=== PATIENT | female | born 1940 | race Caucasian/White ===

== ENCOUNTER 2023-11-18 11:23 | Outpatient (OUT) | payer MEDICARE, SELFPAY ==
--- NOTE | 2023-11-18 | XR_ITS ---
The [address] [address] Patient Name: TRISHA MICHELE MRN: [id number] date: 1940 Sex: F Assigned Patient Location: Current Patient Location: Accession/Order Number: [id number] Exam Date: 11/18/2023 11:25 Report Date: 11/20/2023 13:03 At the request of: RG WELLS Procedure: XR foot LT min 3V PROCEDURE: XR foot LT min 3V HISTORY: LEFT FOOT PAIN COMPARISON: XR foot left 01/13/2020 FINDINGS: BONES:Mechanical fusion the first metatarsophalangeal joint via dorsal plate and screws; no appreciable hardware fracture loosening. No bone fracture dislocation. Complete loss of plantar arch. SOFT TISSUES:No visible soft tissue swelling. EFFUSION:None visible. OTHER: Negative. XR/XR foot LT min 3V IMPRESSION: 1. Stable surgical changes without evidence of hardware failure or change in alignment. 2. Marked pes planus. 3. Minimal osteoarthritic changes for patient's age. Electronically authenticated by: MATTI NOVA Date: 11/20/2023 13:03
== END 2023-11-18 11:24 | disposition home or self-care (01) ==
LOC: EC 11:23
PROVIDERS: Visit Provider Podiatrist Foot & Ankle Surgery
DX: M79.672 Pain in left foot (principal); M24.675 Ankylosis, left foot
CPT/HCPCS: 73630

== ENCOUNTER 2025-02-08 10:30 | Outpatient (OUT) | payer MEDICARE, SELFPAY ==
--- OUTSIDE RECORDS SUMMARY | 2025-01-31 08:20 | XMS_ITS | Encounter Summary ---
Author Organization [facility] Address [address] [place] [address] Care Team Providers Care Horse Exerciser Name Role Phone Oakes, Amy Primary Care Provider [phone] Bert Baird MD Unavailable Chloe Peña Unavailable Reason for Visit * ReasonCommentsDysphagia Encounter Details DateTypeDepartmentCare Team (Latest Contact Info)Pwrcttpoeea26/27/2025 9:20 AM EDTOffice Visit [facility] [address] [place] [address] Adry Moore MD [address] [facility] [address] [place] [address] Chronic laryngitis (Primary Dx); LPRD (laryngopharyngeal reflux disease); Hoarse Social History Tobacco UseTypesPacks/DayYears UsedDateSmoking Tobacco: NeverSmokeless Tobacco: NeverAlcohol UseStandard Drinks/WeekCommentsYes0 (1 standard drink = 0.6 oz pure alcohol)AUDIT-CAnswerDate RecordedQ1: How often do you have a drink containing alcohol?Monthly or less05/17/2023Q2: How many drinks containing alcohol do you have on a typical day when you are drinking?1 or Q3: How often do you have six or more drinks on one occasion?Never05/17/2023CommentsUnknown Sex and Gender InformationValueDate RecordedSex Assigned at BirthNot on file Legal IavTiwxsb41/01/2023 8:32 PM EDTGender IdentityNot on fileSexual OrientationNot on filedocumented as of this encounter Last Filed Vital Signs Vital SignReadingTime TakenCommentsBlood Dbpstlox724/7410 9:23 AM EDT Wkfvi744701/31/2025 9:23 AM EDTTemperature--Respiratory Rate--Oxygen Saturation-- Inhaled Oxygen Concentration--Vvboys03.9 kg (154 lb)01/31/2025 9:23 AM EDTHeight 156.2 cm (5' 1.5 )01/31/2025 9:23 AM EDTBody Mass Index28.6301/31/2025 9:23 AM EDTdocumented in this encounter Progress Notes * Adry Moore MD - 01/31/2025 9:20 AM EDT Images from the original note were not included. Subjective Patient ID: Shima Mack is a 84 y.o. female who presents for Dysphagia Pt reports a few month h/o intermittent raspy throat. No illness at onset. Occasionally chokes on water. No eval or tx yet. Review of Systems All other systems reviewed and are negative. Family History[1] Active Ambulatory Problems Diagnosis Date Noted TIA (transient ischemic attack) 07/09/2021 Dry eyes 05/14/2024 Blepharitis of upper and lower eyelids of both eyes 05/14/2024 Anxiety 01/26/2025 Atrial tachycardia (HCC) 06/13/2023 Benign essential hypertension 06/13/2023 BMI 27.0-27.9,adult 01/26/2025 Cancer (HCC) 01/26/2025 Cerumen debris on tympanic membrane of both ears 01/26/2025 Depression 01/26/2025 Esophageal reflux 01/26/2025 Fitting and adjustment of orthopedic device 09/12/2009 Follow-up examination following surgery 06/20/2009 Frequent urination 01/26/2025 Hallux rigidus, left foot 01/26/2025 Hearing loss of both ears due to cerumen impaction 01/26/2025 History of urinary tract infection 01/26/2025 HTN (hypertension) 01/26/2025 Hyperlipidemia 08/12/2018 Irregular heart beat 01/26/2025 Language impairment 01/26/2025 Memory loss 01/26/2025 Microhematuria 01/26/2025 Nocturia 01/26/2025 Obesity (BMI 30.0-34.9) 08/12/2018 Obesity 01/26/2025 Acquired hallux rigidus 01/26/2025 Hypothyroidism 06/13/2023 Overactive bladder 01/26/2025 Pain in left foot 01/26/2025 Palpitations 06/13/2023 Paroxysmal supraventricular tachycardia (HCC) 08/12/2018 Posterior tibial tendon dysfunction 01/13/2012 Primary progressive aphasia (HCC) 01/26/2025 Shoulder joint painful on movement 03/21/2010 Straining to void 01/26/2025 Urethral stricture 01/26/2025 Mixed stress and urge urinary incontinence 01/26/2025 Urgency of urination 01/26/2025 Weak urine stream 01/26/2025 Resolved Ambulatory Problems Diagnosis Date Noted No Resolved Ambulatory Problems Past Medical History: Diagnosis Date Arthritis History of being hospitalized 06/2021 Mumps Skin cancer Thyroid disorder Varicella Vertigo Surgical History[2] Allergies[3] Medications Ordered Prior to Encounter[4] Objective Last Recorded Vitals Vitals: 01/31/25 0923 BP: 129/74 Pulse: 71 ENT Physical Exam Constitutional Appearance: patient appears well-developed, well-nourished and well-groomed, Head and Face Appearance: head appears normal and face appears atraumatic; Ear Tympanic Membranes: right tympanic membrane normal; Nose External Nose: nares patent bilaterally; external nose normal; Internal Nose: septum normal; Oral Cavity/Oropharynx Tongue: normal; Oral mucosa: normal; Hard palate: normal; Soft palate: normal; Tonsils: normal; OC/OP comments: Poor IDL Neck Neck: neck normal; neck palpation normal; Thyroid: thyroid normal; Respiratory Inspection: breathing unlabored; normal breathing rate; Auscultation: breath sounds are clear; Cardiovascular Inspection: extremities are warm and well perfused; no peripheral edema present; Auscultation: regular rate and rhythm; Patient ID: Shima Mack is a 84 y.o. female. Procedures A diagnostic flexible fiberoptic laryngoscopy was performed. The flexible fiberoptic laryngoscope was placed into the nose and advanced to the level of the tip of the epiglottis. Examination of the larynx including both surfaces of the epiglottis false and true vocal folds, arytenoids and surrounding mucosal surfaces shows gisselle arytenoid erythema. Normal bilateral true vocal fold motion is present. Bilateral piriform sinuses and base of tongue appear without lesion Assessment/Plan Diagnoses and all orders for this visit: Chronic laryngitis LPRD (laryngopharyngeal reflux disease) - famotidine (Pepcid) 20 MG tablet; Take 1 tablet (20 mg) by mouth at bedtime - omeprazole (PriLOSEC) [address] capsule; Take 1 capsule (40 mg) by mouth in the morning. Take before meals. Do not crush or chew. Hoarse Clear evidence of LPRD on exam, as well as some presbylarynges. Pt has not been taking her omeprazole per daughter. I will start a more aggressive reflux regimen and review meds and reflux precautions with daughter [1] Family History Problem Relation Name Age of Onset Prostate cancer Father Cancer Other Heart disease Other [2] Past Surgical History: Procedure Laterality Date CARDIAC ELECTROPHYSIOLOGY MAPPING AND ABLATION 03/2017 Cardiovascular - Ablation HYSTERECTOMY 1987 KNEE ARTHROSCOPY W/ DEBRIDEMENT ROTATOR CUFF REPAIR Bilateral 2005 SHOULDER SURGERY Left 08/29/2023 E/O STM JAB TONSILLECTOMY 1950 TOTAL KNEE ARTHROPLASTY Bilateral [3] No Known Allergies [4] Current Outpatient Medications on File Prior to Visit Medication Sig Dispense Refill aspirin 81 MG EC tablet Take 81 mg by mouth in the morning. atorvastatin (Lipitor) 40 MG tablet Take 40 mg by mouth Daily cholecalciferol (Vitamin D-3) 25 MCG (1000 UT) capsule Take 25 mcg by mouth Cipro 500 MG tablet Take 500 mg by mouth cyanocobalamin (Vitamin B-12) 100 MCG tablet Take 100 mcg by mouth in the morning. hydroCHLOROthiazide (HYDRODiuril) 12.5 MG tablet Take 12.5 mg by mouth Daily levothyroxine (Synthroid, Levoxyl) 25 MCG tablet magnesium oxide 400 MG capsule Take 400 mg by mouth in the morning. omeprazole (PriLOSEC) [address] capsule Take 20 mg by mouth in the morning. oxybutynin XL (Ditropan-XL) 5 MG 24 hr tablet Take 5 mg by mouth Daily Rexulti 2 MG tablet Take 1 tablet by mouth Daily venlafaxine XR (Effexor XR) 37.5 MG 24 hr capsule Take 37.5 mg by mouth Daily Do not crush or chew. venlafaxine XR (Effexor XR) 75 MG 24 hr capsule Take 75 mg by mouth Daily verapamil ER (Verelan) 120 MG 24 hr capsule Take 120 mg by mouth Daily [DISCONTINUED] Brexpiprazole (Rexulti) 1 MG tablet Take 1 mg by mouth Daily [DISCONTINUED] Ozempic, 1 MG/DOSE, 4 MG/3ML solution pen-injector No current facility-administered medications on file prior to visit. documented in this encounter Plan of Treatment DateTypeDepartmentCare Team (Latest Contact Info)Qjsvxiekmxs58/11/2026 9:45 AM ESTOffice Visit [facility] [address] [phone] Raul Nuñez DO [address] [place] [address] documented as of this encounter Visit Diagnoses Diagnosis Chronic laryngitis- Primary LPRD (laryngopharyngeal reflux disease) Acute laryngitis, without mention of obstruction Hoarse Dysphonia documented in this encounter Care Teams Team MemberRelationshipSpecialtyStart DateEnd Date Aga Oakes DO [address] [place] [address] PCP - GeneralFamily Medicine10/21/23 Bert Baird MD [address] [place] [address] Referring XwgkvrscyHnfhblton80/5/ Chloe Peña PA [address] [place] [address] Physician OzhfphkueEdejnwdbn50/5/24documented as of this encounter
--- OUTSIDE RECORDS SUMMARY | 2025-02-08 10:34 | XMS_ITS | Encounter Summary ---
Author Organization [facility] Address [address] [facility] [place] [address] Care Team Providers Care Sewage Screen Operator Name Role Phone Link, Dawson VACA Primary Care Provider [phone] Aga Oakes DO Primary Care Provider Bert Baird MD Unavailable Chloe Peña Unavailable Encounter Details DateTypeDepartmentCare Team (Latest Contact Info)Jtbggkyzfkf07/16/2024Clinisync Result Encounter [facility] External Department Unsolicited Eddie Ríos DO [address] [place] [address] Social History Tobacco UseTypesPacks/DayYears UsedDateSmoking Tobacco: NeverSmokeless Tobacco: NeverAlcohol UseStandard Drinks/WeekCommentsYes0 (1 standard drink = 0.6 oz pure alcohol)AUDIT-CAnswerDate RecordedQ1: How often do you have a drink containing alcohol?Monthly or less05/17/2023Q2: How many drinks containing alcohol do you have on a typical day when you are drinking?1 or Q3: How often do you have six or more drinks on one occasion?Never4CommentsUnknown Sex and Gender InformationValueDate RecordedSex Assigned at BirthNot on file Legal AeqFfqmtp19/01/2023 8:32 PM EDTGender IdentityNot on fileSexual OrientationNot on filedocumented as of this encounter Plan of Treatment DateTypeDepartmentCare Team (Latest Contact Info)Hqargjxiage23/11/2026 9:45 AM ESTOffice Visit [facility] [address] [place] [phone] Raul Nuñez, DO [address] [place] [address] documented as of this encounter Procedures Procedure NamePriorityDate/TimeAssociated DiagnosisCommentsXR CHEST 2 VIEWS 07/22/2023 2:55 PM EDT documented in this encounter Results * XR CHEST 2 VIEWS (07/22/2023 2:55 PM EDT)Anatomical RegionLateralityModality OtherSpecimen (Source)Anatomical Location / LateralityCollection Method / VolumeCollection TimeReceived Time07/22/2023 2:55 PM EDT Narrative 07/22/2023 5:33 PM EDT Exam Date/Time: 07/22/2023 15:12 EDT Reason for Exam: Z01.818 Encounter for other preprocedural examination Report IMPRESSION: ??NO RADIOGRAPHIC EVIDENCE OF ACTIVE DISEASE IN THE CHEST. CLINICAL INFORMATION: ??Z01.818 Encounter for other preprocedural examination COMPARISON: ??None available. FINDINGS: ??Two views of the chest were obtained. ??Heart and mediastinum appear normal. ??The lungs appear clear. ??Visualized bony thorax and remainder of the chest appears unremarkable. Ordering Provider: Eddie Ríos FINAL REPORT Dictated: ??07/22/2023 5:30 pm ? Signer Zac VACA Signed (Electronic Signature): ??07/22/2023 5:30 pm Signed by: ??Signer Zac VACA Transcribed by: ??DP ? Technologist: ??LKS Technical Comments Radiation Dose: Ka,r in mGy = na DAP = na Procedure Note Radiology, Radiologist, - 07/22/2023 Exam Date/Time: 07/22/2023 15:12 EDT Reason for Exam: Z01.818 Encounter for other preprocedural examination Report IMPRESSION: NO RADIOGRAPHIC EVIDENCE OF ACTIVE DISEASE IN THE CHEST. CLINICAL INFORMATION: Z01.818 Encounter for other preproceduralexamination COMPARISON: None available. FINDINGS: Two views of the chest were obtained. Heart and mediastinumappear normal. The lungs appear clear. Visualized bony thorax and remainder ofthe chest appears unremarkable. Ordering Provider: Eddie Ríos FINAL REPORT Dictated: 07/22/2023 5:30 pm Zac Looney MD Signed (Electronic Signature): 07/22/2023 5:30 pm Signed by: Zac Looney MD Transcribed by: ELAINE Technologist: LINSEY Technical Comments Radiation Dose: Ka,r in mGy = na DAP = na Authorizing ProviderResult TypeResult StatusEddie Ríos DOCLINISYNC IMAGING Final Result documented in this encounter Visit Diagnoses Not on filedocumented in this encounter Care Teams Team MemberRelationshipSpecialtyStart DateEnd Date Dawson Giron MD PCP - GeneralFamily Kusdtgvl61/19/237 Aga Oakes DO [address] [place] [address] PCP - GeneralFamily Medicine10/21/23 Bert Baird MD [address] [place] [address] Referring XjnmewpbgDjurswrxo67/5/ Chloe Peña PA [address] [place] [address] Physician JrzrqobggZrlhpgzvb70/5/24documented as of this encounter
--- OUTSIDE RECORDS SUMMARY | 2025-02-08 10:34 | XMS_ITS | Encounter Summary ---
Author Organization [facility] Address [address] [facility] [address] Care Team Providers Care Forest Management Professor Name Role Phone Aga Oakes DO Primary Care Provider [phone] Bert Baird MD Unavailable [phone] Chloe Peña Unavailable Encounter Details DateTypeDepartmentCare Team (Latest Contact Info)Epclvasopiy85/27/2025Bamboo flowsheet [facility] [address] [place] [address] Adry Moore MD [address] [place] [address] Social History Tobacco UseTypesPacks/DayYears UsedDateSmoking Tobacco: NeverSmokeless [...] RecordedSex Assigned at BirthNot on file Legal NznHekfkt73/01/2023 8:32 PM EDTGender IdentityNot on fileSexual OrientationNot on filedocumented as of this encounter Plan of Treatment DateTypeDepartmentCare Team (Latest Contact Info)Emeefaxpkfr18/11/2026 9:45 AM ESTOffice Visit [facility] [address] [place] [address] Raul Nuñez DO [address] [place] [address] documented as of this encounter Visit Diagnoses Not on filedocumented in this encounter Care Teams Team MemberRelationshipSpecialtyStart DateEnd Date Aga Oakes DO [address] [place] [address] PCP - GeneralFamily Medicine10/21/23 Bert Baird MD [address] [place] [address] Referring VacmzhjoqVwzaznvmf09/5/ Chloe Peña PA [address] [place] [address] Physician AzocjtxcdCaridknqj72/5/24documented as of this encounter
--- OUTSIDE RECORDS SUMMARY | 2025-02-08 10:34 | XMS_ITS | Clinical Summary ---
Author Organization [facility] Address [address] [place] [address] Care Team Providers Care Medical Nurse Name Role Phone Aga Oakes Primary Care Provider [phone] Chloe Peña Unavailable Allergies No known active allergies Medications MedicationSigDispense QuantityRefillsLast FilledStart DateEnd DateStatus atorvastatin (Lipitor) 40 MG tablet Take 40 mg by mouth Daily03/25/2023ctive hydroCHLOROthiazide (HYDRODiuril) 12.5 MG tablet Take 12.5 mg by mouth Daily03/29/2023ctive levothyroxine (Synthroid, Levoxyl) 25 MCG tablet 01/06/2023ctive oxybutynin XL (Ditropan-XL) 5 MG 24 hr tablet Take 5 mg by mouth Daily03/29/2023ctive venlafaxine XR (Effexor XR) 75 MG 24 hr capsule Take 75 mg by mouth Daily03/29/2023ctive verapamil ER (Verelan) 120 MG 24 hr capsule Take 120 mg by mouth Daily04/29/2023ctive aspirin 81 MG EC tablet Take 81 mg by mouth in the morning.Active cholecalciferol (Vitamin D-3) 25 MCG (1000 UT) capsule Take 25 mcg by mouthActive cyanocobalamin (Vitamin B-12) 100 MCG tablet Take 100 mcg by mouth in the morning.Active magnesium oxide 400 MG capsule Take 400 mg by mouth in the morning.Active Cipro 500 MG tablet Take 500 mg by mouth07/11/2023ctive venlafaxine XR (Effexor XR) 37.5 MG 24 hr capsule Take 37.5 mg by mouth Daily Do not crush or chew.Active Rexulti 2 MG tablet Take 1 tablet by mouth Daily07/21/2024tive famotidine (Pepcid) 20 MG tablet Indications:LPRD (laryngopharyngeal reflux disease)Take 1 tablet (20 mg) by mouth at bedtime 90 tablet ctive omeprazole (PriLOSEC) [address] capsule Indications:LPRD (laryngopharyngeal reflux disease)Take 1 capsule (40 mg) by mouth in the morning. Take before meals. Do not crush or chew. 90 capsule ctive Ozempic, 1 MG/DOSE, 4 MG/3ML solution pen-injector Discontinued(Therapy completed) omeprazole (PriLOSEC) [address] capsule Take 20 mg by mouth in the morning.01/31/2025Discontinued Brexpiprazole (Rexulti) 1 MG tablet Take 1 mg by mouth Daily01/31/2025Discontinued(Therapy completed) Active Problems ProblemNoted DateDiagnosed KvgyBtzvuvc75/22/2025MI 27.0-27.9,adult01/26/2025 Aaniwg7201/26/2025erumen debris on tympanic membrane of both ears01/26/2025 Hebtxtjhon66/22/2025Esophageal yfkvbe4101/26/2025Frequent /22/2025 Hallux rigidus, left foot01/26/2025Hearing loss of both ears due to cerumen jrvcppnuk35/22/2025History of urinary tract cuzvfuxve95/22/2025HTN (hypertension)01/26/2025Irregular heart beat01/26/2025Language impairment 01/26/2025Memory loss01/26/20250909Ptmhxvttvmieom28/22/0274Uqwbxpby09/22/2025Obesity 01/26/2025quired hallux gxmfgnh2501/26/2025Overactive grkfidg3801/26/2025Pain in left foot01/26/2025Primary progressive izjfgfd0901/26/2025Straining to void 01/26/2025Urethral frybdvrlf13/22/2025Mixed stress and urge urinary incontinence 01/26/2025Urgency of gmubsdzmf91/22/2025Weak urine caslud3701/26/2025Dry eyes 05/14/2024lepharitis of upper and lower eyelids of both eyes05/14/2024trial cddojfpatvx09/08/2024enign essential lutsvajqnptb44/08/2024Hypothyroidism 06/13/20239099Knwporjpueje17/08/2024TIA (transient ischemic attack)07/09/2021 Overview (12/10/2023): Patient was seen at [facility] 06/25/2021 to 06/26/2021 for concern for stroke due to paresthesias of the left arm. CTA of the head and MRA of the head were nonacute. Head CT was nonacute. Brain MRI revealedno acute process. It did reveal chronic changes likely consistent with small vessel ischemic changes. Carotid ultrasound revealed less that 50% stenosis of carotids bilaterally. Her symptoms have reso lved. She does follow with massage therapy for neck pain. Overall, she is feeling back to baseline and is compliant with aspirin. Assessment & Plan (10/11/2023 9:43 AM EDT): *07/30/2021 Patient was seen at [facility] 06/25/2021 to 06/26/2021 for concern for stroke due to paresthesias of the left arm. CTA of the head and MRA of the head were nonacute. Head CT was nonacute. Brain MRI revealedno acute process. It did reveal chronic changes likely consistent with small vessel ischemic changes. Carotid ultrasound revealed less that 50% stenosis of carotids bilaterally. Her symptoms have reso lved. She does follow with massage therapy for neck pain. Overall, she is feeling back to baseline and is compliant with aspirin. Gxwtbjyynonxbx74/08/2019 Overview (01/26/2025): Last Assessment & Plan: Assessment: Managed with med Obesity (BMI 30.0-34.9)08/12/2018Paroxysmal supraventricular tachycardia 08/12/2018 Overview (01/26/2025): Last Assessment & Plan: Assessment: s/p ablation 01/2018; Monitored by Dr. Maritza Sagastume, no other episodes since. Posterior tibial tendon kjpqylscfkp10/08/2012Shoulder joint painful on movement 03/21/2010Fitting and adjustment of orthopedic ekdtvr9909/12/2009Follow-up examination following iwbjlur9806/20/2009 Encounters DateTypeDepartmentCare QjgtQwadtcabpoy51/27/2025 9:20 AM EDTOffice Visit [facility] [address] [place] [phone] Adry Moore MD Chronic laryngitis (Primary Dx); LPRD (laryngopharyngeal reflux disease); Tfswsa6101/31/2025amboo flowsheet [facility] [address] [place] [address] Adry Moore MD 01/31/2025Travelfrom Last 3 Months Immunizations ImmunizationAdministration DatesNext DueInfluenza, High Dose Seasonal, Preservative Free01/22/2021,01/26/2019,01/15/2018,01/15/2017Influenza, High-dose Seasonal, Quadrivalent, Preservative Free12/31/2022,01/16/2022Influenza, live, kjeccqrlmt86/19/2019Influenza, seasonal, ntcgtyczsp39/01/2020,01/05/2019, 01/23/2015,01/18/2013Influenza, seasonal, injectable, preservative free 12/27/2019Pneumococcal Conjugate PCV 1310187Anza79/11/2023Zoster, Vwsjvcywflx23/23/2019,01/21/2019 Family History Medical HistoryRelationNameCommentsProstate cancerFatherCancerOtherHeart disease OtherRelationNameStatusCommentsFatherOther Social History Tobacco UseTypesPacks/DayYears UsedDateSmoking Tobacco: NeverSmokeless [...] RecordedSex Assigned at BirthNot on file Legal HopQkpiuo63/01/2023 8:32 PM EDTGender IdentityNot on fileSexual OrientationNot on file Last Filed Vital Signs Vital SignReadingTime TakenCommentsBlood Ynvknvnl805/7401/31/2025 9:23 AM EDT Nodip557901/31/2025 9:23 AM MBHRzqtdsvduqw85.2 ??C (97.2 ??F)06/05/2023 9:04 AM ESTRespiratory Sjqa962507/07/2024 1:59 PM EDTOxygen Onmtniltst98%07/07/2024 1:59 PM EDTInhaled Oxygen Concentration--Yxqmve76.9 kg (154 lb)01/31/2025 9:23 AM EDT Rdfbou774.2 cm (5' 1.5 )01/31/2025 9:23 AM EDTBody Mass Index28.6301/31/2025 9:23 AM EDT Plan of Treatment DateTypeDepartmentCare Team (Latest Contact Info)Sgtyzblucao63/11/2026 9:45 AM ESTOffice Visit [facility] [address] [place] [phone] Raul Nuñez, DO [address] [place] [address] Health MaintenanceDue DateLast DoneCommentsPneumococcal Vaccine: 65+ Years (2 of 2 - PCV20 or PCV21)COVID-19 Vaccine ( season) 4, 02/09/2021, 07/15/2020, Additional history existsInfluenza Vaccine (#1)509/, 01/16/2022, 01/22/2021, Additional history exists Insurance Care Teams Team MemberRelationshipSpecialtyStart DateEnd Date Aga Oakes DO [address] [place] [address] PCP - GeneralFamily Medicine10/21/23 Chloe Peña PA [address] [place] [address] Physician EmnumhvfmLlnzpwbwh91/5/24
--- OUTSIDE RECORDS SUMMARY | 2025-02-08 10:34 | XMS_ITS | Encounter Summary ---
Author Organization [facility] Address [address] [place] [address] Care Team Providers Care Space Operations Name Role Phone Aga Oakes Primary Care Provider [phone] Bert Baird MD Unavailable [phone] Chloe Peña Unavailable Encounter Details DateTypeDepartmentCare Team (Latest Contact Info)Srpsdsihrwe45/27/2025Travel Social History Tobacco UseTypesPacks/DayYears UsedDateSmoking Tobacco: NeverSmokeless [...] RecordedSex Assigned at BirthNot on file Legal FrgGvsarz77/01/2023 8:32 PM EDTGender IdentityNot on fileSexual OrientationNot on filedocumented as of this encounter Plan of Treatment DateTypeDepartmentCare Team (Latest Contact Info)Klpiofixyej34/11/2026 9:45 AM ESTOffice Visit [facility] [address] [place] [address] Raul Nuñez, DO [address] [place], [place] [address] documented as of this encounter Visit Diagnoses Not on filedocumented in this encounter Care Teams Team MemberRelationshipSpecialtyStart DateEnd Date Aga Oakes DO [address] [facility] [address] [facility] - [facility]10/21/23 Bert Baird MD [address] [facility] [address] Referring BdnsmwufzJndkkamyw47/5/ Chloe Peña PA [address] [place] [address] Physician DladiojquJgixwvzxv64/5/24documented as of this encounter
--- OUTSIDE RECORDS SUMMARY | 2025-02-08 10:34 | XMS_ITS | Clinical Summary ---
Author Organization [facility] Address [address] [place] [address] Phone Care Team Providers Care Gluing Machine Operator Electronic Name Role Phone Link, Dawson Juarez DO Primary Care Provider [phone] Allergies No known active allergies Medications MedicationSigDispense QuantityRefillsLast FilledStart DateEnd DateStatus aspirin 81 mg EC tablet Take 1 tablet (81 mg) by mouth once daily.Active atorvastatin (Lipitor) 10 mg tablet Take 1 tablet (10 mg) by mouth once daily at bedtime.07/02/2018Active cholecalciferol (Vitamin D-3) 25 MCG (1000 UT) capsule Take 1 capsule (25 mcg) by mouth.Active cyanocobalamin (Vitamin B-12) 100 mcg tablet Take 1 tablet (100 mcg) by mouth once daily.Active levothyroxine (Synthroid, Levoxyl) 25 mcg tablet Take 1 tablet (25 mcg) by mouth.01/06/2023ctive magnesium oxide 400 mg magnesium capsule Take 1 capsule (400 mg) by mouth once daily.Active multivitamin tablet Take 1 tablet by mouth.05/22/2009ctive omeprazole (PriLOSEC) [address] capsule Take 1 capsule (20 mg) by mouth once daily.Active venlafaxine (Effexor) 75 mg tablet Take 1 tablet (75 mg) by mouth once daily.Active verapamil ER (Veralan PM) 120 mg 24 hr capsule Take 1 capsule (120 mg) by mouth once daily.06/02/2018Active Active Problems ProblemNoted DateDiagnosed DateAtrial tkghjlcaebp22/08/2024enign essential fnmrspzmadmq37/08/6719Sthxmcrwimpghu83/08/1829Laktjltrkzgs90/08/2024 Qdtazyaujbjlfv11/08/2019 Overview (06/13/2023): Last Assessment & Plan: Assessment: Managed with med Paroxysmal supraventricular pnzcbiwmhew05/08/2019 Overview (06/13/2023): Last Assessment & Plan: Assessment: s/p ablation 01/2018; Monitored by Dr. Maritza Sagastume, no other episodes since. Family History Medical HistoryRelationNameCommentsCancerFatherCancerMotherRelationNameStatus CommentsFatherMother Social History Tobacco UseTypesPacks/DayYears UsedDateSmoking Tobacco: Never Tobacco Cessation:Counseling Given: Not Answered Alcohol UseStandard Drinks/WeekCommentsNever0 (1 standard drink = 0.6 oz pure alcohol)CommentsUnknownSex and Gender InformationValueDate RecordedSex Assigned at BirthNot on fileLegal QfyRwibqq29/26/2022 12:13 AM ESTGender IdentityNot on fileSexual OrientationNot on file Last Filed Vital Signs Vital SignReadingTime TakenCommentsBlood Ddshbnxh434/6206 9:47 AM EDT Tizui594009/10/2022 9:47 AM EDTTemperature--Respiratory Rate--Oxygen Saturation-- Inhaled Oxygen Concentration--Begifw50.5 kg (162 lb)09/10/2022 9:47 AM EDTHeight 157.5 cm (5' 2 )09/10/2022 9:47 AM EDTBody Mass Index29.63009/10/2022 9:47 AM EDT Plan of Treatment Health MaintenanceDue DateLast DoneCommentsLipid Panel1941Medicare Annual Wellness Visit (AWV)1941TSH Level2Diabetes Uftdcrzcy98/08/1960 DTaP/Tdap/Td Vaccines (1 - Tdap)1963Pneumococcal Vaccine (1 of 1 - PCV) 1991Zoster Vaccines (1 of 2)1991Bone Density Scan2006RSV High Risk: (Elderly (60+) or Population) (1 - 1-dose 75+ series)2016 Influenza Vaccine (#1)2024OVID-19 Vaccine (2024- season)2024 HIB VaccinesAged OutNo longer eligible based on patient's age to complete this topicHPV VaccinesAged OutNo longer eligible based on patient's age to complete this topicHepatitis A VaccinesAged OutNo longer eligible based on patient's age to complete this topicHepatitis B VaccinesAged OutNo longer eligible based on patient's age to complete this topicIPV VaccinesAged OutNo longer eligible based on patient's age to complete this topicMeningococcal VaccineAged OutNo longer eligible based on patient's age to complete this topicRotavirus VaccinesAged Out No longer eligible based on patient's age to complete this topic Insurance Care Teams Team MemberRelationshipSpecialtyStart DateEnd Date Link, Dawson Juarez DO [facility] - General04/07/11
--- OUTSIDE RECORDS SUMMARY | 2025-02-08 10:36 | XMS_ITS | CCD ---
Author Organization [facility] Care Team Providers Care Order Department Supervisor Name Role Phone CARLITOS, AUTUMN Unavailable Unavailable CARLITOS, AUTUMN Unavailable Unavailable EDVIN-ÓSCAR, PORFIRIO Unavailable Unavailable MOSTLALITA JG Justa Unavailable Unavailable EDVIN-CANTRELL, PORFIRIO Unavailable Unavailable MOSTLALITA JG D Unavailable Unavailable MOSTLALITA JG D Unavailable Unavailable KRYSTINA, PORFIRIO Unavailable Unavailable ROLDAN SALAS Unavailable Unavailable KRYSTINA PORFIRIO Unavailable Unavailable ZACHARY RIVERA Admitting Unavailable ZACHARY RIVERA Attending Unavailable MATTI NOVA Consulting Unavailable ZACHARY RIVERA Consulting Unavailable ZACHARY RIVERA Admitting Unavailable ZACHARY RIVERA Attending Unavailable MIS, DOCTOR Primary Care Unavailable ZACHARY RIVERA Consulting Unavailable Dawson Giron Primary Care Physician Heather Robledo Unavailable Unavailable Anamaria Finch Unavailable Unavailable Dawson Giron Unavailable Unavailable Unavailable Avel Werner Unavailable MD Avel Werner Attending Provider Avel Werner Attending Unavailable Avel Werner Admitting Unavailable Magalis Power Unavailable Dr. Dawson Giron Primary Care Unava ilable Roldan Salas Attending Unavailable Roldan Salas Referring Unavailable Dawson Giron MD Primary Care Provider Luann Ford Primary Care Physician [phone] Elizabeth Rebollar Unavailable Unavailable Aga Oakes Primary Care Physician [phone] Matti Baird Attending Unavailable Matti Baird Admitting Unavailable Aga Oakes MD Primary Care Provider Matti Baird MD Unavailable [phone] Chloe Henning Unavailable Adán Caba Attending Unavailable Aga Oakes Referring Unavailable Urmila Bueno Attending Unavailable Vee Sutherland Attending Unavailable Aga Oakes Referring Unavailable Aga Oakes Attending Unavailable Dileep Leija, Chris Attending Provider NON STAFF Primary Care Provider Unavailabl e NON STAFF Primary Care Provider Unavailabl e Dileep PhD, Chris Attending Provider Nitin SINGH Attending Unavailable Aga Oakes Attending Unavailable Aga Oakes Admitting Unavailable Urmila Bueno Attending Unavailable Vee Sutherland Attending Unavailable Aga Oakes Referring Unavailable Aga Oakes Attending Unavailable Aga aOkes DO Primary Care Provider Oli VACA, Matti Unavailable Chloe Henning Unavailable Dawson Giron MD Primary Care Provider OUMOU RODARTE Attending Unavailable NATASHA STUBBS Attending Unavailable NATASHA STUBBS Attending Unavailable EDDIE SIDHU Referring Unavailable EDDIE SIDHU Attending Unavailable RIOS CANO Attending Unavailable Medications Current Medications MedicationDrug Class(es)DatesSig (Normalized)Sig (Original)amoxicillin 500 mg oral capsule (2 sources)Penicillin-class AntibacterialStart: 25-57-7628Jrjgftaeagh 500 MG 6 capsules before procedure and 3 after procedure Orally every 8 hrs for 10 day(s) Jul, ActiveAspir 81 (18 sources)Start: 67-80-7434pgvd 81 mg by mouth once dailyAspir 81 81 mg, Oral, Daily, Refills(s) 0, Prophylaxis Start Date: 03/19/15 Status: Ordered Repeat n umber: 1Start: 11-76-6265kscx 81 mg by mouth once dailyAspir 81 81 mg, Oral, Daily, Refills(s) 0, Prophylaxis Start Date: 03/19/15 Status: OrderedAspir-81 81 MG (2 sources)take 1 tablet by mouth once dailyAspir-81 81 MG 1 tablet Orally Once a day Activeaspirin 81 mg delayed release oral tablet (20 sources)Platelet Aggregation Inhibitor, Nonsteroidal Anti-inflammatory Drug take 1 tablet by mouth in the morningaspirin 81 MG EC tablet Take 81 mg by mouth in the morning. Activeatorvastatin 40 mg oral tablet (20 sources)HMG-CoA Reductase InhibitorStart: 88-83-9756axxq 1 tablet by mouth once dailyatorvastatin (Lipitor) 40 MG tablet Take 40 mg by mouth Daily 03/25/2023 ActiveStart: 52-58-3014ncac 1 tablet by mouth once dailyatorvastatin 10 mg Tab 10 mg = 1 tab(s), Oral, Daily, Refills(s) 0 Start Date: 06/26/21 Status: Ordered Repeat number: 1brexpiprazole 2 mg oral tablet (10 sources)Atypical AntipsychoticStart: 10-82-3660ovxe 1 tablet by mouth once dailyRexulti 2 MG tablet Take 1 tablet by mouth Daily 07/21/2024 Active End: 14-92-7639ecvy 1 tablet by mouth once dailyBrexpiprazole (Rexulti) 1 MG tablet Take 1 mg by mouth Daily 01/31/2025 Discontinued (Therapy completed) Calcium (2 sources)Phosphate Binder, CalciumCalcium 150 MG Orally ActiveCentrum Silver - (2 sources)Centrum Silver - Orally Activecholecalciferol 0.025 mg oral capsule (20 sources)Vitamin Dcholecalciferol (Vitamin D-3) 25 MCG (1000 UT) capsule Take 25 mcg by mouth ActiveVitamin D (Cholecalciferol) 25 MCG (1000 UT) Oral Capsule Quantity: 0 Refills: 0 Ordered: 21-May-2021 DO Activeciprofloxacin 500 mg oral tablet (20 sources)Quinolone AntimicrobialStart: 07-11-2023 End: 71-16-9256Xfenx 500 MG tablet Take 500 mg by mouth 07/11/2023 Active famotidine 20 mg oral tablet (2 sources)Histamine-2 Receptor AntagonistStart: 01-31-2025 End: 95-14-8264ztfs 1 tablet by mouth at bedtimefamotidine (Pepcid) 20 MG tablet Indications: LPRD (laryngopharyngeal reflux disease) Take 1 tablet(20 mg) by mouth at bedtime 90 tablet 01/31/2025 05/01/2025 ActivehydroCHLOROthiazide 12.5 mg oral tablet (20 sources)Thiazide DiureticStart: 08-39-0638ejyz 1 tablet by mouth once daily hydroCHLOROthiazide (HYDRODiuril) 12.5 MG tablet Take 12.5 mg by mouth Daily 03/29/2023 Activelevothyroxine sodium 0.025 mg oral tablet (20 sources)l-ThyroxineStart: 45-83-3253upbrzjknqsqzn (Synthroid, Levoxyl) 25 MCG tablet 01/06/2023 ActiveStart: 56-87-7102rcdg 1 tablet by mouth once daily levothyroxine 25 mcg (0.025 mg) Tab 37.5 mcg = 1.5 tab(s), Oral, Daily, Refills(s) 0 Start Date: 06/26/21 Status: Ordered Repeat number: 1Start: 66-42-7044qwcv 1 tablet by mouth once dailylevothyroxine 25 mcg (0.025 mg) Tab 37.5 mcg = 1.5 tab(s), Oral, Daily, Refills(s) 0 Start Date: 06/26/21 Status: Orderedtake 1 tablet by mouth once dailyLevothyroxine Sodium 25 MCG Oral Tablet TAKE 1 TABLET DAILY. Quantity: 0 Refills: 0 Ordered: 21-May-2021 DO Activetake 1 tablet by mouth once daily in the morningSynthroid 50 MCG 1 tablet on an empty stomach in the morning Orally Once a day ActiveLORazepam 2 mg oral tablet (2 sources)Benzodiazepinetake 1 tablet by mouth every twenty-four hoursAtivan 2 MG 1 tablet at bedtime as needed Orally Once a day ActiveMagnesium (2 sources)take 2 tablets by mouth once dailyMagnesium 200 MG 2 tablets with a meal Orally Once a day Activemagnesium oxide 400 mg oral capsule (20 sources)take 1 capsule by mouth in the morningmagnesium oxide 400 MG capsule Take 400 mg by mouth in the morning. ActiveMagnesium Oxide 400 MG CAPS TAKE DIRECTED. Quantity: 0 Refills: 0 Ordered: 21-May-2021 DO ActiveMultivitamins and Minerals (18 sources)Start: 33-81-4142vgnu 1 tablet by mouth once dailyMultivitamins and Minerals 1 tab(s), Oral, Daily, Refill(s) 0 Start Date: 06/26/21 Status: Ordered Repeat number: 1Start: 72-73-4647wzff 1 tablet by mouth once dailyMultivitamins and Minerals 1 tab(s), Oral, Daily, Refill(s) 0 Start Date: 06/26/21 Status: Orderedomeprazole 40 mg delayed release oral capsule (20 sources)Proton Pump InhibitorStart: 01-31-2025 End: 53-97-1447zcyc 1 capsule by mouth before mealtimeomeprazole (PriLOSEC) [address] capsule Indications: LPRD (laryngopharyngeal reflux disease) Take 1 c apsule (40 mg) by mouth in the morning. Take before meals. Do not crush or chew. 90 capsule 01/31/2025 05/01/2025 ActiveStart: 06-26-2021 End: 28-06-8831burb 1 capsule by mouth once dailyomeprazole 20 mg Cap-DR 20 mg = 1 cap(s), Oral, Daily, Refills(s) 0 Start Date: 06/26/21 Status: Ordered Repeat number: 1omeprazole 20 mg Cap-DR (2 sources)Start: 33-57-4028qpnw 1 capsule by mouth once dailyomeprazole 20 mg Cap-DR 20 mg = 1 cap(s), Oral, Daily, Refills(s) 0 Start Date: 06/26/21 Status: Jdurcun22 hr oxybutynin chloride 5 mg extended release oral tablet (20 sources)Cholinergic Muscarinic AntagonistStart: 94-64-9863dfua 1 tablet by mouth once dailyoxybutynin XL (Ditropan-XL) 5 MG 24 hr tablet Take 5 mg by mouth Daily 03/29/2023 ActiveStart: 75-10-7559upwt 1 tablet by mouth every twenty-four hours in the morningoxybutynin XL (Ditropan-XL) 5 MG 24 hr tablet Take 5 mg by mouth in the morning. 03/29/2023 ActiveStart: 76-30-9748olxj 1 tablet by mouth once daily as neededoxybutynin 5 mg Tab 5 mg = 1 tab(s), Oral, Daily, PRN for urinary discomfort, # 90 tab(s), Refills(s) 3, Pharmacy: [facility], 156, cm, 07/16/21 10:02:00 EDT, Height/Length Dosing,81, kg, 07/16/21 10:02:00 EDT, Weight Dosing Start Date: 07/16/21 Status: Ykucacx57 hr venlafaxine 75 mg extended release oral capsule (20 sources)Serotonin and Norepinephrine Reuptake InhibitorStart: 37-45-8146lwca 1 capsule by mouth once dailyvenlafaxine XR (Effexor XR) 75 MG 24 hr capsule Take 75 mg by mouth Daily 03/29/2023 ActiveStart: 33-77-0854yvuq 1 capsule by mouth every twenty-four hours in the morningvenlafaxine XR (Effexor XR) 75 MG 24 hr capsule Take 75 mg by mouth in the morning. 03/29/2023 ActiveStart: 43-90-6362sojf 1 tablet by mouth once dailyvenlafaxine 75 mg oral tablet, extended release 75 mg = 1 tab(s), Oral, Daily, Refills(s) 0 Start Date: 06/26/21 Status: Ordered Repeat number: 1take 1 capsule by mouth once dailyvenlafaxine XR (Effexor XR) 37.5 MG 24 hr capsule Take 37.5 mg by mouth Daily Do not crush or chew.Activetake 1 tablet by mouth once dailyVenlafaxine HCl - 75 MG Oral Tablet TAKE 1 TABLET DAILY. Quantity: 0 Refills: 0 Ordered: 21-May-2021 DO Ozumwn97 hr verapamil hydrochloride 120 mg extended release oral capsule (20 sources)Calcium Channel BlockerStart: 40-28-5899nkxw 1 capsule by mouth every twenty-four hours in the morningverapamil ER (Verelan) 120 MG 24 hr capsule Take 120 mg by mouth in the morning. 04/29/2023 ActiveStart: 09-10-2022 take 0.5 tablet by mouth once dailyVerapamil HCl ER 120 MG Oral Tablet Extended Release TAKE 0.5 TABLET Daily Quantity: 45 Refills: 3 Ordered: 10-Sep-2022 Roldan Salas MD Start : 10-Sep-2022 ActiveStart: 35-80-4144xivj 1 capsule by mouth once dailyverapamil ER (Verelan) 120 MG 24 hr capsule Take 120 mg by mouth Daily 04/29/2023 ActiveStart: 39-79-5132weoy 1 capsule by mouth once daily verapamil 120 mg Cap-ER 120 mg = 1 cap(s), Oral, Daily, Refills(s) 0 Start Date: 06/26/21 Status: OrderedVitamin B Complex (2 sources)Vitamin B Complex - Orally Activevitamin b12 0.1 mg oral tablet (19 sources)Vitamin N06cony 1 tablet by mouth in the morningcyanocobalamin (Vitamin B-12) 100 MCG tablet Take 100 mcg by mouth in the morning. Active Completed/Discontinued Medications MedicationDrug Class(es)DatesSig (Normalized)Sig (Original)betamethasone 3 mg/ml / betamethasone acetate 3 mg/ml injectable suspension (8 sources)CorticosteroidStart: 07-26-2024 End: 85-40-8487vbzwohsuyzqvq acetate-betamethasone sodium phosphate (Celestone) injection 1 mLStart: 07-26-2024 End: mL, Intra-articular, Once PRN Procedure, Starting on Fri07/26/24 at 1015, For 1 dosecelecoxib 100 mg oral capsule (2 sources)Nonsteroidal Anti-inflammatory DrugStart: 08-29-2023 End: 25-38-0465cyjx 1 capsule by mouth in the morning for paincelecoxib (CeleBREX) 100 MG capsule Indications: Status post shoulder surgery Take 1 capsule (100 mg) by mouth in the morning and 1 capsule (100 mg) before bedtime. Take as needed for pain. 60 capsule 08/29/2023 11/27/2023 ExpiredMulti Vitamin TABS (3 sources)Multi Vitamin TABS TAKE 1 TABLET DAILY. Quantity: 0 Refills: 0 Ordered: 21-May-2021 DO ActiveOzempic, 1 MG/DOSE, 4 MG/3ML solution pen-injector (20 sources)Start: 03-25-2023 End: 73-38-5702Tvkfmyd, 1 MG/DOSE, 4 MG/3ML solution pen-injector 03/25/2023 01/31/2025 Discontinued (Therapy completed)Start: 84-34-8425Gdloptb, 1 MG/DOSE, 4 MG/3ML solution pen-injector 03/25/2023 ActiveStart: 22-87-1232ollbes 1 mg by subcutaneous injection every weekOzempic, 1 MG/DOSE, 4 MG/3ML solution pen- injector INJECT 1 MG SUBCUTANEOUSLY ONCE A WEEK 03/25/2023 ActiveStart: 90-03-2413fxyrus 1 mg by subcutaneous injection every weekOzempic, 1 MG/DOSE, 4 MG/3ML solution pen-injector INJECT 1 MG SUBCUTANEOUSLY ONCE A WEEK 0 03/25/2023 Activetriamcinolone acetonide 40 mg/ml injectable suspension (3 sources)CorticosteroidStart: 32-25-1012Xcazjzk-40 Jul, 40 mgStart: 21-47-5531Vgvzzug -40 mg Jan, 40 mgStart: 78-80-1737Vmflvbu -40 mg Mar, 40 mgVitamin B12 TABS (3 sources)Vitamin B12 TABS TAKE 1 TABLET DAILY DIRECTED. Quantity: 0 Refills: 0 Ordered: 21-May-2021 DO Active Problems Active Problems Problem ClassificationProblemDateDocumented DateEpisodic/ChronicAcquired foot deformities (8 sources)Toe joint rigid; Translations: [Hallux rigidus, left foot]Onset: 228822-43-8688YesrrlrEgkvuie disorders (10 sources)Anxiety; Translations: [Anxiety disorder, unspecified]Onset: 868711-48-5700VegngvxYhzsyxi dysrhythmias (20 sources)Supraventricular tachycardia; Translations: [Supraventricular tachycardia]Onset: 28-21-7441RllvtziDvwtqhfq atherosclerosis and other heart disease (2 sources)Coronary atherosclerosis and other heart diseaseOnset: 11-21-2016 Delirium, dementia, and amnestic and other cognitive disorders (20 sources)Progressive aphasia; 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]Onset: 01-26-2025 98-10-7800YglafeoAzsvcadossqbr disorders (8 sources)Disorder of language; 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, unspecified]Onset: 508363-58-0680LlvhoezIvcmskmwj of lipid metabolism (20 sources)Hyperlipidemia, unspecified; Translations: [Hyperlipidemia]Onset: 52-19-8463MthjgnjK Codes: Fall (1 source)Fall; Translations: [Unspecified fall, initial encounter]Onset: 26-24-7911QwdiovqnIrwclgthau disorders (20 sources)Gastroesophageal reflux disease without esophagitis; Translations: [Gastro-esophageal reflux disease without esophagitis]Onset: 93-46-4993Cfqrygf Essential hypertension (20 sources)Essential hypertension; Translations: [Essential (primary) hypertension]Onset: 34-99-9028VwqssqhBgqaqwfijsily symptoms and ill-defined conditions (20 sources)Genuine stress incontinence; Translations: [Urge incontinence of urine]Onset: 563365-19-6256PplzhebDordpvgryglnz symptoms and ill-defined conditions (20 sources)Abnormal urinary stream; Translations: [History of urinary tract infection]Onset: 512887-08-1618WmdwbjvuIshzl valve disorders (18 sources)Irregular heart bxfm85-09-1939AvaxubslPqnfkkqzz neoplasm without specification of site (20 sources)Malignant neoplastic disease; Translations: [Malignant (primary) neoplasm, unspecified]Onset: 780246-73-5035UfqlbefOufq disorders (20 sources)Depressive disorder; Translations: [Depression, unspecified]Onset: 17-54-5401XifdfeuXbne disorders (1 source)Mood disordersOnset: 14-93-1291Sycisfdqudpman (6 sources)Arthritis of right glenohumeral joint; Translations: [Primary osteoarthritis, right shoulder]Onset: 02-01-2021 Resolved: 76-30-7667AihsyzeGbwwt circulatory disease (4 sources)Other specified symptoms and signs involving the circulatory and respiratory systems; Translations:[OTH SPEC SX SIGNS INVLV CIRC RS]Onset: 17-81-0303EafwgiijAkahf circulatory disease (8 sources)History of transient ischemic attack; Translations: [Personal history of transient ischemic attack (TIA), and cerebral infarction without residual deficits]94-98-8202GacgjbarIhrjl connective tissue disease (1 source)Pain in left foot; Translations: [PAIN IN LEFT FOOT]Onset: 01-28-2020 EpisodicOther connective tissue disease (1 source)Pain in right foot; Translations: [PAIN IN RIGHT FOOT]Onset: 54-38-9015YexrtokoRlpee connective tissue disease (2 sources)Nontraumatic rotator cuff tear; Translations: [Unspecified rotator cuff tear or rupture of right shoulder, not specified as traumatic]EpisodicOther connective tissue disease (2 sources)Unspecified rotator cuff tear or rupture of right shoulder, not specified as traumatic; Translations: [Nontraumatic tear of right rotator cuff, unspecified tear extent M75.101]Onset: 02-01-2021 Resolved: 68-60-0983WrbyuaiwHhszo connective tissue disease (4 sources)Pain in left foot; Translations: [Pain in left foot]Onset: 01-26-2025 76-85-1179PperajbeUekmu diseases of bladder and urethra (16 sources)Overactive bladder; Translations: [Overactive bladder]Onset: 966676-31-9231KophcdtQzkmv diseases of bladder and urethra (4 sources)Detrusor overactivity; Translations: [Overactive bladder]Onset: 89-27-4310QnsapyxOdwlj diseases of bladder and urethra (20 sources)Urethral stricture; Translations: [Unspecified urethral stricture, male, unspecified site]Onset: 336529-10-5174FpmvcrvmPcrzi diseases of bladder and urethra (3 sources)Male urethral stricture; Translations: [Unspecified urethral stricture, male, unspecified site]Onset: 17-62-5059WdtxgtzrQntcz diseases of kidney and ureters (2 sources)Acquired renal cyst 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; Translations: [Cyst of kidney, acquired]Onset: 76-24-2708FfnhxodcDysfb ear and sense organ disorders (13 sources)Bilateral hearing gpwz94-55-8525JqgwfcvElgqf ear and sense organ disorders (2 sources)Impacted cerumen of bilateral ears; Translations: [Impacted cerumen, bilateral]Onset: 19-13-5252LmmcecysYufgt ear and sense organ disorders (17 sources)Excessive cerumen in ear canal ; Translations: [Impacted cerumen, bilateral]Onset: 743382-05-1074XjppratfErbvm ear and sense organ disorders (4 sources)Bilateral hearing loss; Translations: [Impacted cerumen, bilateral] Onset: 185275-91-1695OqgpkyxhXmykf injuries and conditions due to external causes (1 source)Injury of head; Translations: [Unspecified injury of head, initial encounter]Onset: 41-90-3922NbedvhllTpjco nervous system disorders (1 source)Paresthesia; Translations: [Paresthesia of skin]Onset: 06-25-2021 EpisodicOther non-traumatic joint disorders (4 sources)Pain in left ankle and joints of left foot; Translations: [PAIN IN LEFT ANKLE]Onset: 36-61-4240AyrxrghbTnrvf non-traumatic joint disorders (2 sources)Pain in right shoulder; Translations: [Acute pain of right shoulder M25.511]Onset: 02-01-2021 Resolved: 15-39-5936WycnnhxtZsfxf non-traumatic joint disorders (2 sources)Pain in left shoulder; Translations: [Pain in joint, shoulder region] 61-58-1041UmkdkkkzSxzqs nutritional; endocrine; and metabolic disorders (20 sources)Obesity; Translations: [Obesity, unspecified]Onset: 06-25-2021 ChronicOther nutritional; endocrine; and metabolic disorders (4 sources)Obese class I; Translations: [Obesity (BMI 30.0-34.9)]Onset: 900932-16-2312NwsrzmfDgrib nutritional; endocrine; and metabolic disorders (20 sources)Overweight in adulthood with body mass index of 25 or more but less than 30; Translations: [Overweight]Onset: 00-84-2385QaxhayaaAencp upper respiratory disease (2 sources)Chronic laryngitis; Translations: [Chronic laryngitis]01-31-2025 ChronicOther upper respiratory disease (2 sources)Hoarse; Translations: [Dysphonia]60-28-9052AjwukxkiIvlrsmlniblyqt care; fitting of prostheses; and adjustment of devices (4 sources)Patient encounter status; Translations: [Encounter for fitting and adjustment of other specified devices]Onset: 005555-26-5949VdpjlonPqojavxj codes; unclassified (10 sources)Amnesia; Translations: [Other amnesia]Onset: EpisodicThyroid disorders (20 sources)Hypothyroidism; Translations: [Hypothyroidism, unspecified]Onset: 31-49-5540DpoymrbZlmbdfytp cerebral ischemia (19 sources)Transient cerebral ischemia; Translations: [Transient cerebral ischemic attack, unspecified]Onset: 427478-80-6976GbjxsqcBtyaukrkhqdv (1 source)Anxiety disorder, unspecified / F41.9(ICD-9)Onset: 12-04-2016 Unclassified (1 source)Palpitations / R00.2(ICD-9)Onset: 22-84-4670Azxbrtcybqje (2 sources)Supraventricular tachycardia / I47.1(ICD-9)Onset: 12-04-2016 Unclassified (1 source)Overweight / E66.3(ICD-9)Onset: 63-84-9465Rkvgdccgxlpq (1 source)Body mass index (BMI) 31.0-31.9, adult / Z68.31(ICD-9)Onset: 23-40-1696Dpnyksjbvslt (1 source)Proc/trtmt not carried out because of contraindication / Z53.09(ICD-9) Onset: 78-67-1331Furjkthpuyyx (1 source)Unspecified contact dermatitis, unspecified cause / L25.9(ICD-9)Onset: 18-99-1869Pebdgweymmrx (1 source)Hypothyroidism, unspecified / E03.9(ICD-9)Onset: 12-04-2016 Unclassified (1 source)termite treater helper (current) use of aspirin / Z79.82(ICD-9)Onset: 12-04-2016 Unclassified (1 source)Primary osteoarthritis, right shoulder; Translations: [Primary osteoarthritis, right shoulder]Onset: 92-97-3627Zvnfmtrellap (4 sources)Left shoulder pain, unspecified hbtgawnqgq44-98-5558 Past or Other Problems Problem ClassificationProblemDateDocumented DateEpisodic/ChronicCardiac dysrhythmias (7 sources)Palpitations; Translations: [Palpitations]Onset: EpisodicInflammation; infection of eye (except that caused by tuberculosis or sexually transmitteddisease) (11 sources)Blepharitis of upper and lower eyelids of bilateral eyes; Translations: [Unspecified blepharitis right eye, upper and lower eyelids]Onset: 049072-15-1596VuqzqgtsHqtjp aftercare (4 sources)Surgical follow-up; Translations: [Encounter for follow-up examination after completed treatment for conditions other than malignant neoplasm]Onset: 626423-50-6612PmsupewoXeple connective tissue disease (4 sources)Dysfunction of posterior tibial tendon; Translations: [Posterior tibial tendinitis, unspecified leg]Onset: 857267-00-5407OdtxyzgbHjqul eye disorders (11 sources)Dry eyes; Translations: [Dry eye syndrome of bilateral lacrimal glands]Onset: 045450-12-6160EunjcrqoYddtq nervous system disorders (4 sources)Word finding difficulty ; Translations: [Other speech disturbances] 67-48-7744LucqoqzqWossp non-traumatic joint disorders (20 sources)Shoulder joint painful on movement; Translations: [Pain in unspecified shoulder]Onset: 768296-87-3012RhecpbfrSxkxiiqyrmyq (3 sources)Never smoked tobacco; Translations: [Never a smoker] Results Test NameValueInterpretationReference RangeFacilityXR Abdomen 1 Viewon [id number] Abdomen 1 ViewExam Date/Time: 01/14/2025 13:58 EDT Reason for Exam: Constipation Report IMPRESSION: NO ACUTE OR SIGNIFICANT INTRA-ABDOMINAL PROCESS IDENTIFIED, BY PLAIN RADIOGRAPHY. EXAM: XR Abdomen 1 View DATE: 01/14/2025 1:57 PM CLINICAL HISTORY: Constipation. Technologist Comments: pt reports recent hx of constipation with last bowel movement approx 3 days ago. denies changes to diet. denies recent injury/trauma. no recent hospitalizations. COMPARISON: CT angiogram 07/22/2023 and barium enema on 08/24/2017 TECHNIQUE: Two supine radiographs of the abdomen and pelvis were obtained. FINDINGS: There is a nonobstructive bowel gas pattern. Mild gas and stool are noted in the colon and rectum. There is no evidence of significant constipation, pneumoperitoneum, or other significant changes identified. Ordering Provider: Aga Oakes FINAL REPORT Dictated: 01/14/2025 2:20 pm Natan Subramanian MD Signed (Electronic Signature): 01/14/2025 2:20 pm Signed by: Natan Subramanian MD Transcribed by: ELAINE Technologist: [facility] HospitalAmbulatory Visit Summaryon 34-47-5758Iwvkgpbvob Visit SummaryAmbulatory Visit Summary SHIMA MICHELE :1940 Visit Date:01/11/2025 Ambulatory Visit Instructions Your Diagnosis Overactive bladder Asymptomatic microscopic hematuria Bilateral renal cysts Urethral stricture Your Care Team Attending Physician - Vee Allen Primary Care Physician - Aga Oakes DO This Is Your Medications List Contact prescribing physician if questions or concerns aspirin (Aspir 81) atorvastatin (atorvastatin 10 mg Tab) levothyroxine (levothyroxine 25 mcg (0.025 mg) Tab) multivitamin with minerals (Multivitamins and Minerals) omeprazole (omeprazole 20 mg Cap-DR) venlafaxine (venlafaxine 75 mg oral tablet, extended release) verapamil (verapamil 120 mg Cap-ER) Procedures Performed Urethral dilatation (03/23/2019), Injection of botulinum toxin type A into detrusor muscle of urinary bladder (08/18/2017), Injection of botulinum toxin type A into detrusor muscle of urinary bladder(10/24/2016), Cystourethroscopy with dilation of urethral stricture (07/30/2010), Cystourethroscopywith dilation of urethral stricture (03/24/2001), bilat bunionectomy, Foot, Hysterectomy, Knee replacement, right hammer toe repair, Rotator cuff, Ruptured tendon left foot s/p repair on june 09, 2009. Discharge Vitals Heart Rate (Peripheral) 72 Blood Pressure 124/68 Height 156 cm Height 61 in Weight 70.6 kg Weight 155.646 lb BMI 29.01 What to do next You Need to Schedule the Following Appointments Follow Up with NAIMA VACA, Nitin Nunez, CLAUDIA When: Comments: pt to call to schedule next round of Botox when needed Where: [address] [place] [id number] Medications What How Much When Instructions Unchanged aspirin (Aspir 81) 81 Milligram By Mouth Every day Contact prescribing physician if questions or concerns Unchanged atorvastatin (atorvastatin 10 mg Tab) 1 Tablets By Mouth Every day Contact prescribing physician if questions or concerns Unchanged levothyroxine (levothyroxine 25 mcg (0.025 mg) Tab) 1.5 Tablets By Mouth Every day Contact prescribing physician if questions or concerns Unchanged multivitamin with minerals (Multivitamins and Minerals) 1 Tablets By Mouth Every day Contact prescribing physician if questions or concerns Unchanged omeprazole (omeprazole 20 mg Cap-DR) 1 Capsules By Mouth Every day Contact prescribing physician if questions or concerns Unchanged venlafaxine (venlafaxine 75 mg oral tablet, extended release) 1 Tablets By Mouth Every day Contact prescribing physician if questions or concerns Unchanged verapamil (verapamil 120 mg Cap-ER) 1 Capsules By Mouth Every day Contact prescribing physician if questions or concerns Allergies No Known Allergies Problems Ongoing - Any problem that you are currently receiving treatment for. BMI 27.0-27.9,adult Cancer Cerumen debris on tympanic membrane of both ears Depression Esophageal reflux Hearing loss of both ears due to cerumen impaction History of urinary tract infection HTN (hypertension) Hyperlipidemia Hypothyroid Irregular heart beat Microscopic hematuria Mixed stress and urge urinary incontinence Obesity Overactive bladder Shoulder joint painful on movement SVT [Supraventricular tachycardia] Urethral stricture Patient Survey You may receive a survey via text or e-mail asking about your office visit. Please share your experience with us by completing your survey. We appreciate your feedback and thank you for choosing us for your care. Education Materials Overactive Bladder, Adult Overactive bladder is a condition in which a person has a sudden and frequent need to urinate. A person might also leak urine if he or she cannot get to the bathroom fast enough (urinary incontinence). Sometimes, symptoms can interfere with work or social activities. What are the causes? Overactive bladder is associated with poor nerve signals between your bladder and your brain. Your bladder may get the signal to empty before it is full. You may also have very sensitive muscles thatmake your bladder squeeze too soon. This condition may also be caused by other factors, such as: ??? Medical conditions: ? Urinary tract infection. ? Infection of nearby tissues. ? Prostate enlargement. ? Bladder stones, inflammation, or tumors. ? Diabetes. ? Muscle or nerve weakness, especially from these conditions: ? A spinal cord injury. ? Stroke. ? Multiple sclerosis. ? Parkinson's disease. ??? Other causes: ? Surgery on the uterus or urethra. ? Drinking too much caffeine or alcohol. ? Certain medicines, especially those that eliminate extra fluid in the body (diuretics). ? Constipation. What increases the risk? You may be at greater risk for overactive bladder if you: ??? Are an older adult. ??? Smoke. ??? Are going through menopause. ??? Hav (more content not included)...NormalFisher St. Agnes HospitalUrology Office/Clinic Noteon [id number] Office/Clinic NoteUrology Office/Clinic Note Chief Complaint f/u HPI Staff 84 year old female 1 year f/u w/PVR Previous Dx: urethral stricture S/P IO UD 2018. OAB, mixed stress and urge incontinence S/P botox 2017 & 2018. microscopic hematuria- CT urogram, cytology & cysto negative. PVR: 0mL patient voided before she came here Patient denies any dysuria or gross hematuria. Denies any flank or abdomen pain. urgency History of Present Illness Staff HPI reviewed and agree. Review of Systems PHQ Score Initial Depression Screen Score: 0 SCORE no fever, chills, malaise, myalgia. no rash/lesions. no chest pain, palpitations, or SOB. no abdominal pain, nausea, vomiting. no unilateral calf swelling, redness, pain Physical Exam Vitals & Measurements HR: 72(Peripheral) BP: 124/68 HT: 156 cm HT: 61 in WT: 70.6 kg WT: 155.646 lb BMI: 29.01 General: nontoxic, well-nourished, appears stated age Mouth: moist mucosa Lungs: normal respiratory effort Cardio: regular rate, good distal perfusion Abdomen: nondistended, no suprapubic distention or tenderness, no CVA tenderness Neurologic: Grossly normal Skin: No rashes or suspicious lesions Assessment/Plan GPC pt. 1. Overactive bladder (N32.81: Overactive bladder) Previously failed Oxybutynin (dry mouth) s/p Botox 2016, 2018 s/p cysto with Botox 09/18/[address] Singh Pt unable to provide UA today (last voided 1 hour ago) PVR today 0ml Pt here for 1 year follow up to Botox. Pt reports that she wears a panty liner only for her peace of mind during the day but rarely needs to change it. Pt does wear an overnight pad and still gets up1-2 times per night with urgency, but patient does admit to drinking a lot of diet coke all day andnight and also wine at times. Discussed limiting bladder irritants with patient and increasing water intake, she verbalizes understanding. Overall she remains very happy with results of Botox. Pt would like to call when she starts to notice Botox wearing off. At that time, she can be scheduled for repeat Botox with Dr. Singh. -Increase fluid intake, avoid bladder irritants -Continue timed voids -Pt knows to call our office when she feels Botox is starting to wear off and we can schedule her for another round Ordered: 04806 Measure Post Void residual urine and/or bladder capacity by US- non-imaging E&M of Est. Patient Moderate 30-39 Min 01829 2. Asymptomatic microscopic hematuria (R31.21: Asymptomatic microscopic hematuria) 07/08/23 cytology- negative for high grade malignancy 07/22/23 CTU - no obstructing urinary tract calculi or hydronephrosis, no enhancing urinary tract lesion, urinary bladder is within normal limits 09/18/23 cystoscopy - bladder is normal, no tumor, no stones Pt unable to provide UA today Previous negative hematuria workup. Pt denies ever seeing gross blood. Advised pt to call our office if she experiences this. -Pt knows to call our office for gross hematuria Ordered: E&M of Est. Patient Moderate 30-39 Min 70648 3. Bilateral renal cysts (N28.1: Cyst of kidney, acquired) 07/22/23 CTU - 1.8cm simple appearing R renal cyst and 1cm simple appearing L renal cyst Discussed obtaining JANET with patient, she denies need at this time. -No further monitoring required Ordered: E&M of Est. Patient Moderate 30-39 Min 08066 4. Urethral stricture (N35.919: Unspecified urethral stricture, male, unspecified site) s/p IO UD 2019 PVR today 0ml -Call for weak stream or inability to empty fully Ordered: E&M of Est. Patient Moderate 30-39 Min 88079 Follow-up With When Contact Information NAIMA VACA, Nitin P, URL [address] [id number]- Additional Instructions: pt to call to schedule next round of Botox when needed Patient Education Overactive Bladder, Adult Problem List/Past Medical History Ongoing BMI 27.0-27.9,adult Cancer Cerumen debris on tympanic membrane of both ears Depression Esophageal reflux Hearing loss of both ears due to cerumen impaction History of urinary tract infection HTN (hypertension) Hyperlipidemia Hypothyroid Irregular heart beat Microscopic hematuria Mixed stress and urge urinary incontinence Obesity Overactive bladder Shoulder joint painful on movement SVT [Supraventricular tachycardia] Urethral stricture Historical No qualifying data Procedure/Surgical History Urethral dilatation (03/23/2019), Injection of botulinum toxin type A into detrusor muscle of urinary bladder (08/18/2017), Injection of botulinum toxin type A into detrusor muscle of urinary bladder(10/24/2016), Cystourethroscopy with dilation of urethral stricture (07/30/2010), Cystourethroscopywith dilation of urethral stricture (03/24/2001), bilat bunionectomy, Foot, Hysterectomy, Knee replacement, right hammer toe repair, Rotator cuff, Ruptured tendon left foot s/p repair on june 09, 2009. Medications Aspir 81, 81 mg, Oral, Daily atorvastatin 10 mg T (more content not included)...[facility] FoundationComment on above:Result Comment: Electronically Signed By: Ena REYES, Vee Evangelista\.isa\Date and Time Signed: 01/11/25 15:31 EDTNo Panel Informationon [id number] Lana, ARRT 07/26/2024 1:43 PM L Inj/Asp: L subacromial bursa on 07/26/2024 10:15 AM Indications: pain Details: 25 G needle, ultrasound-guided Medications: 1 mL betamethasone acetate-betamethasone sodium phosphate 6 (3-3) MG/ML Consent was given by the patient.[facility] Schwartz, ARRT 07/26/2024 1:43 PM L Inj/Asp: L glenohumeral on 07/26/2024 10:15 AM Indications: pain Details: 25 G needle, ultrasound-guided Medications: 1 mL betamethasone acetate-betamethasone sodium phosphate 6 (3-3) MG/ML Consent was given by the patient. Critical access hospitalXR Shoulder - left 2 Viewson [id number] Result: 4 views left shoulder, Grashey/Zanca/outlet/axillary, taken today and saved to the permanent medical record are reviewed. 2 metallic anchors in greater tuberosity. Moderate GH arthritis. Slight superior migration of humeral head. Evidence of distal clavicle excision. No acute osseous abnormalities. Visualized lung dunn are clear. Critical access hospitalRadiology Study observation (narrative)[facility] - PTon [id number] Note - PTNonvisit Note - PT Attempted treatment this date however patient and her left the building this morning and ptis unavailable. Will attempt again next FridayNoMarymount HospitalBMPon [id number] gap [Moles/Vol]12 mmol/LNormal6-16 [facility] HospitalComment on above:Performed By: #### [id number] #### [facility] [address], [place] [address]Jvgneae [Mass/Vol]9.5 mg/dLNormal8.9-11.1FOhio State Harding HospitalComment on above:Performed By: #### [id number] #### [facility] [address], [place] [address]Ikbypagt [Moles/Vol]102 mmol/TVeccmx855-881DcvljhParkwood HospitalComment on above:Performed By: #### [id number] #### [facility] [address], [place] [address]XL6 [Moles/Vol]28 mmol/QJkbolp06-72NoqehxParkwood Hospital Comment on above:Performed By: #### [id number] #### [facility] [address], [place] [address]Kvgbmkgczr [Mass/Vol]0.8 mg/dLNormal0.5-1.3FOhio State Harding HospitalComment on above:Performed By: #### [id number] #### [facility] [address], [place] [address]Jihhvyq [Mass/Vol]112 mg/vREhbafw70-294SbbgauParkwood HospitalComment on above:Performed By: #### [id number] #### [facility] [address], [place] [address]Cgflgjwuu [Moles/Vol]3.6 mmol/LNormal3.5-5.3FOhio State Harding HospitalComment on above:Performed By: #### [id number] #### [facility] [address], [place] [address]Chmtuh [Moles/Vol]138 mmol/XNhmvnc899-355TcoluiParkwood HospitalComment on above:Performed By: #### [id number] #### [facility] [address], [place] [address]Uoeg nitrogen [Mass/Vol]18 mg/dLNormal5-21[facility] HospitalComment on above:Performed By: #### [id number] #### [facility] [address] [place] [address]Lydo nitrogen/Creatinine [Mass ratio]22 No EmdrjHxmt09-54QenofjParkwood HospitalComment on above:Performed By: #### [id number] #### [facility] [address] [place] [address]GGG w/ Auto Diffon [id number]/100 WBC (Bld)0.7 %Normal 0.0-2.0[facility] HospitalComment on above:Performed By: #### [id number] #### [facility] [address] [place] [address]Aworiouxh/Leukocytes Auto (Bld) [Pure # fraction]0.0 E9/LNormal 0.0-0.2FOhio State Harding HospitalComment on above:Performed By: #### [id number] #### [facility] [address] [place] [address]Smkefmzvuuh (Bld) [#/Vol]0.1 E9/LNormal0.0-0.5FOhio State Harding HospitalComment on above:Performed By: #### [id number] #### [facility] [address] [place] [address]Hyeurmolaos/100 WBC (Bld)1.0 %Normal0.0-8.0[facility] HospitalComment on above:Performed By: #### [id number] #### [facility] [address] [place] [address]Hxvijfjktkb distribution width (RBC) [Ratio]13.4 %Normal 10.9-14.2FOhio State Harding HospitalComment on above:Performed By: #### [id number] #### [facility] [address] [place] [address]Gseoknepsp (Bld) [Volume fraction]39.5 %Zdthhd44.0-46.0[facility] HospitalComment on above:Performed By: #### [id number] #### [facility] [address] [place] [address]Nxhtygofto (Bld) [Mass/Vol]13.6 g/nNOahtdt75.0-16.0[facility] HospitalComment on above:Performed By: #### [id number] #### [facility] [address] [place] [address]Snxcdtfudso (Bld) [#/Vol]1.2 E9/LNormal1.0-4.0[facility] HospitalComment on above:Performed By: #### [id number] #### [facility] [address] [place] [address]Bkoztxbkzem/100 WBC (Bld)19.0 %Nxzkbi63.0-50.0[facility] HospitalComment on above:Performed By: #### [id number] #### [facility] [address] [place] [address]XOU (RBC) [Entitic mass]32.2 kpVjqupt73.0-34.0[facility] HospitalComment on above:Performed By: #### [id number] #### [facility] [address] [place] [address]QDHG (RBC) [Mass/Vol]34.3 g/aRQsquog94.4-36.0[facility] HospitalComment on above:Performed By: #### [id number] #### [facility] [address] [place] [address]VDR (RBC) [Entitic vol]94.0 xSXgoigu30.0-100.0[facility] HospitalComment on above:Performed By: #### [id number] #### [facility] [address] [place] [address]Rxnkwicqr (Bld) [#/Vol]0.4 E9/LNormal0.2-1.0[facility] HospitalComment on above:Performed By: #### [id number] #### [facility] [address], [place] [address]Dunkvdduznq (Bld) [#/Vol]4.7 E9/LNormal2.0-7.5FOhio State Harding HospitalComment on above:Performed By: #### [id number] #### [facility] [address] [place] [address]Kjqbomfzvwi/100 WBC (Bld)72.4 %Klhkpj58.0-75.0[facility] HospitalComment on above:Performed By: #### [id number] #### [facility] [address] [place] [address]Mtvbnqnp mean volume (Bld) [Entitic vol]7.4 fLNormal6.4-10.8 [facility] HospitalComment on above:Performed By: #### [id number] #### [facility] [address] [place] [address]Lopjkjfih (Bld) [#/Vol]256.0 E9/TFshgef626.0-500.0[facility] HospitalComment on above:Performed By: #### [id number] #### [facility] [address] [place] [address]YLV (Bld) [#/Vol]4.2 E12/LLow4.3-5.9[facility] Comment on above:Performed By: #### [id number] #### [facility] [address] [place] [address]DCW corrected for nucl RBC Auto (Bld) [#/Vol]6.5 E9/LNormal 4.0-11.0[facility] HospitalComment on above:Performed By: #### [id number] #### [facility] [address] [place] [address]ZY Spine Cervical w/o Contraston [id number] Spine Cervical w/o ContrastExam Date/Time: 06/26/2024 01:13 EDT Reason for Exam: Radiculopathy Report IMPRESSION: NO ACUTE FRACTURE OR MALALIGNMENT. EXAM: CT SCAN OF THE CERVICAL SPINE HISTORY: Neck pain with radiculopathy COMPARISON: Cervical spine CT 08/15/2022 TECHNIQUE: Routine axial CT images and multiplanar reformatted images of the cervical spine were obtained. FINDINGS: No acute fracture or malalignment. Atlantodental interval is preserved. Cervical spine vertebral body heights are maintained. Multilevel degenerative disc disease, facet arthropathy, and uncovertebral hypertrophy resulting in varying degrees of osseous neuroforaminal stenosis. These findings have not significantly changed since prior examination. Straightening of the cervical lordosis. No definitive high-grade spinal canal stenosis identified by CT. No prevertebral soft tissue swelling. Lung apices are clear. Nonspecific 1.4 cm hypodense nodule of the left lobe of the thyroid gland has not significantly changed. Atherosclerotic calcification at the carotid bulbs. All CT scans at this facility use dose modulation, iterative reconstruction, and/or weight based dosing when appropriate to reduce radiation dose to as low as reasonably achievable. Ordering Provider: Urmila Bueno FINAL REPORT Dictated: 06/26/2024 8:42 am Jg Srivastava DO Signed (Electronic Signature): 06/26/2024 8:42 am Signed by: Jg Srivastava DO Transcribed by: ELAINE Technologist: Nadia [facility] Clinical Summaryon [id number] Clinical SummaryED Clinical Summary [place] [address] ED Clinical Summary Person Information Name: SHIMA MICHELE [facility] Age: 84 Years : 1940 Sex: Female Language: Iranian PCP: Aga Oakes DO Marital Status: Visit Id: Visit Reason: Neck pain; Sinus Pain/Congestion; Headache; SIMMS X 2-3DAYS, PAIN IN THE BACK OF THE NECK Speciality: Acuity: 3 Enc Type: Emergency Med Service: Emergency Arrival: 06/25/2024 20:25:53 Discharge: 06/26/2024 03:23:25 LOS: 000 06:58 Checkin: 06/25/2024 20:25:53 Checkout: 06/26/2024 03:23:25 Dispo Type: Home (Routine DC) EVENTS: Event Name Event Status Request Date/Time Start Date/Time Complete Date/Time Arrive Complete 06/25/2024 20:25:53 06/25/2024 20:25:53 06/25/2024 20:25:53 Document Home Meds Request 06/25/2024 20:25:53 Triage Complete 06/25/2024 20:25:53 06/25/2024 20:46:26 06/25/2024 20:46:26 Registration Complete 06/25/2024 22:33:37 06/25/2024 22:33:37 06/25/2024 22:33:37 Reg Complete Request 06/25/2024 22:33:37 Reg Bed Request Complete 06/25/2024 22:33:37 06/25/2024 22:33:37 06/25/2024 22:33:37 Pending Labs Complete 06/25/2024 23:15:05 06/26/2024 00:01:05 Lab Complete 06/25/2024 23:15:05 06/26/2024 00:01:05 Swab Complete 06/25/2024 23:15:05 06/26/2024 00:01:05 Bed Assign Complete 06/25/2024 23:16:19 06/25/2024 23:16:19 06/25/2024 23:16:19 Dr Exam Complete 06/25/2024 23:16:19 06/25/2024 23:17:59 06/25/2024 23:17:59 RN Exam Complete 06/25/2024 23:16:19 06/26/2024 03:01:49 06/26/2024 03:01:49 Registration Request 06/25/2024 23:17:59 EKG Complete 06/26/2024 00:24:13 06/26/2024 00:50:04 Pending Labs Complete 06/26/2024 00:24:13 06/26/2024 02:56:12 Lab Complete 06/26/2024 00:24:13 06/26/2024 01:05:28 Patient Care Request 06/26/2024 00:24:13 RT Request 06/26/2024 00:24:13 X-Ray Complete 06/26/2024 00:24:13 06/26/2024 00:54:23 06/26/2024 01:12:17 CT Complete 06/26/2024 00:24:13 06/26/2024 00:54:21 06/26/2024 01:13:57 Meds Admin Complete 06/26/2024 00:35:03 06/26/2024 01:26:41 Pending Labs Complete 06/26/2024 00:43:31 06/26/2024 00:43:31 06/26/2024 01:05:28 Lab Complete 06/26/2024 00:43:31 06/26/2024 00:43:31 06/26/2024 01:05:28 Wet Read Request 06/26/2024 01:12:17 Pending Labs Complete 06/26/2024 02:01:49 06/26/2024 02:01:49 06/26/2024 02:01:49 Discharge Complete 06/26/2024 03:07:03 06/26/2024 03:23:28 06/26/2024 03:23:28 Transfer Complete 06/26/2024 03:23:28 06/26/2024 03:23:28 06/26/2024 03:23:28 ADDRESS: [address] [facility] [phone] PHYS DOC NOTES: MEDICAL INFORMATION: Prescriptions Given: New Medications [facility] [address], [address] [place], [place] [id number], [phone] methocarbamol (Robaxin 500 mg Tab) 1 Tablets By Mouth 3 times a day for 3 Days. Refills: 0. Medications to Continue with No Changes Other Medications aspirin (Aspir 81) 81 Milligram By Mouth every day. atorvastatin (atorvastatin 10 mg Tab) 1 Tablets By Mouth every day. levothyroxine (levothyroxine 25 mcg (0.025 mg) Tab) 1.5 Tablets By Mouth every day. multivitamin with minerals (Multivitamins and Minerals) 1 Tablets By Mouth every day. omeprazole (omeprazole 20 mg Cap-DR) 1 Capsules By Mouth every day. venlafaxine (venlafaxine 75 mg oral tablet, extended release) 1 Tablets By Mouth every day. verapamil (verapamil 120 mg Cap-ER) 1 Capsules By Mouth every day. PATIENT EDUCATION INFORMATION: Instructions: Neck Exercises; Musculoskeletal Pain; How to Take Your Blood Pressure, Cwco-ml-Glgh Follow up: With: Address: When: Aga Ruggierokarina Garibay, Camille C, [address] [place] [address] [facility] (1) In 3 days 06/29/2024 Comments: You can use the Robaxin every 8 hours as needed for muscle spasm. You can use Tylenol, ibuprofen every 6 hours as needed for pain. Keep a log of your blood pressure and follow-up with your primary care doctor. Please return to the ED for any new or worsening symptoms or if you have any concerns. DIAGNOSIS: Elevated blood pressure reading; Neck painNormalFormerly [facility] Hospitaler [facility] Patient Summaryon [id number] Patient SummaryED Patient Summary [address] [address] Patient Discharge Instructions Person Information Name: SHIMA MICHELE Age: 84 Years Arrival Date: 06/25/2024 20:25:53 Discharge Diagnosis: Elevated blood pressure reading; Neck pain Primary Care Physician: Aga Oakes DO Provider Information Primary Provider: Urmila Bueno DO Advanced Mine Shifter:None The exam and treatment you received in the Emergency Department were for an urgent problem and are not intended as complete care. It is important that you follow up with a doctor, nurse practitioner,or physician???s exceptional children teacher assistant for ongoing care. If your symptoms become worse or you do not improve asexpected and you are unable to reach your usual health care provider, you should return to the Emergency Department. We are available 24 hours a day. SHIMA MICHELE has been given the following list of patient education materials, prescriptions and follow-up instructions: Follow-up Instructions: With: Address: When: Aga Ruggierokarina Garibay, Camille C, [facility] [address] [place] [address] [facility] (1) In 3 days 06/29/2024 Comments: You can use the Robaxin every 8 hours as needed for muscle spasm. You can use Tylenol, ibuprofen every 6 hours as needed for pain. Keep a log of your blood pressure and follow-up with your primary care doctor. Please return to the ED for any new or worsening symptoms or if you have any concerns. In the event that this physician does not participate in your insurance network, please consult with your insurance company to find a nearby participating provider. Patient Education Materials: Neck Exercises; Musculoskeletal Pain; How to Take Your Blood Pressure, Cmvt-or-Dsjd A MESSAGE TO ALL PATIENTS REGARDING OPIOIDS PRESCRIPTION OPIOIDS: WHAT YOU NEED TO KNOW Prescription opioids can be used to help relieve apiixmck-xg-nypnna pain and are often prescribed following a surgery or injury, or for certain health conditions. These medications can be an important part of the treatment but also come with serious risks. It is important to work with your healthcare provider to make sure you are getting the safest, most effective care. WHAT ARE THE RISKS AND SIDE EFFECTS OF OPIOID USE? Prescription opioids carry serious risks of addiction and overdose, especially with prolonged use. An opioid overdose, often marked by slowed breathing, can cause sudden . The use of prescription opioids can have a number of side effects as well, even when taken as directed: ??? Tolerance???meaning you might need to take more of the medication for the same pain relief ??? Physical dependence???meaning you have symptoms of withdrawal when a medication is stopped ??? Increased sensitivity to pain ??? Constipation ??? Nausea, vomiting, and dry mouth ??? Sleepiness and dizziness ??? Confusion ??? Depression ??? Low levels of testosterone that can result in lower sex drive, energy, and strength ??? Itching and sweating RISKS ARE GREATER WITH: ??? History of drug misuse, substance use disorder, or overdose ??? Mental health conditions (such as depression or anxiety) ??? Sleep apnea ??? Older age (65 years and older) ??? Avoid alcohol while taking prescription opioids. Also, unless specifically advised by your health care provider, medications to avoid include: ??? Benzodiazepines (such as Xanax or Valium) ??? Muscle relaxants (such as Soma or Flexeril) ??? Hypnotics (such as Ambien or Lunesta) ??? Other prescription opioids KNOW YOUR OPTIONS Talk to your health care provider about ways to manage your pain that don???t involve prescription opioids. Some of these options may actually work better and have fewer risks and side effects. Options may include: ??? Pain relievers such as acetaminophen, ibuprofen, and naproxen ??? Some medication that are also used for depression or seizures ??? Physical therapy and exercise ??? Cognitive behavioral therapy, a psychological, goal-directed approach, in which patients learn how to modify physical, behavioral, and emotional triggers of pain and stress. IF YOU ARE PRESCRIBED OPIOIDS FOR PAIN: ??? Never take opioids in greater amounts or more often than prescribed. ??? Follow up with your primary health care provider. o Work together to create a plan on how to manage your pain. o Talk about ways to help manage your pain that don???t involve prescription opioids. o Talk about any and all concerns and side effects. ??? Help prevent misuse and abuse o Never sell or share prescription opioids. o Never use another person???s prescription opioids. ??? Store prescription opioids in a secure place and out of reach of others (this may include visitors, children, friends, and family). ??? Safely dispose of unused prescription opioids: Find your comm (more content not included)...NormalParkwood HospitalInfluenza A&B Agon 06-26-2024 Influenzae A AgNegativeNormalNegativeParkwood HospitalComment on above:Performed By: #### [id number] #### [facility] [address], [place] [address]Ipljglzgvz B AgNegativeNormalNegativeParkwood HospitalComment on above:Result Comment: Test sensitivity and specificity vary for age group, specimen type, antigen types, and prevalence of disease. Test results must be evaluated in conjunction with other clinical data available to the physician. Individuals who received nasally administered Influenza A vaccine may havepositive test results up to 3 days after vaccination.Performed By: #### [id number] #### [facility] [address], [place] [address]Rkhgbzvqpgb 87-45-8866Awecpvygx [Mass/Vol]2.0 mg/dLNormal 1.3-2.4Fisher Botetourt Medical CenterComment on above:Performed By: #### [id number] #### [facility] [address], [place] [address]GS & PTTon 41-18-9946hPWR Coag (PPP) [Time]32.4 second(s)Normal 25.1-36.5FOhio State Harding HospitalComment on above:Result Comment: Parameter 15 days - 4 weeks 1 - 5 months 6 - 11 months 1 - 5 years 6 - 10 years 11 - 17 years PTT Mean: 35.4 (27.6-45.6) Mean: 33.5 (24.8-40.7) Mean: 32.4 (25.1-40.7) Mean: 31.6 (24.0-39.2) Mean: 31.6 (26.9-38.7) Mean: 31.0 (24.6-38.4) Pediatric Reference ranges were obtained from a study by Tyrese Sanches et al. prepared from 1437 samples obtained at 7 different centers using the same coagulation reagent and instrumentation as [facility]. Currently there are no coagulation studies available worldwide for children to 14 days, andno normal ranges. Heparin therapeutic range (represented by Anti-Factor Xa activity of 0.2 - 0.4 U/mL) corresponds to PTT of 56.6 - 109.0 sec.Performed By: #### [id number] #### [facility] [address], [place] [address]XLK Coag (PPP) [Relative time]1.07 {INR}Invalid Interpretation CodeParkwood HospitalComment on above:Result Comment: INR results are specifically intended to assess patients stabilized on long-term Anticoagulation therapy suggested INR???s ???Less Intensive Anticoagulation??? 2.0 ??? 3.0 Conventional Range 3.0 ??? 4.5Performed By: #### [id number] #### [facility] [address], [place] [address]WD Coag (PPP) [Time]12.0 second(s)Normal9.4-12.5FOhio State Harding HospitalComment on above:Result Comment: 15 days - 4 weeks 1 - 5 months 6 -11 months 1 ??? 5 years 6 ??? 10 years 11 -17 years Mean: 11.2 (9.5 ??? 12.6) Mean: 11.0 (9.7 ??? 12.8) Mean: 11.0 (9.8 ??? 13.0) Mean: 11.3 (9.9 ??? 13.4) Mean: 11.7 (10.0 ??? 14.6) Mean: 11.8 (10.0 - 14.1) Pediatric Reference ranges were obtained from a study by tano Mcclure al. prepared from 1437 samples obtained at 7 different centers using the same coagulation reagent and instrumentation as [facility]. Currently there are no coagulation studies available worldwide for children to 14 days, andno normal ranges.Performed By: #### [id number] #### [facility] [address], [place] [address]Vrnsl COVID Antigen ([facility])on 48-84-0630Rfmfg COV Int NEG Ctl PassNoMarymount HospitalComment on above:Performed By: #### [id number] #### [facility] [address], [place] [address]Ulngy COV Int POS CtlPassNoMarymount Hospital Comment on above:Performed By: #### [id number] #### [facility] [address], [place] [address]VPOY-UsW+SARS-CoV-2 (COVID-19) Ag IA.rapid Ql (Resp)Not detectedNormalNot TriHealthComment on above:Result Comment: The BD Veritor??? System for Rapid Detection of SARS-CoV-2 is a chromatographic digital immunoassay intended for the direct and qualitative detection of SARS-CoV-2 nucleocapsid antigens in nasal swabs from individuals who are suspected of COVID-19 by their healthcare provider withinthe first five days of the onset of symptoms. Negative results should be treated as presumptive, do not rule out SARS-CoV-2 infection and should not be used as the sole basis for treatment or patient management decisions, including infection control decisions. Negative results should be considered in the context of a patient???s recent exposures, history and the presence of clinical signs and symptoms consistent with COVID-19, and confirmed with a molecular assay, if necessary, for patient management. For in vitro diagnostic use. In the [place], only for use under an Emergency Use Authorization. In the [place], this test has not been FDA cleared or approved; this test has been authorized by FDA under an EUA for use by authorized laboratories; use by laboratories certified under the CLIA, 42 U.S.C. ???263a, that meet requirements to perform moderate, high, or waived complexity tests and at the Point of Care (POC), i.e., in patient care settings operating under a CLIA Certificate of Waiver, Certificate of Compliance, or Certificate of Accreditation. This test has been authorized only for the detection of proteins from SARS-CoV-2, not for any otherviruses or pathogens; and, in the [place], this test is only authorized for the duration of the declaration that circumstances exist justifying the authorization of emergency use of in vitro diagnostics for detection and/or diagnosis of the virus that causes COVID-19 under Section 564(b)(1) of the Act,21 U.S.C. ??? 360bbb-3(b)(1), unless the authorization is terminated or revoked sooner.Performed By: #### [id number] #### [facility] [address], [place] [address]Oozlaqxs 0 Hr.on 39-12-7076Zahldnjp HS8.50 pg/mLLow10.10-27.10 Parkwood HospitalComment on above:Result Comment: The 95% CI (Confidence Interval) PPV (Positive Predictive Value) for myocardial infarction in females is 38 pg/mL, in males 51 pg/mL. The results should be used in conjunction with clinical conditions of myocardial infarction. (Access High Sensitivity Troponin I Instructions For Use, [place], November 2017)Performed By: #### [id number] #### [facility] [address], [place] [address]Gbovfkia 1 Hr.on 13-56-9413Bhcctwyi HS8.70 pg/mLLow10.10-27.10 Parkwood HospitalComment on above:Result Comment: The 95% CI (Confidence Interval) PPV (Positive Predictive Value) for myocardial infarction in females is 38 pg/mL, in males 51 pg/mL. The results should be used in conjunction with clinical conditions of myocardial infarction. (Access High Sensitivity Troponin I Instructions For Use, [place], November 2017)Performed By: #### [id number] #### [facility] [address], [place] [address]NA Chest Single Viewon [id number] Chest Single ViewExam Date/Time: 06/26/2024 01:12 EDT Reason for Exam: Difficulty breathing Report IMPRESSION: NO RADIOGRAPHIC EVIDENCE OF ACUTE INTRATHORACIC PROCESS. EXAM: XR Chest Single View History: Difficulty breathing. Technique: Portable AP view of the chest. Comparison: 07/22/2023 Findings: The cardiomediastinal silhouette is within normal limits. No pneumothorax, pleural effusion, or consolidation. Bilateral lung base scarring again identified. No acute osseous abnormality. Ordering Provider: Urmila Bueno FINAL REPORT Dictated: 06/26/2024 8:39 am Jg Srivastava DO Signed (Electronic Signature): 06/26/2024 8:39 am Signed by: Jg Srivastava DO Transcribed by: ELAINE Technologist: [facility] IslandyanethParkwood HospitaleGFRon 79-68-3031dUSC34 mL/min/1.73 m6Qavzfh>=59Parkwood HospitalComment on above:Performed By: #### [id number] #### [facility] [address], [place] [address]Ayexvfly Note - PTon 96-29-9332Jdocggix Note - PTNonvisit Note - PT Patient requests to cancel due to no sleeping well and tired today. Pt more than agreeable to cont PT next week.NormalParkwood HospitalAmbulatory Visit Summaryon [id number] Visit SummaryAmbulatory Visit Summary SHIMA MICHELE :1940 Visit Date:12/15/2023 Ambulatory Visit Instructions Your Diagnosis Overactive bladder Your Care Team Attending Physician - Vee Allen Primary Care Physician - Aga Oakes DO This Is Your Medications List aspirin (Aspir 81) atorvastatin (atorvastatin 10 mg Tab) levothyroxine (levothyroxine 25 mcg (0.025 mg) Tab) multivitamin with minerals (Multivitamins and Minerals) omeprazole (omeprazole 20 mg Cap-DR) venlafaxine (venlafaxine 75 mg oral tablet, extended release) verapamil (verapamil 120 mg Cap-ER) Procedures Performed Urethral dilatation (03/23/2019), Injection of botulinum toxin type A into detrusor muscle of urinary bladder (08/18/2017), Injection of botulinum toxin type A into detrusor muscle of urinary bladder(10/24/2016), Cystourethroscopy with dilation of urethral stricture (07/30/2010), Cystourethroscopywith dilation of urethral stricture (03/24/2001), bilat bunionectomy, Foot, Hysterectomy, Knee replacement, right hammer toe repair, Rotator cuff, Ruptured tendon left foot s/p repair on june 09, 2009. Discharge Vitals Height 156 cm Height 61 in Weight 81 kg Weight 178.2 lb BMI 33.28 Medications What How Much When Instructions Unchanged aspirin (Aspir 81) 81 Milligram By Mouth Every day Unchanged atorvastatin (atorvastatin 10 mg Tab) 1 Tablets By Mouth Every day Unchanged levothyroxine (levothyroxine 25 mcg (0.025 mg) Tab) 1.5 Tablets By Mouth Every day Unchanged multivitamin with minerals (Multivitamins and Minerals) 1 Tablets By Mouth Every day Unchanged omeprazole (omeprazole 20 mg Cap-DR) 1 Capsules By Mouth Every day Unchanged venlafaxine (venlafaxine 75 mg oral tablet, extended release) 1 Tablets By Mouth Every day Unchanged verapamil (verapamil 120 mg Cap-ER) 1 Capsules By Mouth Every day Allergies No Known Allergies Problems Ongoing - Any problem that you are currently receiving treatment for. BMI 27.0-27.9,adult Cancer Cerumen debris on tympanic membrane of both ears Depression Esophageal reflux Hearing loss of both ears due to cerumen impaction History of urinary tract infection HTN (hypertension) Hyperlipidemia Hypothyroid Irregular heart beat Microscopic hematuria Mixed stress and urge urinary incontinence Obesity Overactive bladder Shoulder joint painful on movement SVT [Supraventricular tachycardia] Urethral stricture Patient Survey You may receive a survey via text or e-mail asking about your office visit. Please share your experience with us by completing your survey. We appreciate your feedback and thank you for choosing us for your care. JaylaParkwood HospitalUrology Office/Clinic Noteon [id number] Office/Clinic NoteUrology Office/Clinic Note Chief Complaint follow up HPI Staff 83 year old female patient presents today for a 3 month follow up from Cysto- Botox 09/18/23. Previous Dx: urethral stricture S/P IO UD 2018. OAB, mixed stress and urge incontinence S/P botox 2017 & 2018. microscopic hematuria- CT urogram, cytology & cysto negative. Oxybutynin 10mg DC at last visit due to dry mouth, dizziness and memory problems. Patient denies any dysuria or gross hematuria, states that during the day her urgency and incontinence has improved since botox. States during the night she is having mild urgency however thinks thismay be due to fluid intake. Denies any abdominal/flank pain. History of Present Illness Staff HPI reviewed and agree. Review of Systems PHQ Score Initial Depression Screen Score: 0 SCORE no fever, chills, malaise, myalgia. no rash/lesions. no chest pain, palpitations, or SOB. no abdominal pain, nausea, vomiting. no unilateral calf swelling, redness, pain Physical Exam Vitals & Measurements HT: 61 in HT: 156 cm WT: 81 kg WT: 178.2 lb BMI: 33.28 General: nontoxic, well-nourished, appears stated age Mouth: moist mucosa Lungs: normal respiratory effort Cardio: regular rate, good distal perfusion Abdomen: nondistended, no suprapubic distention or tenderness, no CVA tenderness Neurologic: Grossly normal Skin: No rashes or suspicious lesions Assessment/Plan GPC/KIMBERLY pt 1. Overactive bladder (N32.81: Overactive bladder) s/p Botox 2016, 2018 s/p cysto with Botox 09/18/[address] Singh UA today moderate blood only PVR today 22ml Pt here for follow up to Botox. Pt was struggling with both stress and urge incontinence, wearing 3-4 pads daily. Pt previously failed Oxybutynin 10mg BID due to dry mouth, dizzinss and memory problems. Pt completed Botox on 09/18/23 and reports her symptoms are much better during the day and mostlybetter at night. Pt reports that she wears a panty liner only for her peace of mind during the day but rarely needs to change it. Pt does wear an overnight pad and still gets up 1-2 times per night with urgency, but patient does admit to drinking a lot of diet coke all day and night and also wine at times. Discussed limiting bladder irritants with patient and increasing water intake, she verbalizes understanding. Overall she is very happy with results of Botox. -Increase fluid intake, avoid bladder irritants -Continue timed voids -Pt knows to call our office if she feels Botox is starting to wear off and we can schedule her foranother round -F/U 1 year or sooner if needed Ordered: 40198 Measure Post Void residual urine and/or bladder capacity by US- non-imaging E&M of Est. Patient Moderate 30-39 Min 05388 Urnls Dip Stick Auto w/o Microscopy POC 56814 2. Asymptomatic microscopic hematuria (R31.21: Asymptomatic microscopic hematuria) 07/08/23 cytology- negative for high grade malignancy 07/22/23 CTU - no obstructing urinary tract calculi or hydronephrosis, no enhancing urinary tract lesion, urinary bladder is within normal limits 09/18/23 cystoscopy - bladder is normal, no tumor, no stones UA today moderate blood only Negative hematuria workup. Pt denies ever seeing gross blood. Advised pt to call our office if she experiences this. Did discuss possible etiology of vaginal atrophy causing microhem with patient, she reports dryness. Does not wish to begin estrogen cream at this time. -Pt knows to call our office for gross hematuria Ordered: E&M of Est. Patient Moderate 30-39 Min 00224 3. Bilateral renal cysts (N28.1: Cyst of kidney, acquired) 07/22/23 CTU - 1.8cm simple appearing R renal cyst and 1cm simple appearing L renal cyst -Consider f/u JANET in 1 year based on size Ordered: E&M of Est. Patient Moderate 30-39 Min 62791 4. Urethral stricture (N35.919: Unspecified urethral stricture, male, unspecified site) s/p IO UD 2019 PVR today 22ml -Call for weak stream or inability to empty fully Ordered: E&M of Est. Patient Moderate 30-39 Min 98254 Follow-up With When Contact Information Vee Allen, URL Within 1 year Additional Instructions: w/ PVR Patient Education Overactive Bladder, Adult Problem List/Past Medical History Ongoing BMI 27.0-27.9,adult Cancer Cerumen debris on tympanic membrane of both ears Depression Esophageal reflux Hearing loss of both ears due to cerumen impaction History of urinary tract infection HTN (hypertension) Hyperlipidemia Hypothyroid Irregular heart beat Microscopic hematuria Mixed stress and urge urinary incontinence Obesity Overactive bladder Shoulder joint painful on movement SVT [Supraventricular tachycardia] Urethral stricture Historical No qualifying data Procedure/Surgical History Urethral dilatation (03/23/2019), Injection of botulinum toxin type A into detrusor muscle of urinary bladder (08/18/2017), Injection of botulinum toxin type A into detrusor muscle of urinary bladder(more content not included)... [facility] FoundationComment on above:Result Comment: Electronically Signed By: Vee Allen\.br\Date and Time Signed: 12/15/23 09:55 EDT Methylmalonic Acidon 33-31-0518Lppgevthujwkuj [Moles/Vol]411 nmol/LHigh0-378 [facility] HospitalComment on above:Result Comment: This test was developed and its performance characteristics determined by [facility]. It has not been cleared or approved by the Food and Drug Administration. Performed at: [address] [id number] MD Pio FreitasiPerformed By: #### [id number] #### [facility] [address] [place] [address]IHJJFVZORQqadfep By: SYSTEM SYSTEM on 13-68-3357Liptwgfhc (Vitamin B12) [Mass/Vol]249 pg/bVGxyshz25 - 1500 pg/mLRemisol ChemFolate [Mass/Vol]6.5 ng/mLLow>=6.7ng/mLRemisol ChemTSH Qn3.96 m[IU]/LNormal0.34 - 5.60 mcIU/mLRemisol ChemFolateon 63-79-9466Gcugdo [Mass/Vol]6.5 ng/mLLow>=6.7FOhio State Harding HospitalComment on above:Performed By: #### [id number] #### [facility] [address], [place] [address]UZRph 39-41-6353SWS Qn3.96 m[IU]/LNormal0.34-5.60[facility] HospitalComment on above:Performed By: #### [id number] #### [facility] [address], [place] [address]Htz B12on 77-80-3990Ymvyrarnq (Vitamin B12) [Mass/Vol]249 pg/mL Dmrhry23-1162PvseahParkwood HospitalComment on above:Performed By: #### [id number] #### [facility] [address], [place] [address]SLGDCQBPVDicgxew By: SYSTEM SYSTEM on 67-28-2617Ttnkl gap [Moles/Vol]12 mmol/LNormal6 - 16 mEq/LRemisol ChemCalcium [Mass/Vol]9.0 mg/dL Normal8.9 - 11.1 mg/dLRemisol ChemChloride [Moles/Vol]103 mmol/EYxxopz674 - 111 mmol/LRemisol ChemCO2 [Moles/Vol]27 mmol/ZXagoyr25 - 31 mmol/LRemisol Chem Creatinine [Mass/Vol]1.2 mg/dLNormal0.5 - 1.3 mg/dLRemisol OtmhaSJX91 mL/min/1.73 m2Low>=59mL/min/1.73 t1Ttptcar ChemGlucose [Mass/Vol]92 mg/dLNormal 55 - 199 mg/dLRemisol ChemPotassium [Moles/Vol]3.4 mmol/LLow3.5 - 5.3 mmol/L Remisol ChemSodium [Moles/Vol]139 mmol/FRhxysl024 - 145 mmol/LRemisol ChemUrea nitrogen [Mass/Vol]23 mg/dLHigh5 - 21 mg/dLRemisol ChemUrea nitrogen/Creatinine [Mass ratio]19 mg/ekAhimma65 - 20Remisol ChemHEMATOLOGYOrdered By: SYSTEM SYSTEM on 02-63-7256Kvnttvhfd/100 WBC (Bld)0.7 %Normal0.0 - 2.0 %Remisol Heme Basophils/Leukocytes Auto (Bld) [Pure # fraction]0.0 E9/LNormal0.0 - 0.2 E9/L Remisol HemeEosinophils (Bld) [#/Vol]0.1 E9/LNormal0.0 - 0.5 E9/LRemisol Heme Eosinophils/100 WBC (Bld)1.6 %Normal0.0 - 8.0 %Remisol HemeErythrocyte distribution width (RBC) [Ratio]13.2 %Sgybzi55.9 - 14.2 %Remisol HemeHematocrit (Bld) [Volume fraction]36.0 %Vbzbbr23.0 - 46.0 %Remisol HemeHemoglobin (Bld) [Mass/Vol]12.2 g/uTOleymf20.0 - 16.0 gm/dLRemisol HemeLymphocytes (Bld) [#/Vol] 1.6 E9/LNormal1.0 - 4.0 E9/LRemisol HemeLymphocytes/100 WBC (Bld)31.3 %Normal 14.0 - 50.0 %Remisol HemeMCH (RBC) [Entitic mass]31.6 xaHriayq28.0 - 34.0 pg Remisol HemeMCHC (RBC) [Mass/Vol]33.9 g/qEOdlskr01.4 - 36.0 gm/dLRemisol HemeMCV (RBC) [Entitic vol]93.4 uCPgvcmu62.0 - 100.0 fLRemisol HemeMonocytes (Bld) [#/Vol]0.4 E9/LNormal0.2 - 1.0 E9/LRemisol HemeMonocytes/100 WBC (Bld)8.3 % Normal4.0 - 14.0 %Remisol HemeNeutrophils (Bld) [#/Vol]3.0 E9/LNormal2.0 - 7.5 E9/LRemisol HemeNeutrophils/100 WBC (Bld)58.1 %Okbecn19.0 - 75.0 %Remisol Heme Platelet mean volume (Bld) [Entitic vol]7.6 fLNormal6.4 - 10.8 fLRemisol Heme Platelets (Bld) [#/Vol]258.0 E9/RZzfyuy910.0 - 500.0 E9/LRemisol HemeRBC (Bld) [#/Vol]3.9 E12/LLow4.3 - 5.9 E12/LRemisol HemeWBC corrected for nucl RBC Auto (Bld) [#/Vol]5.2 E9/LNormal4.0 - 11.0 E9/LRemisol HemeXR CHEST 2 VIEWSon 07-22-2023 Exam Date/Time: 07/22/2023 15:12 EDT Reason for Exam: [id number] Encounter for other preprocedural examination Report IMPRESSION: NO RADIOGRAPHIC EVIDENCE OF ACTIVE DISEASE IN THE CHEST. CLINICAL INFORMATION: Z01.818 Encounter for other preprocedural examination COMPARISON: None available. FINDINGS: Two views of the chest were obtained. Heart and mediastinum appear normal. The lungs appear clear. Visualized bony thorax and remainder of the chest appears unremarkable. Ordering Provider: Eddie Sidhu FINAL REPORT Dictated: 07/22/2023 5:30 pm Zac Looney MD Signed (Electronic Signature): 07/22/2023 5:30 pm Signed by: Zac Looney MD Transcribed by: ELAINE Technologist: LINSEY Technical Comments Radiation Dose: Ka,r in mGy = na DAP = naFTMCRadiology, Radiologist, - 07/22/2023 Exam Date/Time: 07/22/2023 15:12 EDT Reason for Exam: Z01.818 Encounter for other preprocedural examination Report IMPRESSION: NO RADIOGRAPHIC EVIDENCE OF ACTIVE DISEASE IN THE CHEST. CLINICAL INFORMATION: Z01.818 Encounter for other preprocedural examination COMPARISON: None available. FINDINGS: Two views of the chest were obtained. Heart and mediastinum appear normal. The lungs appear clear. Visualized bony thorax and remainder of the chest appears unremarkable. Ordering Provider: Eddie Sidhu FINAL REPORT Dictated: 07/22/2023 5:30 pm Zac Looney MD Signed (Electronic Signature): 07/22/2023 5:30 pm Signed by: Zac Looney MD Transcribed by: ELAINE Technologist: LINSEY Technical Comments Radiation Dose: Ka,r in mGy = na DAP = na [facility] HealthcareRadiology Study observation (narrative)[facility]OM[facility] HealthcareXR CHEST 2 VIEWSOrdered By: Radiologist Radiology on 66-52-3443[employer] Work Phone: Office Visit (Cardiology)on 34-78-3440Llnaqm-up visit Diagnoses/Problems Assessed Benign essential hypertension (401.1) (I10) Hyperlipidemia (272.4) (E78.5) Paroxysmal supraventricular tachycardia (427.0) (I47.1) Palpitations (785.1) (R00.2) Overweight with body mass index (BMI) of 29 to 29.9 in adult (278.02,V85.25) (E66.3,Z68.29) Never a smoker Orders Benign essential hypertension Start: Verapamil HCl ER 120 MG Oral Tablet Extended Release; TAKE 0.5 TABLET Daily Hyperlipidemia Changed: From Aspirin EC 81 MG TBEC TAKE 1 TABLET DAILY To Aspirin 81 MG Oral Tablet Delayed Release TAKE 1 TABLET DAILY Renew: Atorvastatin Calcium 10 MG Oral Tablet; TAKE 1 TABLET AT BEDTIME Overweight with body mass index (BMI) of 29 to 29.9 in adult Healthy Weight Tips; Status:Complete - Retrospective Authorization; Done: 10Sep2022 Some eating tips that can help you lose weight.; Status:Complete - Retrospective Authorization; Done: 10Sep2022 SocHx: Never a smoker Tobacco Use Screening; Status:Complete; Done: 10Sep2022 Unlinked Stop: Verapamil HCl ER 120 MG Oral Capsule Extended Release 24 Hour Patient Instructions Please bring all medicines, vitamins, and herbal supplements with you when you come to the office. Prescriptions will not be filled unless you are compliant with your follow up appointments or have a follow up appointment scheduled as per instruction of your physician. Refills should be requested at the time of your visit. Follow up in 1 year. reduce verapamil 120 mg 0.5 tablets daily. Chief Complaint SHIMA MICHELE is being seen for an annual follow-up of. History of Present Illness Patient returns in follow-up of problems as noted. She is done well. She denies any breakthroughs of supraventricular tachycardia nor palpitations and because of this we believe she is doing well. Wediscussed her hypertension and it appears to be on the low end of normal. Because of this we did anorthostatic and there is further drop hence I suggested we reduce verapamil by 50%. Management of lipids is satisfactory. I did advocate the benefits of weight loss as she understands the recommendation. Surgical History Problems History of Complete colonoscopy History of Foot surgery History of Hysterectomy History of Knee replacement Total knee replacement (left and right) History of Rotator cuff repair Current Meds Medication NameInstruction Aspirin EC 81 MG TBECTAKE 1 TABLET DAILY. Atorvastatin Calcium 10 MG Oral TabletTAKE 1 TABLET AT BEDTIME Levothyroxine Sodium 25 MCG Oral TabletTAKE 1 TABLET DAILY. Magnesium Oxide 400 MG CAPSTAKE DIRECTED. Multi Vitamin TABSTAKE 1 TABLET DAILY. PriLOSEC 20 MG CPDRTAKE 1 CAPSULE DAILY EVERY MORNING BEFORE BREAKFAST. Venlafaxine HCl - 75 MG Oral TabletTAKE 1 TABLET DAILY. Verapamil HCl ER 120 MG Oral Capsule Extended Release 24 HourTAKE 1 CAPSULE Daily Vitamin B12 TABSTAKE 1 TABLET DAILY DIRECTED. Vitamin D (Cholecalciferol) 25 MCG (1000 UT) Oral Capsule Patient did not bring medication list or bottles. Updated verbally with patient Allergies Medication No Known Drug Allergies Recorded By: Jihan Juarez; 02/08/2021 11:32:41 AM Social History Problems Alcohol use (V49.89) (Z78.9) Never a smoker No caffeine use No illicit drug use Review of Systems Constitutional: not feeling tired. Eyes: no eyesight problems. ENT: no hearing loss and no nosebleeds. Cardiovascular: no intermittent leg claudication and as noted in HPI. Respiratory: no chronic cough and no shortness of breath. Gastrointestinal: no change in bowel habits and no blood in stools. Genitourinary: no urinary frequency. Skin: no skin rashes. Neurological: no seizures and no frequent falls. Psychiatric: no depression and not suicidal. All other systems have been reviewed and are negative for complaint. Vitals Vital Signs Recorded: 10Sep2022 10:02AMRecorded: 10Sep2022 09:47AM Systolic Tnryamn784, LUE, Sitting Diastolic Trvzshz03, LUE, Sitting Systolic Nokzliga048, LUE, Standing Diastolic Aqkdkcav90, LUE, Standing Heart Rate Frkuysf61, L Radial Heart Rate Nvrvtaoj29, L Radial Heart Rate66, R Radial Uhnuzncb784, RUE, Sitting Arajxetlv39, RUE, Sitting Height5 ft 2 in Hkvyyb698 lb BMI Bcdqpprpsg22.63 kg/m2 BSA Calculated1.75 Tobacco Useb) No PHQ-2 #1. Over the last 2 weeks have you felt down, depressed or hopeless? (If yes, answer PHQ-9 below)No PHQ-2 #2. Over the last 2 weeks have you felt little interest or pleasure in doing things? (If yes,answer PHQ-9 below)No Falls Screening (Age 18+)b) One or more falls in the last year Physical Exam Constitutional: alert and in no acute distress. Eyes: no erythema, swelling or discharge from the eye . Neck: neck is supple, symmetric, trachea midline, no masses and no thyromegaly . Pulmonary: no increased work of breathing or signs of respiratory distress and lungs clear to auscultation. Cardiovascular: carotid pulses 2+ bilaterally with no bruit , JVP wa (more content not included)...NormalUH TouchworksTobacco Screening.on [id number] depression screening assessmentNoTri-State Memorial Hospital [employer] DO Work Phone: Fall risk assessmentb) One or more falls in the last yearTri[facility] [employer]Westwood[employer] DO Work Phone: Tobacco use status CPHSb) [facility] [employer] DO Work Phone: XR shoulder RT min 2V*on [id number] shoulder RT min 2V*[facility] [place] [address] [place] [address] XRay Report Signed Patient: Shima Michele MR#: [id number] : 1940 Acct:[id number] Age/Sex: 82 / F ADM Date: 07/16/22 [place] [facility] [place]: Type: [facility] Attending Dr: Avel Werner MD Copies to: Avel Werner MD Ordering Provider: Avel Werner MD Date of Service: 07/16/22 XR/XR shoulder RT min 2V*: Arthritis of right glenohumeral joint RIGHT SHOULDER - - 4 views CLINICAL HISTORY: Right shoulder pain mostly anterior radiating down right arm. COMPARISON: Right shoulder 03/21/2020 FINDINGS: Moderate degenerative changes of the right AC and glenohumeral joint with superior migration of the humeral head consistent with chronic rotator cuff pathology. Patient is status post rotator cuff repair. No acute bony process. XR/XR shoulder RT min 2V* IMPRESSION: MODERATE DEGENERATIVE CHANGES OF THE RIGHT SHOULDER WITH NARROWING OF THE SUBACROMIAL SPACE SUGGESTIVE OF CHRONIC ROTATOR CUFF PATHOLOGY GROSSLY SIMILAR TO THE PRIOR STUDY. Impression dictated by: Fuad Cintron Jr., D.OObdulio07/16/2022 2:05 PM Dictation Location: RADIO-PC-15 Transcribed By: [facility] 07/16/22 1405 Dictated By: Fuad Cintron Jr, DO 07/16/22 1404 Signed By: 07/16/22 1405NoCherrington HospitalXR shoulder RT min 2V* [facility] [employer] Other XR shoulder RT min 2V*[facility] [employer] Other XR shoulder RT min 2V*[address] [place] [address] [employer] Other XR shoulder RT min 2V*[place] [address]Rcv[place] [employer] Other XR shoulder RT min 2V*[place]Ray ReportNew [place] [employer] Other xr shoulder RT min 2V*[facility] [employer] Other xr shoulder RT min 2V*Patient: Shima Michele MR#: [id number] [employer] Other xr shoulder RT min 2V*: 1940 Acct:[id number] [place] [employer] Other xr shoulder RT min 2V*Age/Sex: 82 / F ADM Date: 07/16/22[place] [employer] Other xr shoulder RT min 2V*[place] [facility] [place]: Type: [facility] [employer] Other xr shoulder RT min 2V*Attending Dr: Avel Werner MD [facility] Other xr shoulder RT min 2V*Copies to: Avel Werner MD [facility] Other XR shoulder RT min 2V*Ordering Provider: Avel Werner MDNew Britain [employer] Other xr shoulder RT min 2V*Date of Service: 07/16/22[place] [employer] Other XR shoulder RT min 2V* XR/XR shoulder RT min 2V*: Arthritis of right glenohumeral jointNew Britain [employer] Other XR shoulder RT min 2V*RIGHT SHOULDER - - 4 viewsN[facility]olden [facility] [employer] Other XR shoulder RT min 2V*CLINICAL HISTORY: Right shoulder pain mostly anterior radiating down right arm.[facility] [facility] Other XR shoulder RT min 2V*COMPARISON: Right shoulder 03/21/2020[facility] Other xr shoulder RT min 2V*FINDINGS:[facility] [facility] Other XR shoulder RT min 2V*Moderate degenerative changes of the right AC and glenohumeral joint with superior migration of [facility] [employer] Other xr shoulder RT min 2V*humeral head consistent with chronic rotator cuff pathology. Patient is status post rotator cuffNogolden valley memorial hospital [employer] Other xr shoulder RT min 2V*repair. No acute bony process. [facility] Other xr shoulder RT min 2V* XR/XR shoulder RT min 2V*[facility] Other xr shoulder RT min 2V*IMPRESSION:[facility] [facility] Other xr shoulder RT min 2V*MODERATE DEGENERATIVE CHANGES OF THE RIGHT SHOULDER WITH NARROWING OF THE SUBACROMIAL SPACEOwingo Other xr shoulder RT min 2V*SUGGESTIVE OF CHRONIC ROTATOR CUFF PATHOLOGY GROSSLY SIMILAR TO THE PRIOR STUDY.[facility] [facility] Other xr shoulder RT min 2V*Impression dictated by: Fuad Cintron Jr., Alisha07/16/2022 2:05 PMNCanton-Potsdam Hospital [employer] Other XR shoulder RT min 2V*Dictation Location: [facility] [employer] Other xr shoulder RT min 2V*Transcribed By: PWS 07/16/[address] [place] [address] [employer] Other xr shoulder RT min 2V*Dictated By: Fuad Cintron Jr, DO 07/16/[address] [place] [address] [employer] Other xr shoulder RT min 2V*Signed By:[facility] [facility] Other xr shoulder RT min 2V*07/16/22 [facility] HospitalImp[facility] [employer] Other Tobacco Screening.on [id number] depression screening assessmentNoTri-[facility] [employer] DO Work Phone: Fall risk assessmenta) No falls within the last year [facility] [employer] DO Work Phone: Tobacco use status CPHSb) NoMPeacehealth [facility] Center [employer] 600 DO Work Phone: CHEMISTRYOrdered By: SYSTEM SYSTEM on 09-15-9606Pvljw gap [Moles/Vol]9 mmol/LNormal6 - 16 mEq/LFTMC RemisolCalcium [Mass/Vol]8.9 mg/dL Normal8.9 - 11.1 mg/dLFTMC RemisolChloride [Moles/Vol]105 mmol/UMknwkp399 - 111 mmol/LFTMC RemisolCO2 [Moles/Vol]26 mmol/UKotery19 - 31 mmol/LFTMC Remisol Creatinine [Mass/Vol]0.7 mg/dLNormal0.5 - 1.3 mg/dLFTMC RemisolGFR/1.73 sq M.predicted among blacks MDRD (S/P/Bld) [Vol rate/Area]mL/min/1.73 a2Omjszv >=59mL/min/1.73 m2FT Chem SGFR/1.73 sq M.predicted among non-blacks MDRD (S/P/Bld) [Vol rate/Area]mL/min/1.73 z5Muohtu>=59mL/min/1.73 m2FT Chem S Glucose [Mass/Vol]92 mg/zYWzgsxs00 - 199 mg/dLFTMC RemisolPotassium [Moles/Vol] 4.0 mmol/LNormal3.5 - 5.3 mmol/LFTMC RemisolSodium [Moles/Vol]136 mmol/LNormal 135 - 145 mmol/LFTMC RemisolTSH Qn3.13 m[IU]/LNormal0.34 - 5.60 mcIU/mLFTMC RemisolUrea nitrogen [Mass/Vol]16 mg/dLNormal5 - 21 mg/dLFTMC RemisolUrea nitrogen/Creatinine [Mass ratio]23 mg/yeUzjr68 - 20FTMC RemisolHEMATOLOGYOrdered By: SYSTEM SYSTEM on 13-67-7300Hbiudwrqx/100 WBC (Bld)0.8 %Normal0.0 - 2.0 %FTMC HemeAutoSSBasophils/Leukocytes Auto (Bld) [Pure # fraction]0.0 E9/LNormal0.0 - 0.2 E9/LFTMC HemeAutoSSEosinophils/100 WBC (Bld)3.5 %Normal0.0 - 8.0 %FT[facility] HemeAutoSSEosinophils/Leukocytes Auto (Bld) [Pure # fraction]0.2 E9/LNormal0.0 - 0.5 E9/LFTMC HemeAutoSSLymphocytes/100 WBC (Bld)51.8 %High14.0 - 50.0 %FT[facility] HemeAutoSSLymphocytes/Leukocytes Auto (Bld) [Pure # fraction]2.2 E9/LNormal1.0 - 4.0 E9/LFTMC HemeAutoSSMonocytes/100 WBC (Bld)8.8 %Normal4.0 - 14.0 %[facility] HemeAutoSSMonocytes/Leukocytes Auto (Bld) [Pure # fraction]0.4 E9/LNormal0.2 - 1.0 E9/LFTMC HemeAutoSSNeutrophils/100 WBC (Bld)35.1 %Low36.0 - 75.0 %[facility] HemeAutoSSNeutrophils/Leukocytes Auto (Bld) [Pure # fraction]1.5 E9/LLow2.0 - 7.5 E9/LFTMC HemeAutoSSHEMATOLOGYOrdered By: Lupe Kasper on 06-26-2021 Erythrocyte distribution width (RBC) [Ratio]13.7 %Gqugqn44.9 - 14.2 %[facility] HemeAutoSSHematocrit (Bld) [Volume fraction]39.1 %Tejesy31.0 - 46.0 %FT[facility] HemeAutoSSHemoglobin (Bld) [Mass/Vol]13.2 g/sJXnhjkn95.0 - 16.0 gm/dLFTMC HemeAutoSSMCH (RBC) [Entitic mass]31.1 qqSgrcrh10.0 - 34.0 pgFTMC HemeAutoSSMCHC (RBC) [Mass/Vol]33.7 g/zIHcjtsi89.4 - 36.0 gm/dLFTMC HemeAutoSSMCV (RBC) [Entitic vol]92.2 eNTanjvi59.0 - 100.0 fLFTMC HemeAutoSSPlatelet mean volume (Bld) [Entitic vol]7.6 fLNormal6.4 - 10.8 fLFTMC HemeAutoSSPlatelets (Bld) [#/Vol]199.0 E9/DDgojlm611.0 - 500.0 E9/LFTMC HemeAutoSSRBC (Bld) [#/Vol]4.2 E12/LLow4.3 - 5.9 E12/LFTMC HemeAutoSSWBC corrected for nucl RBC Auto (Bld) [#/Vol]4.3 E9/LNormal4.0 - 11.0 E9/LFTMC HemeAutoSSComment on above:Result Comment: Slide reviewed by CMK.CHEMISTRYOrdered By: SYSTEM SYSTEM on 06-25-2021 Anion gap [Moles/Vol]10 mmol/LNormal6 - 16 mEq/LFTMC RemisolCalcium [Mass/Vol] 8.9 mg/dLNormal8.9 - 11.1 mg/dLFTMC RemisolChloride [Moles/Vol]104 mmol/LNormal 101 - 111 mmol/LFTMC RemisolCO2 [Moles/Vol]24 mmol/KGslsbp14 - 31 mmol/LFTMC RemisolCreatinine [Mass/Vol]0.7 mg/dLNormal0.5 - 1.3 mg/dLFT RemisolGFR/1.73 sq M.predicted among blacks MDRD (S/P/Bld) [Vol rate/Area]mL/min/1.73 w7Hlopup >=59mL/min/1.73 m2[facility] Chem SGFR/1.73 sq M.predicted among non-blacks MDRD (S/P/Bld) [Vol rate/Area]mL/min/1.73 r6Dsbkgc>=59mL/min/1.73 m2[facility] Chem S Glucose [Mass/Vol]101 mg/tTFrxltu98 - 199 mg/dLSURGICAL HOSP[facility] [place] RemisolPotassium [Moles/Vol] 4.0 mmol/LNormal3.5 - 5.3 mmol/LFTMC RemisolSodium [Moles/Vol]134 mmol/LMxf904 - 145 mmol/LFTMC RemisolTroponin I.cardiac [Mass/Vol]pg/mLLow10.10 - 27.10 pg/mL [facility] RemisolUrea nitrogen [Mass/Vol]16 mg/dLNormal5 - 21 mg/dLSURGICAL [facility] [place] RemisolUrea nitrogen/Creatinine [Mass ratio]23 mg/jiEsle68 - 20FT RemisolCHEMISTRYOrdered By: Lab ROPUser on 74-03-0488Qyknevf [Mass/Vol]96 mg/dZBkxhom33 - 99 mg/dLSURGICAL [facility] [place] POC SubsectionComment on above:Result Comment: Notified RN/MDPOC Device SN [id number] Interpretation CodeFT POC SubsectionPOC User [id number] Invalid Interpretation CodeFT POC SubsectionPOC UsernamZACHERY Goetz Invalid Interpretation CodeFT POC SubsectionCOAGULATIONOrdered By: Xiomara Lawton on 47-00-6524cXVI Coag (PPP) [Time]31.4 oKrajyl41.1 - 36.5 second(s)[facility] Auto CoagINR Coag (PPP) [Relative time]1.1 {INR}Invalid Interpretation CodeFTMC Auto CoagPT Coag (PPP) [Time]12.6 yYnpwbb43.2 - 12.9 second(s)FT[facility] Auto Coag HEMATOLOGYOrdered By: SYSTEM SYSTEM on 07-59-3835Zqjwopirk/100 WBC (Bld)1.0 % Normal0.0 - 2.0 %[facility] HemeAutoSSBasophils/Leukocytes Auto (Bld) [Pure # fraction]0.1 E9/LNormal0.0 - 0.2 E9/LFTMC HemeAutoSSEosinophils/100 WBC (Bld)2.5 %Normal0.0 - 8.0 %[facility] HemeAutoSSEosinophils/Leukocytes Auto (Bld) [Pure # fraction]0.1 E9/LNormal0.0 - 0.5 E9/LFTMC HemeAutoSSLymphocytes/100 WBC (Bld) 34.5 %Uoxrcc99.0 - 50.0 %FT[facility] HemeAutoSSLymphocytes/Leukocytes Auto (Bld) [Pure # fraction]1.8 E9/LNormal1.0 - 4.0 E9/LFTMC HemeAutoSSMonocytes/100 WBC (Bld)8.3 %Normal4.0 - 14.0 %[facility] HemeAutoSSMonocytes/Leukocytes Auto (Bld) [Pure # fraction]0.4 E9/LNormal0.2 - 1.0 E9/LFTMC HemeAutoSSNeutrophils/100 WBC (Bld) 53.7 %Xaryyg46.0 - 75.0 %[facility] HemeAutoSSNeutrophils/Leukocytes Auto (Bld) [Pure # fraction]2.8 E9/LNormal2.0 - 7.5 E9/LFTMC HemeAutoSSHEMATOLOGYOrdered By: Nahed Simental on 56-20-0090Dcxiswkymwt distribution width (RBC) [Ratio]13.6 %Wbvyoz00.9 - 14.2 %[facility] HemeAutoSSHematocrit (Bld) [Volume fraction]38.6 % Aomeiq29.0 - 46.0 %[facility] HemeAutoSSHemoglobin (Bld) [Mass/Vol]13.3 g/vODauzuu77.0 - 16.0 gm/dLFTMC HemeAutoSSMCH (RBC) [Entitic mass]31.3 fjFtajko06.0 - 34.0 pg FT HemeAutoSSMCHC (RBC) [Mass/Vol]34.4 g/dMIvdelj42.4 - 36.0 gm/dLFT HemeAutoSSMCV (RBC) [Entitic vol]91.2 rNPylhiv69.0 - 100.0 fLFT HemeAutoSS Platelet mean volume (Bld) [Entitic vol]7.3 fLNormal6.4 - 10.8 fLFT HemeAutoSS Platelets (Bld) [#/Vol]218.0 E9/ZLtwzpu527.0 - 500.0 E9/LFTMC HemeAutoSSRBC (Bld) [#/Vol]4.2 E12/LLow4.3 - 5.9 E12/LFTMC HemeAutoSSWBC corrected for nucl RBC Auto (Bld) [#/Vol]5.2 E9/LNormal4.0 - 11.0 E9/LFTMC HemeAutoSSXR ANKLE LT MIN 3 Von 22-30-5331XI ANKLE LT MIN 3 VPROCEDURE: XR FOOT LT MIN 3 VIEWS, XR ANKLE LT MIN 3 V HISTORY: Pain in left foot ; chronic left ankle and foot pain, flattening of arch COMPARISON: None. FINDINGS: BONES:Mechanical fusion of the first metatarsophalangeal joint. One of the proximal screws within the plate extends slightly 1 mm the plate. Flattening of the plantar arch. Small calcaneal plantar spur. No appreciable degenerative changes of the ankle joint. SOFT TISSUES:No visible soft tissue swelling. EFFUSION:None visible. OTHER: Negative. IMPRESSION: 1. Fusion of the first metatarsophalangeal joint. One of the dorsal screws within the plate extends minimally below the plate, of uncertain clinical significance. No prior studies to document stability versus backing out of the screw. 2. Pes planus. 3. Unremarkable ankle joint. Electronically authenticated by: MATTI NOVA Date: 2020-01-13 15:15NormalUniversity Hospitals Samaritan Medical CenterANES Sosa [id number] POSTHNO ID: [id number] Author: Hong Root Service: Anesthesiology Author Type: Anesthesiologist Type: Anesthesia PostOp Filed: 09/01/2018 9:49 AM Note Text: POST ANESTHESIA EVALUATION NOTE SERVICE DATE: 09/01/2018 SERVICE TIME: 0948 : 1940 Vitals: 09/01/18 0812 09/01/18929 Temp: 36.5 ?C (97.7 ?F) 36.6 ?C (97.9 ?F) 09/01/18 0812 09/01/18 0930 09/01/1839 BP: 147/64 127/60 138/58 09/01/18 0812 09/01/18 0930 09/01/18 09 Pulse: 67 70 68 09/01/18 0812 09/01/18 0930 09/01/18 0939 Resp: 16 18 16 09/01/18 0812 09/01/18 0930 09/01/18938 SpO2: 97% 97% 97% Validated Vital Signs: Yes POST ANES STATUS: No apparent anesthetic complications. The patient is appropriately hydrated with stable respiratory and cardiovascular status. Patient has safe and adequate airway control. The patient has appropriate pain relief and no significant post operative nausea or vomiting. The patient has achieved baseline mental status. Intra-Operative Events: No Significant Anesthesia Events Further assessment by Anesthesia Service: None Other Remarks: SIGNATURE: Hong Root MD PATIENT NAME: Shima Michele DATE: September 01, 2018 TIME: 9:48 AM PAGER/CONTACT #:[facility] PREOPon [id number] PREOPHNO ID: [id number] Author: Hong Root Service: Anesthesiology Author Type: Anesthesiologist Type: Anesthesia PreOp Filed: 09/01/2018 8:46 AM Note Text: REGIONAL ANESTHESIOLOGY PREOPERATIVE ASSESSMENT Surgeon(s): Lamine Samuel Procedure(s) (LRB): PHACOEMULSIFICATION CATARACT IMPLANT INTRAOCULAR LENS (Left) Vitals: 09/01/18811 BP: 147/64 Pulse: 67 Resp: 16 Temp: 36.5 ?C (97.7 ?F) TempSrc: Temporal SpO2: 97% ACTIVE PROBLEM LIST Follow-Up Examination, Following Unspecified Surgery Fitting and Adjustment of Orthopedic Device Posterior Tibial Tendon Dysfunction ANKLE INSTABILITY Obesity (Bmi 30.0-34.9) Other Specified Hypothyroidism Other Hyperlipidemia Svt (Supraventricular Tachycardia) (Hcc) Gerd (Gastroesophageal Reflux Disease) PAST MEDICAL HISTORY Diagnosis Date - Anxiety - Depression - GERD (gastroesophageal reflux disease) - Hyperlipidemia - Hypothyroidism - Irregular heart beat PACs PAST SURGICAL HISTORY Procedure Laterality Date - CORRECT BUNION,SIMPLE 2004 Bunion - HAMMERTOE REVISION, ONE TOE 02/2008 [facility] right 2nd toe - KNEE SCOPE,DIAGNOSTIC 2003; 2004 Arthroscopy, knee - PAST SURGICAL HISTORY OF 08/18/2017 Local Cystoscopy with botox ( CARE EVERYWHERE) - PAST SURGICAL HISTORY OF 01/2018 Heart ablation for SVT: [facility] - PAST SURGICAL HISTORY OF Bilateral knee arthroplasty - PAST SURGICAL HISTORY OF Bilateral rotator cuff surgery - TOTAL ABDOM HYSTERECTOMY 1985 Hysterectomy, JOVANI FAMILY HISTORY Problem Relation Age of Onset - Cancer Mother breast - Cancer Father lung Social History: Social History Tobacco Use - Smoking status: Never Smoker - Smokeless tobacco: Never Used Substance Use Topics - Alcohol use: Yes Alcohol/week: 1.5 oz Types: 1 Glasses of Wine (5oz) per week - Drug use: Never No current facility-administered medications on file prior to encounter. Current Outpatient Medications on File Prior to Encounter: atorvastatin (LIPITOR) 10 mg tablet verapamil ER (VERELAN) 120 mg 24 hr capsule once daily. omeprazole magnesium (PRILOSEC ORAL) Take by mouth once daily. levothyroxine (SYNTHROID) 75 mcg ORAL tablet Take 50 mcg by mouth once daily. MAGNESIUM ORAL Take by mouth once daily. VITAMIN B COMPLEX (B COMPLETE ORAL) Take by mouth. ONE TABLET PER DAY aspirin, enteric coated (ECOTRIN LOW STRENGTH) 81 mg ORAL EC tablet Take 1 tablet by mouth once daily. calcium carbonate/vitamin d3(CALCIUM 600 + D(3) 600 MG (1,500)-200 UNIT TAB) MULTIVITAMIN TAB Take one(1) tablet daily. Current Facility-Administered Medications Medication Dose Route Frequency Provider Last Rate Last Dose - lactated ringers infusion 30 mL/hr INTRAVENOUS CONTINUOUS Lamine E White 30 mL/hr at 09/01/18 0820 30 mL/hr at 09/01/18 0820 - moxifloxacin 0.5 mg/0.1 mL 0.1 mL intraocular injection (VIGAMOX) 0.1 mL LEFT EYE As Directed Lamine E Lizzie - PHENYLephrine syringe 1.5% (15 mg/mL) (ESTEFANÍA-SYNEPHRINE) 2 mL LEFT EYE ONCE Lamine E White Allergies: ALLERGIES No Known Allergies REVIEW OF SYSTEMS: As stated in Active Problem List/ Past Medical History Sodium 137 12/26/2010 Glucose 80 12/26/2010 Potassium 4.5 12/26/2010 Creatinine 0.72 12/26/2010 EKG RESULTS: nonspecific ST and T waves changes ANESTHESIOLOGY REVIEW: Airway Assessment: MP 1; Neck ROM: Full ROM without neurologic symptoms; Airway Evaluation: SMALL MOUTH OPENING Symptoms of Sleep Apnea: N/A Intubation History: No previous history of difficult intubation Dentition: Teeth intact ADVERSE ANESTHESIA EVENT: No history of adverse event FAMILY HIISTORY OF ANESTHESIA: No known issues Blood Products: Not anticipated for this procedure Other Medical Problems: None Additional Physical Exam: Lungs: Lungs clear to auscultation. Good diaphragmatic excursion. Cardiac: normal S1 and S2; no rubs, no murmurs, and no gallops Additional pertinent findings: N/A I have interviewed and examined the patient. I have reviewed the medical record and/or the pre-anesthesia evaluation, pertinent labs, and test results. Significant changes in the patient's condition since the History and Physical, not otherwise documented in primary service progress notes: No Anesthetic risks, benefits, alternatives, personnel and consent discussed. Yes ASA 2 NPO >8 hours PLAN: MAC This contains updated information obtained within 48 hours of Surgery/Procedure. SIGNATURE: Hong Root MD PATIENT NAME: Shima Michele DATE: September 01, 2018 TIME: 8:44 AM [facility] 09-01-2018 OPERATIVE NOHNO ID: [id number] Author: Lamine Samuel Service: ? Author Type: Physician Type: Operative Report Filed: 09/01/2018 9:29 AM Note Text: OPERATIVE/PROCEDURE REPORT LOG ID: [id number] Surgery/Procedure Date: 09/01/2018 Incision/Procedure Start Time: 9:17 AM Incision Close/Procedure End Time: 9:28 AM Surgeon(s)/Proceduralist(s) and Hydrocrane Operator(s): Surgeon(s) and Role: * Lamine Samuel - Primary No Additional Staff Procedure: Phacoemulsification with posterior chamber intraocular lens left eye. Anesthesia: Local stand-by Procedure Details: Patient entered the operating room in good condition. After establishing that adequate anesthesia had been obtained, the patient was prepped and draped in sterile fashion for intraocular surgery of the Left eye. A wire lid speculum was placed in the eye and a paracentesis was made. The anterior chamber was deepened using viscoelastic. The anterior chamber was entered again using a rupali blade. A continuous tear capsulotomy was performed. Hydrodissection was then performed. The lens nucleus was rotated. Phacoemulsification was carried out in the usual fashion without complications. Cortical clean-up was then performed using the automated I/A. The capsular bag was polished. The capsular bag was then deepened using viscoelastic. The posterior chamber intraocular lens was then placed in the capsular bag and rotated into position without complication. Residual viscoelastic was removed. The anterior chamber was deepened using BSS. A watertight wound was obtained. The wire lid speculum was removed. The eye was dressed with antibiotic ointment. A protective shield was placed over the eye. The patient left the operating room in good condition. Estimated Blood Loss: None Implantable Devices: Posterior Chamber IOL Complications: None Preoperative Diagnosis: Cataract, left eye with decreased vision resulting in difficulty performing ADL Postop Diagnosis: same I performed the entire procedure. SIGNATURE: Lamine Samuel MD PATIENT NAME: Shima Michele DATE: September 01, 2018 TIME: 9:29 AM PAGER/CONTACT #:[facility] 08-25-2018 Protein mass concHNO ID: [id number] Author: [place] (Rn) PER Zheng Service: General Surgery Author Type: Registered Nurse Type: Nursing Progress Note Filed: 08/25/2018 1:13 PM Note Text: PACC Nurse Progress Note ? History AND Physical: PACC Visit Date: 08-12-18 Original HANDP Date: N/A ED visit Date: N/A Outside HANDP Scanned Date: N/A ? ? Labs Within Last 6 Months: N/A ? Imaging Within Last 12 Months: N/A ? Cardiac Testing: N/A ? Last Menstrual Period: LMP Date: Not recorded Postmenopausal >1yr: Yes, S/P Hysterectomy: Yes ? BMI Percentile (PEDS): N/A ? Risk Assessment: N/A ? Anesthesia Review: N/A ? Narrative: N/A ? Pre-op Considerations: Per HANDP: Obesity (BMI 30.0-34.9) Assessment:?Body mass index is 32.56 kg/m?. Weight reduction encouraged. ? ? ? Other specified hypothyroidism Assessment:?Managed with med ? ? ? Other hyperlipidemia Assessment:?Managed with med ? ? ? SVT (supraventricular tachycardia) (HCC) Assessment:?s/p ablation 01/2018;?Monitored by?Dr. Salas ? Stable, no other episodes since. ? ? ? GERD (gastroesophageal reflux disease) Assessment:?mild, per Pt. report Managed with med ? ? Chart Check: COMPLETED [place] Zheng RN August 25, 2018 1:13 [id number] Patient:Shima Michele MRN: Height:5' 2 (1.575 m) Weight:178 lb (80.74 kg) Outpatient Medications as of 09/01/18: atorvastatin (LIPITOR) 10 mg tablet verapamil ER (VERELAN) 120 mg 24 hr capsule omeprazole magnesium (PRILOSEC ORAL) MAGNESIUM ORAL VITAMIN B COMPLEX (B COMPLETE ORAL) aspirin, enteric coated (ECOTRIN LOW STRENGTH) 81 mg ORAL EC tablet levothyroxine (SYNTHROID) 75 mcg ORAL tablet calcium carbonate/vitamin d3(CALCIUM 600 + D(3) 600 MG (1,500)-200 UNIT TAB) MULTIVITAMIN TAB Admission/Clinic Administered Medications as of 09/01/18: lactated ringers infusion moxifloxacin 0.5 mg/0.1 mL 0.1 mL intraocular injection (VIGAMOX) PHENYLephrine syringe 1.5% (15 mg/mL) (ESTEFANÍA-SYNEPHRINE) Problem List: Follow-up examination, following unspecified surgery [Z09] Fitting and adjustment of orthopedic device [Z46.89] Posterior tibial tendon dysfunction [M76.829] ANKLE INSTABILITY [M24.873, M24.876] Obesity (BMI 30.0-34.9) [E66.9] Other specified hypothyroidism [E03.8] Other hyperlipidemia [E78.49] SVT (supraventricular tachycardia) (HCC) [I47.1] GERD (gastroesophageal reflux disease) [K21.9] Allergies: No Known Allergies Date Verified:09/01/18 Lab Values No results within the last 30 days for the following basenames: K,HCT No progress notes entered within the past 30 daysLahey [facility] & Medical CenterANES Sosa [id number] POSTHNO ID: [id number] Author: Chris Wilson Service: Anesthesiology Author Type: Anesthesiologist Type: Anesthesia PostOp Filed: 08/18/2018 8:44 AM Note Text: POST ANESTHESIA EVALUATION NOTE SERVICE DATE: 08/18/2018 SERVICE TIME: 8:44 AM : 1940 Vitals: 08/18/18 0842 Temp: 36.7 ?C (98.1 ?F) 08/18/18 0710 08/18/18 0842 BP: 166/68 127/64 08/18/18 0710 08/18/18 0842 Pulse: 69 68 08/18/18 0710 08/18/18 0842 Resp: 18 16 08/18/18 0710 08/18/18 0842 SpO2: 98% 96% Validated Vital Signs: Yes POST ANES STATUS: No apparent anesthetic complications. The patient is appropriately hydrated with stable respiratory and cardiovascular status. Patient has safe and adequate airway control. The patient has appropriate pain relief and no significant post operative nausea or vomiting. The patient has achieved baseline mental status. Intra-Operative Events: No Significant Anesthesia Events Further assessment by Anesthesia Service: None Other Remarks: SIGNATURE: Chris Wilson DO PATIENT NAME: Shima Michele DATE: August 18, 2018 TIME: 8:44 AM PAGER[phone] PREOPon [id number] PREOPHNO ID: [id number] Author: Chris Wilson Service: Anesthesiology Author Type: Anesthesiologist Type: Anesthesia PreOp Filed: 08/18/2018 7:40 AM Note Text: ANESTHESIOLOGY DAY OF SURGERY NOTE SERVICE DATE: 08/18/2018 SERVICE TIME: 7:13 AM : 1940 Procedure(s) (LRB): PHACOEMULSIFICATION CATARACT IMPLANT INTRAOCULAR LENS (Right) Surgeon(s): Lamine Samuel Estimated body mass index is 32.56 kg/m? as calculated from the following: Height as of 08/12/18: 157.5 cm (5' 2 ). Weight as of 08/12/18: 80.7 kg (178 lb). Most recent hematocrit and potassium results: Potassium 4.5 12/26/2010 No results found for: HB, HCT, WBC, PLT CMP: Glucose 80 12/26/2010 BUN 20 12/26/2010 Creatinine 0.72 12/26/2010 Sodium 137 12/26/2010 Potassium 4.5 12/26/2010 Chloride 104 12/26/2010 CO2 24 12/26/2010 Calcium 9.5 12/26/2010 ANES DOS/PREOP NOTE: Vitals: There were no vitals filed for this visit. ACTIVE PROBLEM LIST Follow-Up Examination, Following Unspecified Surgery Fitting and Adjustment of Orthopedic Device Posterior Tibial Tendon Dysfunction ANKLE INSTABILITY Obesity (Bmi 30.0-34.9) Other Specified Hypothyroidism Other Hyperlipidemia Svt (Supraventricular Tachycardia) (Hcc) Gerd (Gastroesophageal Reflux Disease) PAST MEDICAL HISTORY Diagnosis Date - Anxiety - Depression - GERD (gastroesophageal reflux disease) - Hyperlipidemia - Hypothyroidism - Irregular heart beat PACs PAST SURGICAL HISTORY Procedure Laterality Date - CORRECT BUNION,SIMPLE 2004 Bunion - HAMMERTOE REVISION, ONE TOE 02/2008 [facility] [place] 2nd toe - KNEE SCOPE,DIAGNOSTIC 2003; 2004 Arthroscopy, knee - PAST SURGICAL HISTORY OF 08/18/2017 Local Cystoscopy with botox ( CARE EVERYWHERE) - PAST SURGICAL HISTORY OF 01/2018 Heart ablation for SVT: [facility] - PAST SURGICAL HISTORY OF Bilateral knee arthroplasty - PAST SURGICAL HISTORY OF Bilateral rotator cuff surgery - TOTAL ABDOM HYSTERECTOMY 1985 Hysterectomy, [facility]OV[facility] FAMILY HISTORY Problem Relation Age of Onset - Cancer Mother breast - Cancer Father lung Social History: Social History Tobacco Use - Smoking status: Never Smoker - Smokeless tobacco: Never Used Substance Use Topics - Alcohol use: Yes Alcohol/week: 1.5 oz Types: 1 Glasses of Wine (5oz) per week - Drug use: Never No current facility-administered medications on file prior to encounter. Current Outpatient Medications on File Prior to Encounter: VITAMIN B COMPLEX (B COMPLETE ORAL) Take by mouth. ONE TABLET PER DAY aspirin, enteric coated (ECOTRIN LOW STRENGTH) 81 mg ORAL EC tablet Take 1 tablet by mouth once daily. levothyroxine (SYNTHROID) 75 mcg ORAL tablet Take 50 mcg by mouth once daily. calcium carbonate/vitamin d3(CALCIUM 600 + D(3) 600 MG (1,500)-200 UNIT TAB) MULTIVITAMIN TAB Take one(1) tablet daily. Current Facility-Administered Medications: moxifloxacin 0.5 mg/0.1 mL 0.1 mL intraocular injection (VIGAMOX) 0.1 mL RIGHT EYE ONCE Lamine E White topical mac solution 1 mL 1 mL RIGHT EYE Pre-Op Once Lamine E White PHENYLephrine syringe 1.5% (15 mg/mL) (ESTEFANÍA-SYNEPHRINE) 2 mL RIGHT EYE ONCE Lamine Samuel Allergies: ALLERGIES No Known Allergies DOS EXAM: Adequate NPO Status: Yes Anesthetic Risks, Benefits, Alternatives, Personnel and Consent Discussed: Yes Patient agrees to proceed: Yes Previous Anesthesia: No history of adverse event Airway Assessment: MP 2; Neck ROM: Full ROM without neurologic symptoms; Airway Evaluation: No significant abnormalities Symptoms of Sleep Apnea: Age over 50 (78 year old) Dentition: Teeth intact Additional Physical Exam: Lungs: Patient health status unchanged since recent history and physical. See history and physical for exam findings. Cardiac: Patient health status unchanged since recent history and physical. See history and physical for exam findings. Additional Pertinent Findings: N/A Blood Products: Not anticipated for this procedure Anesthetic Plan: MAC with general as back up Anesthetic Monitoring: Standard ASA Monitors Pain Management Plan: Parenteral or Oral ASA Class: 2 Other Medical Problems: None Chronic Beta Delma medication administered within 24 hours: N/A I have interviewed and examined the patient. I have reviewed the medical record and/or the pre-anesthesia evaluation, pertinent labs, and test results. Significant changes in the patient's condition since the History and Physical, not otherwise documented in primary service progress notes: No. This contains updated information obtained within 48 hours of Surgery/Procedure. SIGNATURE: Chris Wilson DO PATIENT NAME: Shima Michele DATE: August 18, 2018 TIME: 7:13 AM CSN: [id number] NOon 08-18-2018 OPERATIVE NOHNO ID: [id number] Author: Lamine Samuel Service: ? Author Type: Physician Type: Operative Report Filed: 08/18/2018 8:38 AM Note Text: OPERATIVE/PROCEDURE REPORT LOG ID: [id number] Surgery/Procedure Date: 08/18/2018 Incision/Procedure Start Time: 8:27 AM Incision Close/Procedure End Time: 8:36 AM Surgeon(s)/Proceduralist(s) and Hydrocrane Operator(s): Surgeon(s) and Role: * Lamine Samuel - Primary No Additional Staff Procedure: Phacoemulsification with posterior chamber intraocular lens right eye. Anesthesia: Local stand-by Procedure Details: Patient entered the operating room in good condition. After establishing that adequate anesthesia had been obtained, the patient was prepped and draped in sterile fashion for intraocular surgery of the Right eye. A wire lid speculum was placed in the eye and a paracentesis was made. The anterior chamber was deepened using viscoelastic. The anterior chamber was entered again using a rupali blade. A continuous tear capsulotomy was performed. Hydrodissection was then performed. The lens nucleus was rotated. Phacoemulsification was carried out in the usual fashion without complications. Cortical clean-up was then performed using the automated I/A. The capsular bag was polished. The capsular bag was then deepened using viscoelastic. The posterior chamber intraocular lens was then placed in the capsular bag and rotated into position without complication. Residual viscoelastic was removed. The anterior chamber was deepened using BSS. A watertight wound was obtained. The wire lid speculum was removed. The eye was dressed with antibiotic ointment. A protective shield was placed over the eye. The patient left the operating room in good condition. Estimated Blood Loss: None Implantable Devices: Posterior Chamber IOL Complications: None Preoperative Diagnosis: Cataract, right eye with decreased vision resulting in difficulty performing ADL Postop Diagnosis: same I performed the entire procedure. SIGNATURE: Lamine Samuel MD PATIENT NAME: Shima Michele DATE: August 18, 2018 TIME: 8:38 AM PAGER/CONTACT #:[facility] 08-12-2018 Protein mass concHNO ID: [id number] Author: America (Rn) PER Zheng Service: General Surgery Author Type: Registered Nurse Type: Nursing Progress Note Filed: 08/12/2018 2:07 PM Note Text: PACC Nurse Progress Note History AND Physical: PACC Visit Date: 08-12-18 Original HANDP Date: N/A ED visit Date: N/A Outside HANDP Scanned Date: N/A Labs Within Last 6 Months: N/A Imaging Within Last 12 Months: N/A Cardiac Testing: N/A Last Menstrual Period: LMP Date: Not recorded Postmenopausal >1yr: Yes, S/P Hysterectomy: Yes BMI Percentile (PEDS): N/A Risk Assessment: N/A Anesthesia Review: N/A Narrative: N/A Pre-op Considerations: Per HANDP: Obesity (BMI 30.0-34.9) Assessment: Body mass index is 32.56 kg/m?. Weight reduction encouraged. ? ? ? Other specified hypothyroidism Assessment: Managed with med ? ? ? Other hyperlipidemia Assessment: Managed with med ? ? ? SVT (supraventricular tachycardia) (HCC) Assessment: s/p ablation 01/2018; Monitored by Dr. Salas ? Stable, no other episodes since. ? ? ? GERD (gastroesophageal reflux disease) Assessment: mild, per Pt. report Managed with med Chart Check: COMPLETED America Zheng RN August 12, 2018 2:06 [id number] Patient:Shima Michele MRN: Height:5' 2 (1.575 m) Weight:178 lb (80.74 kg) Outpatient Medications as of 08/18/18: atorvastatin (LIPITOR) 10 mg tablet verapamil ER (VERELAN) 120 mg 24 hr capsule omeprazole magnesium (PRILOSEC ORAL) MAGNESIUM ORAL VITAMIN B COMPLEX (B COMPLETE ORAL) aspirin, enteric coated (ECOTRIN LOW STRENGTH) 81 mg ORAL EC tablet levothyroxine (SYNTHROID) 75 mcg ORAL tablet calcium carbonate/vitamin d3(CALCIUM 600 + D(3) 600 MG (1,500)-200 UNIT TAB) MULTIVITAMIN TAB Admission/Clinic Administered Medications as of 08/18/18: lactated ringers infusion moxifloxacin 0.5 mg/0.1 mL 0.1 mL intraocular injection (VIGAMOX) PHENYLephrine syringe 1.5% (15 mg/mL) (ESTEFANÍA-SYNEPHRINE) Problem List: Follow-up examination, following unspecified surgery [Z09] Fitting and adjustment of orthopedic device [Z46.89] Posterior tibial tendon dysfunction [M76.829] ANKLE INSTABILITY [M24.873, M24.876] Obesity (BMI 30.0-34.9) [E66.9] Other specified hypothyroidism [E03.8] Other hyperlipidemia [E78.49] SVT (supraventricular tachycardia) (HCC) [I47.1] GERD (gastroesophageal reflux disease) [K21.9] Allergies: No Known Allergies Date Verified:08/18/18 Lab Values No results within the last 30 days for the following basenames: K,HCT No progress notes entered within the past 30 daysLahey [facility] & Medical CenterBauofl [facility] Metabolic Panelon 14-39-4655Tuncw gap7 mmol/CFvf36-49UUE HealthcareComment on above:Performed By: #### [id number] ####[facility] [address] [place], [place] [address]Ujxaexxtxyb (HCO3)26 mmol/EEzzjfm34-06AFD HealthcareComment on above:Performed By: #### [id number] ####[facility] [address] [place], [place] [address]CLT/Creatinine Ratio25 mg/mgNormal5-25EMH HealthcareComment on above:Performed By: #### [id number] ####[facility] [address] [place] [address] Calcium9.0 mg/dLNormal8.6-10.3EMH HealthcareComment on above:Performed By: #### [id number] ####[facility] [address] [place], [place] [address]Atqhlocp459 mmol/OByap17-046VCN HealthcareComment on above:Performed By: #### [id number] ####[facility] [address] [place], [place] [address]Lgcnoiopcw6.71 mg/dLNormal0.50-1.05EMH HealthcareComment on above:Performed By: #### [id number] ####[facility] [address] [place], [place] [address]eHAQ (MDRD)mL/min/{1.73_m2}NormalEMH Healthcare Comment on above:Result Comment: Interpretation for Chronic Kidney Disease:Stages 1&2 >60 Healthy or potential kidney damage.Mild decrease of GFR.Stage 3 30-59 Moderate decrease of GFR.Stage 4 15-29 Severe decrease of GFR.Stage 5 <15 Kidney failure or on dialysis.Performed By: #### [id number] ####[facility] [address] [place] [address] Glucose mass conc91 mg/vGSrhwcq76-192RFO HealthcareComment on above:Performed By: #### [id number] ####[facility] [address] [place], [place] [address]Bngjphnhl molar conc4.0 mmol/LNormal3.5-5.1EMH Healthcare Comment on above:Performed By: #### [id number] ####[facility] I[address] [facility] [place], [place] [address]Hstcps832 mmol/NZqplga026-437LTQ HealthcareComment on above:Performed By: #### [id number] ####[facility] Hhx[address] [facility] [place], [place] [address]Jpyf koscpwlv22 mg/dL Normal6-23EMH HealthcareComment on above:Performed By: #### [id number] ####[facility] P[address] [facility] [place] [address] CBCon 51-00-4312Ypbvezmdulk distribution width Auto Ratio (RBC)13.7 %Normal 12.0-15.4EMH HealthcareComment on above:Performed By: #### [id number] ####[facility] [address] [facility] [place] [address] Erythrocytes (RBC)0.0 /100{WBCs}NormalEMH HealthcareComment on above:Performed By: #### [id number] ####[facility] Q[address] [facility] [place], [place] [address]Urvtlshdnydr (RBC)4.19 10*6/uLNormal3.85-5.10EMH Healthcare Comment on above:Performed By: #### [id number] ####[facility] Iro[address] [facility] [place], [place] [address]Qpaebhxesjuo (RBC)0.00 10*3/uL NormalEMH HealthcareComment on above:Performed By: #### [id number] ####[facility] Jfc[address] [facility] [place], [place] [address]Snbetpyxzj (HCT)40.0 %Sstntp77.5-46.6EMH HealthcareComment on above:Performed By: #### [id number] ####[facility] [address] [facility] [place], [place] [address]Ishyurpmdy mass conc (Bld)13.8 g/sWKsqtuv22.8-15.3EMH HealthcareComment on above:Performed By: #### [id number] ####[facility] [address] [place] [address]NOT02.9 igOnlkjf67.5-33.0EMH Healthcare Comment on above:Performed By: #### [id number] ####[address] [address]TMTI mass conc (RBC)34.5 g/dL Vrglos46.1-35.0EMH HealthcareComment on above:Performed By: #### [id number] ####[address] [address] MCV95.5 yUUxuwnx52.4-100.0EMH HealthcareComment on above:Performed By: #### [id number] ####[address] [address]Wmtxsvve mean volume (PMV)9.2 fLLow9.9-12.1EMH HealthcareComment on above:Performed By: #### [id number] ####[address] [address]Tcftbficm303 10*3/aPJkllqt482-123DFI Healthcare Comment on above:Performed By: #### [id number] ####[address] [address]IAA SD48.9 lGWhkw93.3-48.6EMH HealthcareComment on above:Performed By: #### [id number] ####[address] [address]OUS (Leukocytes)6.0 10*3/uLNormal4.4-9.9EMH HealthcareComment on above:Performed By: #### [id number] ####[address] [address] Prothrombin Timeon 77-47-1935QRD Coag RelTime (PPP)0.96 {INR}Normal0.85-1.16EMH HealthcareComment on above:Result Comment: Coumadin Therapy:1.5 - 2.0 Low Intensity Therapy2.0 - 3.0 Moderate Intensity Therapy2.5 - 3.5 High (1) Intensity Therapy3.0 - 4.0 High (2) Intensity TherapyPerformed By: #### [id number] ####[facility] [address] [place] [address] Prothrombin time (PT) Coag time (PPP)12.7 iOdkbda68.3-14.5E HealthcareComment on above:Performed By: #### [id number] ####[facility] Y[address] [place], [place] [address]EQN (SGOT)on 90-58-6643Msgkdkecp aminotransferase (AST)21 U/LLquglu42-51UDI HealthcareComment on above:Performed By: #### [id number] ####[facility] [address] [place], [place] [address]Fiikg Panelon 26-51-4034Adlkywzyaen133 mg/dLNormal<200EMH HealthcareComment on above:Performed By: #### [id number] ####[facility] [address] [place], [place] [address]Guepzgovgrs in VLDL mass conc12 mg/dLNormal<30EMH HealthcareComment on above:Performed By: #### [id number] ####[facility] [address] [place] [address] Cholesterol to HDL Ratio2.5 {ratio}NormalEMH HealthcareComment on above: Performed By: #### [id number] ####[facility] [address] [place], [place] [address]ABH Dleguawxnzu95 mg/dLNormalE HealthcareComment on above:Result Comment: Age Normal Mod Risk High Risk5-9 >46 38-46 <3810-14 >44 40-44 <4015-19 >42 38-42 <38Adult >49Performed By: #### [id number] ####[facility] [address] [place] [address] LDL Mvujdiwqzug791 mg/dLNormal<130EMH HealthcareComment on above:Performed By: #### [id number] ####[facility] Kws[address] [facility] [address]Usnsffdbbnmd94 mg/dLNormal<150EMH HealthcareComment on above: Result Comment: 150-199 Borderline Atlt839-627 High>500 Very HighPerformed By: #### [id number] ####[address] [address]LJQzm 91-16-3061Vlgryvlybpn distribution width Auto Ratio (RBC)14.1 %Kettfn42.0-15.4EMH HealthcareComment on above:Performed By: #### [id number] ####[address] [address]Kcxiluufrreb (RBC)0.0 /100{WBCs}NormalEMH HealthcareComment on above: Performed By: #### [id number] ####[address] [address]Ochmibhtnrfv (RBC)0.00 10*3/uLNormalEMH Healthcare Comment on above:Performed By: #### [id number] ####[address] [address]Bnucrfkyfqac (RBC)4.22 10*6/uL Normal3.85-5.10EMH HealthcareComment on above:Performed By: #### [id number] ####[address] [address] Hematocrit (HCT)41.4 %Ubcsne26.5-46.6EMH HealthcareComment on above:Performed By: #### [id number] ####[address] [address]Trzglocwpq mass conc (Bld)13.7 g/nLPmhgiv82.8-15.3EMH HealthcareComment on above:Performed By: #### [id number] ####[address] [address]JTR62.5 hgWnpdme15.5-33.0 EMH HealthcareComment on above:Performed By: #### [id number] ####[facility] [address] [place], [place] [address]BJOE mass conc (RBC)33.1 g/fPEonito01.1-35.0EMH HealthcareComment on above:Performed By: #### [id number] ####[address] [address]WAW28.1 oVCtcvpm70.4-100.0EMH HealthcareComment on above:Performed By: #### [id number] ####[address] [address]Mcfppdss mean volume (PMV)10.0 fLNormal9.9-12.1EMH Healthcare Comment on above:Performed By: #### [id number] ####[address] [address]Kbknxtknh718 10*3/uLNormal 155-404EMH HealthcareComment on above:Performed By: #### [id number] ####[address] [address]LKI SD51.4 fL High39.3-48.6EMH HealthcareComment on above:Performed By: #### [id number] ####[address] [address] WBC (Leukocytes)3.9 10*3/uLLow4.4-9.9EMH HealthcareComment on above:Performed By: #### [id number] ####[address] [address]Rsqclllhiemqs Metabolic Panelon 55-31-7826Kimoawj aminotransferase (ALT)22 U/LNormal7-45EMH HealthcareComment on above:Performed By: #### [id number] ####[facility] [address] [place] [address]Tnetiib6.0 g/dLNormal3.4-5.0EMH HealthcareComment on above: Performed By: #### [id number] ####[address] [address]Uuzxqbe/Globulin Ratio1.5 {ratio}Normal0.9-2.4EMH HealthcareComment on above:Performed By: #### [id number] ####[facility] [address] [place], [place] [address]Heqnwgco phosphatase (ALP)90 U/CAqqbjh25-336NAE HealthcareComment on above:Performed By: #### [id number] ####[facility] [address] [place], [place] [address]Btlyo gap11 mmol/RIcsexe15-96IXT HealthcareComment on above:Performed By: #### [id number] ####[facility] [address] [facility] [place], [place] [address]Iohusoxrv aminotransferase (AST)22 U/CXzvaxt43-11YTC HealthcareComment on above:Performed By: #### [id number] ####[facility] [address] [facility] [place], [place] [address]Hbvrcrsikqj (HCO3)27 mmol/NBvnpxf44-21VMY HealthcareComment on above:Performed By: #### [id number] ####[facility] [address] [place] [address] Bilirubin (total)0.7 mg/dLNormal0.0-1.2EMH HealthcareComment on above:Performed By: #### [id number] ####[facility] [address] [facility] [place], [place] [address]ODA/Creatinine Ratio32 mg/mgHigh5-25EMH HealthcareComment on above:Performed By: #### [id number] ####[facility] [address] [facility], [place] [address]Gbtsmiw6.5 mg/dLNormal8.6-10.3EMH Healthcare Comment on above:Performed By: #### [id number] ####[facility] [address] [place], [place] [address]Rjxoiptv958 mmol/KLhjkmo34-931 EMH HealthcareComment on above:Performed By: #### [id number] ####[facility] [address] [place], [place] [address]Jxodxtanva8.76 mg/dLNormal0.50-1.05EMH HealthcareComment on above:Performed By: #### [id number] ####[facility] [address] [place] [address] eGFR (MDRD)mL/min/{1.73_m2}NormalEMH HealthcareComment on above:Result Comment: Interpretation for Chronic Kidney Disease:Stages 1&2 >60 Healthy or potential kidney damage.Mild decrease of GFR.Stage 3 30-59 Moderate decrease of GFR.Stage 4 15-29 Severe decrease of GFR.Stage 5 <15 Kidney failure or on dialysis. Performed By: #### [id number] ####[facility] [address] [place], [place] [address]Wawccvd mass conc84 mg/iZBsxwsr58-395YDO Healthcare Comment on above:Performed By: #### [id number] ####[address] [address]Fzvmeqokp molar conc4.3 mmol/L Normal3.5-5.1EMH HealthcareComment on above:Performed By: #### [id number] ####[facility] [address] [place] [address] Protein6.7 g/dLNormal6.4-8.2EMH HealthcareComment on above:Performed By: #### [id number] ####[facility] [address] [place] [address]Djkhhy204 mmol/XFzwsyi147-196GIS HealthcareComment on above:Performed By: #### [id number] ####[facility] [address] [place], [place] [address]Snyn ejzsumdp81 mg/dLHigh6-23EMH HealthcareComment on above: Performed By: #### [id number] ####[facility] [address] [place], [place] [address]Mlgctotaegs Timeon 43-78-5252KEB Coag RelTime (PPP) 0.98 {INR}Normal0.85-1.16EMH HealthcareComment on above:Result Comment: Coumadin Therapy:1.5 - 2.0 Low Intensity Therapy2.0 - 3.0 Moderate Intensity Therapy2.5 - 3.5 High (1) Intensity Therapy3.0 - 4.0 High (2) Intensity TherapyPerformed By: #### [id number] ####[facility] [address] [place], [place] [address]Housdbbynwf time (PT) Coag time (PPP)12.9 aNwmlls78.3-14.5EMH HealthcareComment on above:Performed By: #### [id number] ####[facility] [address] [place] [address] Vital Signs Date TimeVital SignValuePerforming NvhxtvajdWvvfvphl10-23-1059 09:23-0400Body tghyny460.2 cmRios Cano MD Work Phone: [phone] HospitalKghztugrmu48-47-1685 09:23-0400Body mass index (BMI) [Ratio]28.63 kg/h1FekkpmRios Cano MD Work Phone: [phone] HospitalXiyqpdscsg30-78-3251 09:23-0400Body .85 kgRios Cano MD Work Phone: [phone] HospitalEvwyqgfrwf78-97-1774 09:23-0400Diastolic blood uenfyucf81 mm[Hg]Rios Cano MD Work Phone: [phone] HospitalHlzpnxfzve36-03-2629 09:23-0400Heart rate71 /min Rios Cano MD Work Phone: [phone] HospitalTljwfmlqgb67-71-3465 09:23-0400Systolic blood ykclbqco413 mm[Hg]Rios Cano MD Work Phone: [phone] HospitalBteoduwqil10-08-4481 09:40-0400Body ktixtw227.5 cmEddie Sidhu DO Work Phone: noEllis Fischel Cancer CenterOtwohfngcr20-60-7301 09:40-0400Body mass index (BMI) [Ratio]31.09 kg/d4ZgudvEddie Sidhu DO Work Phone: noEllis Fischel Cancer CenterKqjgmulwun13-77-7285 09:40-0400Body rwiqut23.11 kgEddie Sidhu DO Work Phone: NOEllis Fischel Cancer CenterUyrpghsjeu93-07-9722 13:59-0400Body hoocas716.5 Laurence Stubbs PA Work Phone: NOEllis Fischel Cancer CenterSfwtduoyju92-01-5445 13:59-0400Body mass index (BMI) [Ratio]31.09 kg/m2Natasha Stubbs PA Work Phone: NOEllis Fischel Cancer CenterRibgumyied91-82-5872 13:59-0400Body wfigpm03.11 Paula Stubbs PA Work Phone: NOEllis Fischel Cancer CenterIklbneakmr75-61-5626 13:59-0400Diastolic blood hrijbzii09 mm[Hg]Natasha Stubbs PA Work Phone: noEllis Fischel Cancer CenterGmmxusvtaf60-44-6649 13:59-0400Heart rate77 /min Natasha Stubbs PA Work Phone: noEllis Fischel Cancer CenterPlfwnrwrey57-93-9911 13:59-0400Respiratory rate16 /minNatasha Stubbs PA Work Phone: noEllis Fischel Cancer CenterTtesgqheur92-78-6201 13:59-1864JmK5% (BldA) [Mass fraction]97 %Natasha Stubbs PA Work Phone: noEllis Fischel Cancer CenterMwlagjlkdk25-56-9519 13:59-0400Systolic blood pitpwfuz788 mm[Hg]Natasha Stubbs PA Work Phone: NOEllis Fischel Cancer CenterBujeepofyz95-21-4683 11:18-0500Body .5 Laurence Stubbs PA Work Phone: [place] [address]Lgbxwsvaea81-36-4995 11:18-0500Body mass index (BMI) [Ratio]29.45 kg/m2Natasha Stubbs PA Work Phone: [place] [address]Jmaudldvxu35-48-7014 11:18-0500Body .03 kgNatasha Stubbs PA Work Phone: [place] [address]Sgofurpojr66-11-5285 11:18-0500Diastolic blood qusiakmo51 mm[Hg]Natasha Stubbs PA Work Phone: [place] [address]Gucifudcfi62-68-2999 11:18-0500Heart rate70 /min Natasha Stubbs PA Work Phone: NOEllis Fischel Cancer CenterBaaopdacwl02-73-5652 11:18-0500Respiratory rate16 /minNatasha Stubbs PA Work Phone: NOEllis Fischel Cancer CenterDbxuynnvug55-70-0538 11:18-2695HnR3% (BldA) [Mass fraction]97 %Natasha Stubbs PA Work Phone: NOEllis Fischel Cancer CenterCsdkfpneps04-83-1036 11:18-0500Systolic blood nxgjenmq200 mm[Hg]Natasha Stubbs PA Work Phone: NOEllis Fischel Cancer CenterPllihutdru01-62-3909 09:30-0400Body cm Natasha Stubbs PA Work Phone: NOEllis Fischel Cancer CenterAbbqivmiwx89-90-7362 09:30-0400Body mass index (BMI) [Ratio]26.93 kg/m2Natasha Stubbs PA Work Phone: [facility] HospitalPlznsysqku89-78-5773 09:30-0400Body mzwlaw28.95 kgNatasha Stubbs PA Work Phone: NOEllis Fischel Cancer CenterGefqchaycx06-82-0512 09:30-0400Diastolic blood mm[Hg]Natasha Stubbs PA Work Phone: NOEllis Fischel Cancer CenterRlvwlopwrc93-32-9468 09:30-0400Heart rate62 /min Natasha Stubbs PA Work Phone: NOEllis Fischel Cancer CenterTmpqanhohx46-59-2740 09:30-0400Respiratory rate16 /minNatasha Stubbs PA Work Phone: NOEllis Fischel Cancer CenterMtlthphahw00-12-9333 09:30-1449VbG7% (BldA) [Mass fraction]95 %Natasha Stubbs PA Work Phone: NOEllis Fischel Cancer CenterNclnbopiec69-50-0347 09:30-0400Systolic blood qzfonwba641 mm[Hg]Natasha Stubbs PA Work Phone: noEllis Fischel Cancer CenterMmdxzoaxps51-79-5330 13:51-0400Blood Pressure LocationJENNIFER GUILLE [facility] [place] [address]-02-2024 13:51-0400Diastolic blood ablhbluf94 mm[Hg]MAGALIS CARABALLORY [facility]04-02-2024 13:51-0400Heart rate66 /minJENNIFER GUILLE [facility]04-02-2024 13:51-0400Respiratory rate18 /minJENNIFER GUILLE [facility]04-02-2024 13:51-0400Systolic blood wdiqjnls211 mm[Hg]MAGALIS HAN [facility]03-02-2024 13:40-0500Blood Pressure LocationFRANCISCO CHEATHAM 283-0998Mpjycr-OmcpkAdena [facility] Ello21-52-1647 13:40-0500Body cftvxxezjsw90.7 [degF]SAAD CHEATHAM 972-6407Jjijxg-EnfahAdena [facility] Zpzz33-15-0063 13:40-0500Diastolic blood ayvtczni96 mm[Hg]SAAD CHEATHAM 777-4356Ukomog-QmfgmAdena [facility] Ndqa63-82-2423 13:40-0500Heart rate82 /minFRANCISCO CHEATHAM 847-6940Xmvjvy-ZiercAdena Regional [facility] Zktp65-28-7520 13:40-0500Respiratory rate16 /minFRANCISCO CHEATHAM 386-9086Uwrcgq-OpwajAdena [facility] Pabx56-61-1844 13:40-4929TfZ5% (BldA) [Mass fraction]98 %SAAD CHEATHAM 634-1231Kghqhs-VhuagAdena Regional [facility] Boxi01-10-3986 13:40-0500Systolic blood vltduzou610 mm[Hg]SAAD CHEATHAM 163-4593Chupxr-DjinlAdena Regional [facility] Rtwq64-53-5117 13:50-0500Blood Pressure LocationJakailey Moore 870-6099Fedcrc-BbljzAdena Regional [facility] Laqg74-38-8359 13:50-0500Body .24 [degF]Clarence Moore 553-9085Qurxfp-PuwmwAdena [facility] Fbxt59-83-1620 13:50-0500Diastolic blood olxyocyn08 mm[Hg]Clarence Moore 450-9378Zuepev-NrdgwAdena [facility] Kwat80-33-8484 13:50-0500Heart rate71 /minJamie Oscar 501-3340Odnejk-CyjguAdena Regional [facility] Zdno79-50-5132 13:50-0500Respiratory rate16 /minJamie Oscar 519-6377Ibzdhe-FovspAdena Regional [facility] Fbwd15-65-1491 13:50-8116WkV1% (BldA) [Mass fraction]99 %Clarence Moore 070-2441Puanpf-PddohAdena Regional [facility] Bzel39-01-5723 13:50-0500Systolic blood ndwigvoq824 mm[Hg]Clarence Moore 980-7964Vukkhj-BrihyAdena Regional [facility] Ufjd22-84-5068 14:28-0500Body ecfkuo310.4 cmEddie Michoacano ZAMORA Work Phone: noEllis Fischel Cancer CenterRklxvoikme24-13-1548 14:28-0500Body mass index (BMI) [Ratio]29.29 kg/r5Etskm Michoacano ZAMORA Work Phone: noEllis Fischel Cancer CenterOouwqmqezj58-78-2261 14:28-0500Body temperature 97.2 [degF]Eddie Sidhu Work Phone: noEllis Fischel Cancer CenterSzmqgxgfuq07-10-2575 14:28-0500Body atiipn37.04 kgEddie Sidhu DO Work Phone: noEllis Fischel Cancer CenterQlweqtbdci77-54-2407 10:02-0400Diastolic blood mm[Hg]Dawson C Link Work Phone: mp036-8032VM-Qytum [facility] 600 DO Work Phone: [phone] 10:02-0400Diastolic blood nmhiuylz01 mm[Hg] Dawson C Link Work Phone: mp110-3519JD-WvyfcGlencoe [facility]-[place] 600 DO Work Phone: 1(667)[phone] 10:02-0400Systolic blood wdviqeej413 mm[Hg] Dawson C Link Work Phone: mp502-5539FF-NeomrGlencoe [facility]-[place] 600 DO Work Phone: 1(731)[phone]-3215 10:02-0400Systolic blood vjbevqww990 mm[Hg] Dawson C Link Work Phone: 1(612) [phone]-GovoiNew Ulm Medical Centerk 600 DO Work Phone: 1(598)[phone] 10:026 1Adam C Link Work Phone: 1(612) [phone]-CcvooPerham [facility]-[place] 600 DO Work Phone: Comment on above:WGJQlrrCud33-82-9359 10:028 1 Dawson C Link Work Phone: mp961-9824CI-QbeneGlencoe [facility] Services-[place] 600 DO Work Phone: Comment on above:FIQIdtiPn53-81-2790 09:47-0400Body azfcxv063.48 cmAdam C Link Work Phone: 1(856) [phone]-Oyjyb [facility] 600 DO Work Phone: 1(054)[phone] 09:47-0400Body mass index (BMI) [Ratio] 29.63 kg/m2Adam C Link Work Phone: 1(230) [phone]-VfkupGlencoe [facility]-[place] 600 DO Work Phone: 1(440)[phone] 09:47-0400Body surface area Derived from formula1.75 m2Adam C Link Work Phone: mp337-4896ZG-OudgqMurray County Medical Centerk 600 DO Work Phone: 1(956) 385-483706-06-2023 09:47-0400Body qftifl12.48 kgAdam C Link Work Phone: mp119-7431IQ-XtiicMurray County Medical Centerk 600 DO Work Phone: 1(376) 164-315506-06-2023 09:47-0400Diastolic blood eyrgbmyt46 mm[Hg] Dawson C Link Work Phone: mp579-9232YF-KyzeeElbow Lake Medical Centerk 600 DO Work Phone: 1(377) 618-571706-06-2023 09:47-0400Heart rate66 /minAdam C Link Work Phone: mp977-4317ZY-TgswiGlencoe Regional Health Services 600 DO Work Phone: 1(712) 526-288306-06-2023 09:47-0400Systolic blood mm[Hg] Dawson C Link Work Phone: mp436-2057PF-FpwsuGlencoe Regional Health Services 600 DO Work Phone: 1(388) 842-181705-11-2023 13:42-0400Diastolic blood pwnycbjr39 mm[Hg] Darinel Quiñonez [facility]05-11-2023 13:42-0400Heart rate67 /Rylee Quiñonez [facility]05-11-2023 13:42-0400 Respiratory rate14 /minDarinel Quiñonez [address] [place], [place] [address]1105-11-2023 13:42-1440XrU6% (BldA) [Mass fraction]99 %Darinel Quiñonez [facility]05-11-2023 13:42-0400 Systolic blood wevwmdpe713 mm[Hg]Darinel Quiñonez [facility]05-11-2023 12:58-0400Body bocufxkfugp39.06 [degF]Darinel Quiñonez [address]05-11-2023 12:58-0400 Diastolic blood tqvnzaxt22 mm[Hg]Darinel Quiñonez [address]05-11-2023 12:58-0400Heart rate70 /minDarinel Quiñonez [address]05-11-2023 12:58-0400 Respiratory rate14 /minDarinel Quiñonez [address] [place], [place] [address]05-11-2023 12:58-5502CvI3% (BldA) [Mass fraction]99 %Darinel Quiñonez [address] [place], [place] [address]05-11-2023 12:58-0400 Systolic blood kspegari702 mm[Hg]Darinel Quiñonez [address] [place], [place] [address]05-11-2023 12:42-0400Body mwsmvnujuof22.42 [degF]Darinel Quiñonez [address] [place], [place] [address]05-11-2023 12:42-0400 Diastolic blood gttgaeus56 mm[Hg]Darinel Quiñonez [address]05-11-2023 12:42-0400Heart rate74 /malihaDarinel Quiñonez [address]05-11-2023 12:42-0400 Respiratory rate18 /minDarinel Quiñonez [address] [place], [place] [address]84[address]5-11-2023 12:42-1371OiL1% (BldA) [Mass fraction]99 %Darinel Quiñonez [address] [place], [place] [address]84[address]5-11-2023 12:42-0400 Systolic blood isvrdpyw858 mm[Hg]Darinel Quiñonez [address]06-07-2022 10:08-0400Body qigyut034.48 cmAdam C Link Work Phone: 1([phone]-RyyffN[place] [address] DO Work Phone: 1(130) 131-980806-07-2022 10:08-0400Body mass index (BMI) [Ratio] 32.01 kg/m2Adam C Link Work Phone: 1(316) [phone]-IpbcxRedwood LLCwalk 600 DO Work Phone: 1(829) 608-594906-07-2022 10:08-0400Body surface area Derived from formula1.81 m2Adam C Link Work Phone: 1(884) [phone]-KmlorMelrose Area Hospital 600 DO Work Phone: 1(108) 727-181106-07-2022 10:08-0400Body ygurec17.38 kgAdam C Link Work Phone: 1(282) [phone]-PrwocMelrose Area Hospital 600 DO Work Phone: 1(380) 860-502506-07-2022 10:08-0400Diastolic blood wcbqquvf05 mm[Hg] Dawson C Link Work Phone: 1(573) [phone]-JeghhMelrose Area Hospital 600 DO Work Phone: 1(130)[phone] 10:08-0400Heart rate66 /minAdam C Link Work Phone: 1(472) [phone]-TywnzMelrose Area Hospital 600 DO Work Phone: 1(177) 515-754806-07-2022 10:08-0400Systolic blood nmuziiow770 mm[Hg] Dawson C Link Work Phone: 1(744) [phone]-MxfndMelrose Area Hospital 600 DO Work Phone: 1(960)[phone] 13:00-0400Hourly RoundingMountainstar Healthcarejusta [facility]03-22-2022 13:00-0400Promise to ReturnMountainstar Healthcarejusta [facility]03-22-2022 10:10-0400Diastolic blood pwbuhejn62 mm[Hg]Mountain[facility] Healthcarejusta [facility]03-22-2022 10:10-0400Heart rate69 /minAhVeterans Health Administration03-22-2022 10:10-0400Mean blood awwlqevf98 mm[Hg][facility]03-22-2022 10:10-0400Respiratory rate17 /[facility]03-22-2022 10:10-0400Systolic blood gglctozn155 mm[Hg][facility]03-22-2022 08:00-9419PrW0% (BldA) [Mass fraction]81 %[facility]03-22-2022 07:25-0400 Blood Pressure LocationPremier Health03-22-2022 07:25-0400Body tnymmgkcbfx81.52 [degF][facility]03-22-2022 07:25-0400BP/Pulse Patient PositionPremier Health03-22-2022 07:25-0400Diastolic blood patqmwdz02 mm[Hg][facility]03-22-2022 07:25-0400Heart rate69 /[facility]03-22-2022 07:25-0400Mean blood njwicxvk94 mm[Hg][facility]03-22-2022 07:25-0400 Respiratory rate17 /[facility]03-22-2022 07:25-6469WeX0% (BldA) [Mass fraction]98 %[facility]03-22-2022 07:25-0400Systolic blood qveikirw229 mm[Hg][facility]03-22-2022 04:00-0400Blood Pressure LocationPrem[facility] Health03-22-2022 04:00-0400BP/Pulse Patient PositionPremier Health03-22-2022 04:00-0400 Diastolic blood tpejmifk90 mm[Hg][facility] 06-26-2021 04:00-0400Heart rate59 /minPrem[facility] Health03-22-2022 04:00-0400Mean blood lloxvvgv86 mm[Hg][facility]03-22-2022 04:00-0400Respiratory rate16 /minSt. [facility]03-22-2022 04:00-4585KmG3% (BldA) [Mass fraction]96 %[facility]03-22-2022 04:00-0400Systolic blood ghdkzjhu147 mm[Hg][facility]03-22-2022 00:25-0400Blood Pressure LocationPremier Health 06-26-2021 00:25-0400Body hqiddnzemrt50.7 [degF][facility]03-22-2022 00:25-0400Heart rate65 /minPrem[facility]03-22-2022 00:25-0400Mean blood lanzcons00 mm[Hg][facility]03-21-2022 19:00-0400BP/Pulse Patient PositionPremier Health03-21-2022 19:00-0400Heart rate67 /min [facility]03-21-2022 19:00-0400Mean blood mm[Hg][facility]03-21-2022 18:00-0400Heart rate58 /minPrem[facility]03-21-2022 18:00-0400Respiratory rate18 /minPrem[facility] 06-25-2021 15:40-1355opgu02 mg/dLPremier Health 06-25-2021 15:40-0400glucAhmad [facility]10-28-2021 11:15-0400Body byzsex209.94 cmThomas Olexa Other [facility] Other 10-28-2021 11:15-0400Body mass index (BMI) [Ratio] 32.99 kg/h7Qenehn Olexa Other [employer] Other 10-28-2021 11:15-0400Body .2 kgThomas Olexa Other [employer] Other Encounters Encounter DateEncounter TypeCare ProviderFacilityStart: 01-31-2025 End: 77-33-9011Sarrlx Irene Cano MD Work Phone: noms [place] OtolaryngologyStart: 01-31-2025 End: 01-24-4863Exusnz Irene Cano MD Work Phone: noms [place] OtolaryngologyStart: 01-31-2025 End: 98-24-1240Sralaf outpatient new 45 minutesRios Cano MD Work Phone: noms [place] OtolaryngologyComment on above:Chronic laryngitis (Primary Dx); LPRD (laryngopharyngeal reflux disease); HoarseStart: 01-31-2025 End: 58-86-4484vttthuydqxGUNIEI H TIMMISNot AvailableStart: 01-14-2025 End: 99-65-9812xcpaefzhpcOec D BrowneFacility:FTMCStart: 01-11-2025 End: 84-95-6749hzppcxuqeoJtfxhp J GaleaFacility:EU NorwalkStart: 01-11-2025 End: 64-25-4631Mhejjmv encounter procedureVee Sutherland [facility] Start: 11-16-2024 End: 62-00-9760yruzcgmytbTAPMercy Health [facility] Work Phone: Start: 11-16-2024 End: 43-42-2218Qnczwpt encounter procedureNicmarcie Villaseñorsten P [facility] Work Phone: Start: 11-11-2024 End: 49-08-6671nlrsphhuzgFBVSelect Medical Specialty [facility] Work Phone: Start: 11-11-2024 End: 00-83-2610Qoixywt encounter procedureNicmarcie Neumannbesten P [facility] Work Phone: Start: 11-08-2024 End: 96-88-9029iftkypwiayYAQMercy Health St[facility] Work Phone: Start: 11-08-2024 End: 60-83-4198Gznrkqf encounter procedureNicbolaas Thienbesten P [facility] Work Phone: Start: 11-08-2024 End: 21-73-3628qwpxjgfyykMCOMercy Health St[facility] Work Phone: Start: 11-08-2024 End: 70-81-8110Hfouatt encounter procedureNicholas Thienbesten P [facility] Work Phone: Start: 07-26-2024 End: 83-39-3974Fnhdqqg encounter José Luis Sidhu DO Work Phone: NORL NB ORTHOComment on above:Left shoulder pain, unspecified chronicity (Primary Dx)Start: 07-26-2024 End: 72-62-4386htowqqgcfoZANRC A BROWNNot AvailableStart: 07-26-2024 End: 52-86-9820stednlfuxnZKFUQ A BROWNNot AvailableStart: 07-15-2024 End: 54-00-7718bhyvicezmcIrm D BrowneFacility:FTMCStart: 07-07-2024 End: 28-05-9083Yagavq Nanci PRADO Work Phone: aNA NIKUSKYStart: 07-07-2024 End: 84-43-8188Cdobvd Nanci Stubbs PA Work Phone: ANA SANDUSKYStart: 07-07-2024 End: 38-31-8930Qhhbbv outpatient visit 25 minutesNatasha PRADO Work Phone: aNA NIKUSKYComment on above:Primary progressive aphasia (CMS/HCC) (Primary Dx); Frontotemporal dementia; History of TIA (transient ischemic attack)Start: 07-07-2024 End: 91-42-5412dydljfyeugQKLN HILLNot AvailableStart: 06-25-2024 End: 55-13-5404Thpzxzron department patient visitUrmila BuenoFacility:[facility] Start: 05-14-2024 End: 55-39-4376Gceknj Rand Rodarte DO Work Phone: NOMS NB OPHTStart: 05-14-2024 End: 45-27-0351Azajpd flowsheetJonathan D Zoyahler DO Work Phone: NOMS NB OPHTStart: 05-14-2024 End: 63-39-7603rwxkefxrjdGYXZKRSB D CAYDENNot AvailableStart: 05-10-2024 End: 78-01-7369hpkkeovbguYqu D BrowneFacility:FTMCStart: 02-10-2024 End: 74-18-2313Ndqsyk Nanci PRADO Work Phone: NOMS NE NEUROStart: 02-10-2024 End: 91-19-5386Xxhcwu Nanci PRADO Work Phone: NOMS NE NEUROStart: 02-10-2024 End: 08-00-9945Gbggcq outpatient visit 25 minutesNatasha PRADO Work Phone: NOMS NE NEUROComment on above:Primary progressive aphasia (CMS/HCC) (Primary Dx); History of TIA (transient ischemic attack)Start: 02-10-2024 End: 66-79-7038ddsbrynsqvIYVH HILLNot AvailableStart: 73-79-7066fivqwilsmv Adán CabaFacility:FTMCStart: 12-15-2023 End: 24-55-4623fnugcerinnWqjudy J GaleaFacility:EU kStart: 12-15-2023 End: 52-20-3722Eilejit encounter procedureVee Sutherland [facility] Start: 12-11-2023 End: 75-98-9727Uoyxxe Nanci PRADO Work Phone: noms [place] [address]Start: 12-11-2023 End: 49-27-0208Ndpbuj Nanci PRADO Work Phone: noms [place] [address]TEStart: 12-11-2023 End: 90-28-1023Anupwy outpatient visit 25 [facility] hospitalBellaoj PRADO Work Phone: noms [address] R[address]TEComment on above:Primary progressive aphasia (CMS/HCC) (Primary Dx); Frontotemporal dementia (CMS/HCC); History of TIA (transient ischemic attack); Word finding difficultyStart: 12-10-2023 End: 37-48-5372jozmziwetyPgwkban P COOKFacility:EU tart: 12-10-2023 End: 27-27-0848Nfajfci encounter procedureGregteja SINGH [facility] Start: 11-26-2023 End: 99-19-5548Mxxhmoe encounter procedureChris Falk PhD Work Phone: noms ST NEUROLOGYComment on above:Primary progressive aphasia (CMS/HCC) (Primary Dx); Memory loss; Word finding difficulty; History of TIA (transient ischemic attack); AnxietyStart: 10-21-2023 End: 03-26-5946tjhpnlazuoKohqyb BenedictFacility:FTMCStart: 10-21-2023 End: 96-44-6566Tzofnwg encounter procedureSteven Donie [facility] Start: 09-18-2023 End: 94-54-0869Clotocy encounter procedureNitin Mayra SINGH [facility] Start: 09-12-2023 End: 59-49-0191Ueeltth encounter Mehdi Oakes [facility] Start: 09-08-2023 End: 87-68-0705Fuknsht encounter procedureGregteja Nunez NAIMA [facility] Start: 08-29-2023 End: 01-06-5449Eno Drop offJason Kale Sidhu [facility] Start: 07-22-2023 End: 71-86-0465Vucgmrckf Result EncounterJason Kale Sidhu DO Work Phone: noms External Department UnsolicitedStart: 07-22-2023 End: 96-87-3084Dmueucdoo Result EncounterJason A Brown DO Work Phone: noms External Department UnsolicitedStart: 07-22-2023 End: 66-15-6336Dznbarq encounter procedureJENNIFER E GUILLE [facility] Start: 07-08-2023 End: 81-81-4205Wac Drop offJENNIFER E GUILLE [facility] Start: 07-08-2023 End: 30-20-4630Lqkpfpx encounter procedureJENILTONLUKE HAN [facility] Mary start: 06-07-2023 End: 96-17-7973Sihuvkd encounter procedureFRMAXIMJESSE CHEATHAM 486-1253Fajooz-FgtqtAdena Regional [facility] Start: 06-04-2023 End: 81-29-6666Lavzdul encounter procedureBrookeoj AlbaObdulio Mouraey 691-0418Yqfshf-HrxewAdena Regional Medical Center [facility] Start: 99-22-8740Rrikm abstractingEddie Sidhu DO Work Phone: noms NB ORTHOStart: 05-08-2023 End: 49-03-6289Drqewr-up encounterEddie Sidhu DO Work Phone: noms NB ORTHOStart: 10-11-2022 End: 47-96-5882Rlyxynf encounter procedureSELF REFERRALParkwood Hospital Start: 44-36-0706bkdygnmzclItObdulio Centeno [facility] Facility:54910Dthsm: 24-86-4034Drfndo outpatient visit 25 minutesAdam C Link Work Phone: 1(584) [phone]-CzcvdMelrose Area Hospital 600 DO Work Phone: Start: 08-15-2022 End: 34-80-1774Pyfygwncf department patient visitDarinel Quiñonez [facility] Start: 96-93-1367Yvhisu outpatient visit 15 minutes Magalis Avendano OrthopedicsStart: 07-16-2022 End: 04-40-0707osohngayeqNcgkph OlexaFacility:[facility] Start: 07-16-2022 End: 80-54-8021pxeykfcpfxKD Avel Olexa Work Phone: [facility] Work Phone: Start: 07-16-2022 End: 79-63-4361Rojygtr encounter procedureMD Avel Werner Work Phone: [facility] Start: 46-27-7736Fskazx outpatient visit 15 minutesAdam C Link Work Phone: [phone]) [phone]-Tkenu [facility] 600 DO Work Phone: Start: 08-16-2021 End: 56-28-1546Eyefari encounter procedureAdam C Link [facility] Start: 06-25-2021 End: 58-60-9026BtrdaeokwkuUskcr [facility] Start: 10-85-8134Zp Kelly Salas MD Work Phone: [phone]-Ibhqj [facility] 250 DO Work Phone: Start: 15-74-8680Qcjxij outpatient visit 15 minutes Avel WernerRILEY [facility] OrthopedicsStart: 01-25-2020 End: 24-92-3547Bofsrzm encounter procedureKIMBERLY CULLENFacility:P1Osyie: 01-13-2020 End: 98-75-1786Otngvhu encounter procedureKIMBERLY CULLENFacility:Y7Weeso: 12-04-2016 End: 29-89-6243RdngrrdkfaDVNQKM D MOSTELLERFacility:[facility] SYSTEMSStart: 48-47-0996UfelrrozpnKLWBPSY P MCGUINNFacility:1532Start: 11-06-2016 End: 56-85-8802XollgkhafwLEWD QUANFacility:[facility] SYSTEMSStart: 76-87-9059FwjwhumsfaOLFACD D MOSTELLERFacility:1533 Procedures DateProcedureProcedure DetailPerforming ClinicianStart: 07-26-2024 End: 29-80-0664Lhkyqvblyzvuaj aspir&/inj major jt/bursa w/Eddie Sidhu DO Work Phone: Start: 08-05-0348Indng shoulder complete minimum 2 viewsEddie Sidhu DO Work Phone: Start: 05-14-2024 End: 77-64-2748Oppwy medical xm&eval comprhnsv estab pt 1/>Dry eyesJonatnarciso Rodarte DO Work Phone: comment on above:Dry eyes (Primary Dx); Blepharitis of upper and lower eyelids of both eyes, unspecified typeStart: 39-38-8446JP CHEST 2 VIEWSEddie Sidhu DO Work Phone: Start: 77-23-0969Robps X-ray of right shoulderMD Avel Olexa Work Phone: Start: 78-89-8621Xfbpfwry of urethraJENNIFER GUILLE Start: 47-78-5109Wqxvgbszf of botulinum toxin type A into detrusor muscle of urinary bladderJENNIFER GUILLE Start: 78-99-7236Vkmwmmgrd of botulinum toxin type A into detrusor muscle of urinary bladderJENNIFER GUILLE Start: 27-69-2942Cdlrvrtzdevubbztq with dilation of urethral strictureAhmad MoussawiStart: 13-92-3045Oboptflnlsiaktqsu with dilation of urethral strictureAhmad MoussawiArthroplasty of kneeAhmad Moussawi Arthroplasty of kneeAdam C Link Work Phone: comment on above:Total knee replacement (left and right);bilat bunionectomyAhmad MoussawiFoot structure (body structure)Ahmad MoussawiH/O: artificial jointThomas Olexa Other HysterectomyAhmad MoussawiHysterectomyAdam C Link Work Phone: Operative procedure on footAdam C Link Work Phone: repair of musculotendinous cuff of shoulderAdam C Link Work Phone: right hammer toe repairAhmad MoussawiRotator cuff including muscles and tendons (body structure)Ahmad MoussawiRuptured tendon left foot s/p repair on june 09hmad MoussawiTotal colonoscopyAdam C Link Work Phone: Plan of Treatment DateCare ActivityDetailAuthorStart: 05-18-2025 End: 64-89-9650Gunhequ encounter procedureNOSAINT JOHN'S [facility]INT [facility] OPHTStart: 01-31-2025 End: 04-34-4155Rikxigv encounter ideezziks19/27/2025 9:20 AM EDT Office Visit [facility] [address] [place] [address] Rios Cano MD [address] [facility] [address] [place] [address] ArrivedNOWI Westwood OtolaryngologyComment on above:ArrivedStart: 62-55-0230Tofibfcfi vaccinationNOWI HealthcareStart: 11-23-2024 End: 22-13-3016Klpcseq encounter djhxingwj23/19/2025 11:00 AM EDT Office Visit МАРИЯ AVENDANO Abelardo [address] [address] Natsaha Stubbs PA [address] [place] [address] МАРИЯ ZARAGOZAUSKYStart: 11-15-2024 End: 88-88-1057Skjsrvm encounter tsrmizqum65/11/2025 12:30 PM EDT Office Visit МАРИЯ AVENDANO Abelardo [address] [facility] [address] [place] [address] aNA SANDUSKYStart: 11-08-2024 End: 31-88-8388Invitom encounter /04/2025 11:00 AM EDT Office Visit МАРИЯ AVENDANO Abelardo [address] [facility] [address] [place] [address] Chris Falk, PhD [address] [place] [address] МАРИЯ VELASCOYStart: 07-07-2024 End: 75-61-8031Vyumxcl encounter procedureМАРИЯ ZARAGOZAUSKYComment on above:Arrived Start: 06-14-2024 End: 24-30-4271Qgskmbu encounter dvjyvmcgr76/10/2025 11:00 AM EDT Office Visit [facility] [address] [place] [id number] Natasha Stubbs PA [address] [place], [place] [id number] [facility] NE NEUROStart: 05-14-2024 End: 20-77-1525Cqvfehq encounter gkuqhdjbx66/07/2025 10:15 AM EST Office Visit [facility] [address] [place] [id number] Oumou Rodarte, DO [address] [place] [address] ArrivedNOMS NB OPHTComment on above:ArrivedStart: 02-10-2024 End: 59-40-7477Ahgehtr encounter procedureNOMS NE NEUROComment on above:Arrived Start: 12-11-2023 End: 32-96-1867Xundnrs encounter procedureNOMS [place] STATE ROUTEComment on above:ArrivedStart: 64-71-3489Wdvswgdlv vaccinationInfluenza Vaccine (#1)[facility] HealthcareStart: 11-43-5048GFO, Provider: Roldan Salas, Status: Pen, Time: 10:40 AMFUV, Provider: Roldan Salas, Status: Pen, Time: 10:40 AM-[facility] 600 DO Work Phone: Start: 01-71-5136BQE, Provider: Roldan Salas, Status: Pen, Time: 9:00 AMFUV, Provider: Roldan Salas, Status: Pen, Time: 9:00 AM[facility] 600 DO Work Phone: Start: 50-67-6909RST, Provider: Roldan Salas, Status: Pen, Time: 10:00 AMFUV, Provider: Roldan Salas, Status: Pen, Time: 10:00 AM[facility] DO Work Phone: Start: 82-47-5194Apdmagpsiazz Vaccine: 65+ Years (2 - PPSV23 or PCV20)Pneumococcal Vaccine: 65+ Years (2 - PPSV23 or PCV20)[facility] HealthcareStart: 43-32-3898Tbrzknmrhjps Vaccine: 65+ Years (2 of 2 - PCV20 or PCV21)Pneumococcal Vaccine: 65+ Years (2 of 2 - PCV20 or PCV21)[facility] Start: 27-71-1217Qfnbtukfoxkr Vaccine: 65+ Years (2 of 2 - PPSV23 or PCV20) Pneumococcal Vaccine: 65+ Years (2 of 2 - PPSV23 or PCV20)[facility] HealthcareStart: 58-84-1413Jtjemtqckbpk Vaccine: 65+ Years (2 of 2 - PPSV23)Pneumococcal Vaccine: 65+ Years (2 of 2 - PPSV23)[facility] Immunizations Immunization DateImmunizationNotesCare FywgzkdlEoljnsoz46-56-4951wirnlurjc virus vaccine, unspecified formulationClarence Moore [phone]-PwbnpAdena [facility] Vwno66-12-8132 Influenza, High-dose Seasonal, Quadrivalent, Preservative Gio Falk PhD Work Phone: [facility] HospitalThhbbanimv23-45-2394hnvpxnp toxoid, reduced diphtheria toxoid, and acellular pertussis vaccine, Farshad Quiñonez [facility]10-12-2022Fluzone High- Dose Quadrivalent 0.7 ML Intramuscular Suspension Prefilled SyringeAdam C Link Work Phone: [phone]-CgmvhMelrose Area Hospital 600 DO Work Phone: [phone] virus vaccine, unspecified formulationJamie Oscar [phone]-ZqoamAdena Regional Medical Center [facility] Jpsm33-60-4393 Pfizer COVID-19 Vac Bivalent 30 MCG/0.3ML Intramuscular SuspensionAdam C Link Work Phone: [phone]-CdqeuAdena Regional Medical Center [facility] Fudh06-40-9503 Moderna COVID-19 Vaccine 100 MCG/0.5ML Intramuscular SuspensionAdam C Link Work Phone: [phone]-RtcdrAdena Regional Medical Center [facility] Pqth96-15-3617 Kenalog -40 mgThomas Olexa Other [facility] Other 10617060-47-8038daezivyhf virus vaccine, unspecified formulationJamie Oscar [phone]-DndrjAdena Regional Medical [facility] Cicv95-29-4177 influenza, high dose seasonal, preservative-freeAdam C Link Work Phone: [phone]-AkbemMelrose Area Hospital 600 DO Work Phone: [phone] COVID-19 Vaccine 100 MCG/0.5ML Intramuscular SuspensionAdam C Link Work Phone: [phone]-JycccAdena [facility] Nnqc58-14-6876 COVID-19, mRNA, LNP-S, PF, 100 mcg or 50 mcg dose; Translations: [Moderna COVID- 19 Vaccine][facility]ier HealthComment on above: Early/Late Reason: Early/Late Reason: Nursing Pgplzpgq75-01-5272ZDRZB-20, mRNA, LNP-S, PF, 100 mcg or 50 mcg dose; Translations: [Moderna COVID-19 Vaccine]Premier HealthComment on above:Early/Late Reason: Early/Late Reason: Other : ioexfs55-25-7256Snmsppp -40 mgThomas Olexa Other [facility] Other 10215130-19-5973mowpynvre virus vaccine, unspecified formulationJamie Oscar [phone]-StqpyAdena Regional Medical Center [facility] Canx72-38-1356 influenza, seasonal, injectableAdam C Link Work Phone: [phone]-TemdgMelrose Area Hospital 600 DO Work Phone: [phone] virus vaccine, unspecified formulationJamie Oscar [phone]-XotqiAdena Regional Medical Center [facility] Mtyi34-08-6176 influenza, seasonal, injectable, preservative freeAdam C Link Work Phone: [phone]-KczbiJohn Ville [address] DO Work Phone: [phone] vaccine recombinantAdam C Link Work Phone: [phone]-Lfzbu[address] [place] [address] [facility] Htvr08-01-8729 influenza virus vaccine, live, attenuated, for intranasal useMurali Ceja [facility]10-22-2019influenza virus vaccine, unspecified formulationJamie Oscar [phone]-EtgjaAdena Regional Medical Center [facility] Elul25-25-1490 influenza, high dose seasonal, preservative-freeAdam C Link Work Phone: [phone]-DjvqyJohn [place]ille [address] DO Work Phone: [phone] vaccine recombinantAdam C Link Work Phone: [phone]-Tdpae[address] [place] [address] [facility] Coqz40-17-0718 influenza virus vaccine, unspecified formulationJamie Oscar [phone]-MjxvsAdena Regional Medical [facility] Hzbo34-64-8962 influenza, seasonal, injectableAdam C Link Work Phone: [phone]-WnhrcMelrose Area Hospital 600 DO Work Phone: [phone] 218-53041183703-04-2618ulyejcang virus vaccine, unspecified formulationJamie Oscar [phone]-UlyyhAdena Regional Medical Center [facility] Tlml62-01-2605 influenza, high dose seasonal, preservative-freeAdam C Link Work Phone: [phone]-LktrgGlencoe [facility] 600 DO Work Phone: [phone]zsz conjugate vaccine, 13 valent Dawson C Link Work Phone: [phone]-SjxpfAdena Regional [facility] Blue91-03-6774 influenza virus vaccine, unspecified formulationJamie Oscar [phone]-UtgtyAdena Regional Medical Center [facility] Gdfm12-91-4216 influenza, high dose seasonal, preservative-freeAdam C Link Work Phone: [phone]-QncjqGlencoe Regional [facility] Services 600 DO Work Phone: [phone] virus vaccine, unspecified formulationJamie [employer] [phone]-IyfoxAdena Regional Medical Center [facility] Sbtt21-25-6626 influenza, seasonal, injectableAdam C Link Work Phone: [phone]-HetunGlencoe Regional Health Services 600 DO Work Phone: [phone]wlnyc virus vaccine, unspecified formulationJamie [employer] [phone]-KdwgnAdena Regional Medical Center [facility] Vubk75-75-9618 influenza, seasonal, injectableAdam C Link Work Phone: [phone]-MfeznGlencoe Regional Health Services 600 DO Work Phone: Payers DatePayer CategoryPayerPolicy [id number] 2023MedicaidAETNA MEDICARE ADVANTAGE [id number] 2023Medicare [id number] Health Insurance [id number] Health CgxranbgwA[id number] 2.840.1.407841.3.57[id number] 2.840.1.045495.3.579.[id number] 2.840.1.817352.3.57[id number] 2.840.1.825664.3.57[id number] 2.840.1.128775.3.57[id number] 2.16840.1.765878.3.579.[id number] 2.16840.1.921868.3.57[id number] 2.16840.1.676355.3.57[id number] 2.16840.1.719739.3.57[id number] 2.16840.1.146244.3.57[id number] 2.840.1.363175.3.57[id number] 2.16.840.1.858927.3.57[id number] 2.16.840.1.357673.3.579.2.543131-30-8610Avmqiys5454136 2.16.840.1.674719.3.579.2.150166-90-8202Hyynidm8389490 2.16.840.1.975612.3.579.2.103125-33-4259Iqrxhio7635686 2.16.840.1.327014.3.579.2.233639-87-1517Rmukvzj4661307 2.16.840.1.707204.3.579.2.5[id number] 2.16.840.1.311525.3.579.2.531 Social History DateTypeDetailFacilityStart: 02-24-2020 End: 62-81-2138Qkpvbvq smoking statusNever smoked tobacco (finding)[facility] Other Start: 21-24-4297Vktnvgs smoking statusNeverFishMercy Health Clermont Hospital CenterStart: 04-07-2023 End: 67-87-1161Vyv Assigned At [facility] Other Start: 04-07-2023 End: 77-17-5901Pkhnlfh useAlcohol useJohn Ville [address] DO Work Phone: Start: 00-32-9512Srg [facility]igned At [facility] Northtart: 09-46-1901Kljyezh use and exposureSmokeless tobacco non-userNOMS HealthcareStart: 05-08-2023 End: 06-50-7486Ovvdoli intakeCurrent drinker of alcohol (finding)[facility] How often to you have a drink containing alcohol?Monthly or lessN[facility]S Healthcare How many standard drinks containing alcohol do you have on a typical day?1 or 2 [facility] HealthcareHow often do you have 6 or more drinks on 1 occasion?NeverNOMS HealthcareStart: 29-43-9357Teu Assigned At BirthNot on fileNOWI HealthcareStart: 99-57-5822PpvRkpkxx (finding)[facility] Hospitalex[facility] O[facility] Functional Status ZjkfYzwvhbdwjcMngvylDoiaeisp61-68-1527Rzlerajmsg StatusN/AExec[facility]06-13-2024Functional StatusN/[facility]04-02-2024Functional StatusN/AExec[facility] of [facility]03-02-2024Functional StatusN/[facility] Zvbv72-93-9063Ypkgxxaaqu StatusN/[facility] Mgha88-60-5597Wqamwuxelh StatusN/[facility] Clinical Notes 02-01-2021 to 01-31-2025 Note Date & AwtoVpiyDujsrwks32-90-0309 History of Present illness Narrative* Rios Cano MD - 01/31/2025 9:20 AM EDT Images from the original note were not included. Subjective Patient ID: Shima Michele is a 84 y.o. female who presents [...] regular rate and rhythm; Patient ID: Shima Michele is a 84 y.o. female. Procedures A [...] Bilateral 2005 SHOULDER SURGERY Left 08/29/2023 E/O [facility] JAB TONSILLECTOMY 1950 TOTAL KNEE ARTHROPLASTY Bilateral [...] file prior to visit. documented in this encounterUniversity HospitalOrtmywlnee21-77-9185 Hospital Discharge instructions Patient Education 01/11/2025 15:30:36 Overactive Bladder, Adult Overactive Bladder, Adult Overactive bladder is a condition in which a person has a sudden and frequent need to urinate. A person might also leak urine if he or she cannot get to the bathroom fast enough (urinary incontinence). Sometimes, symptoms can interfere with work or social activities. What are the causes? Overactive bladder is associated with poor nerve signals between your bladder and your brain. Your bladder may get the signal to empty before it is full. You may also have very sensitive muscles thatmake your bladder squeeze too soon. This condition may also be caused by other factors, such as: Medical conditions: ?Urinary tract infection. ?Infection of nearby tissues. ?Prostate enlargement. ?Bladder stones, inflammation, or tumors. ?Diabetes. ?Muscle or nerve weakness, especially from these conditions: ?A spinal cord injury. ?Stroke. ?Multiple sclerosis. ?Parkinson's disease. Other causes: ?Surgery on the uterus or urethra. ?Drinking too much caffeine or alcohol. ?Certain medicines, especially those that eliminate extra fluid in the body (diuretics). ?Constipation. What increases the risk? You may be at greater risk for overactive bladder if you: Are an older adult. Smoke. Are going through menopause. Have prostate problems. Have a neurological disease, such as stroke, dementia, Parkinson's disease, or multiple sclerosis (MS). Eat or drink alcohol, spicy food, caffeine, and other things that irritate the bladder. Are overweight or obese. What are the signs or symptoms? Symptoms of this condition include a sudden, strong urge to urinate. Other symptoms include: Leaking urine. Urinating 8 or more times a day. Waking up to urinate 2 or more times overnight. How is this diagnosed? This condition may be diagnosed based on: Your symptoms and medical history. A physical exam. Blood or urine tests to check for possible causes, such as infection. You may also need to see a health care provider who specializes in urinary tract problems. This is called a urologist. How is this treated? Treatment for overactive bladder depends on the cause of your condition and whether it is mild or severe. Treatment may include: Bladder training, such as: ?Learning to control the urge to urinate by following a schedule to urinate at regular intervals. ?Doing Kegel exercises to strengthen the pelvic floor muscles that support your bladder. Special devices, such as: ?Biofeedback. This uses sensors to help you become aware of your body's signals. ?Electrical stimulation. This uses electrodes placed inside the body (implanted) or outside the body. These electrodes send gentle pulses of electricity to strengthen the nerves or muscles that control the bladder. ?Women may use a plastic device, called a pessary, that fits into the vagina and supports the bladder. Medicines, such as: ?Antibiotics to treat bladder infection. ?Antispasmodics to stop the bladder from releasing urine at the wrong time. ?Tricyclic antidepressants to relax bladder muscles. ?Injections of botulinum toxin type A directly into the bladder tissue to relax bladder muscles. Surgery, such as: ?A device may be implanted to help manage the nerve signals that control urination. ?An electrode may be implanted to stimulate electrical signals in the bladder. ?A procedure may be done to change the shape of the bladder. This is done only in very severe cases. Follow these instructions at home: Eating and drinking Make diet or lifestyle changes recommended by your health care provider. These may include: ?Drinking fluids throughout the day and not only with meals. ?Cutting down on caffeine or alcohol. ?Eating a healthy and balanced diet to prevent constipation. This may include: ?Choosing foods that are high in fiber, such as beans, whole grains, and fresh fruits and vegetables. ?Limiting foods that are high in fat and processed sugars, such as fried and sweet foods. Lifestyle Lose weight if needed. Do not use any products that contain nicotine or tobacco. These include cigarettes, chewing tobacco, and vaping devices, such as e-cigarettes. If you need help quitting, ask your health care provider. General instructions Take srvk-xoj-xnmudpe and prescription medicines only as told by your health care provider. If you were prescribed an antibiotic medicine, take it as told by your health care provider. Do notstop taking the antibiotic even if you start to feel better. Use any implants or pessary as told by your health care provider. If needed, wear pads to absorb urine leakage. Keep a log to track how much and when you drink, and when you need to urinate. This will help your health care provider monitor your condition. Keep all follow-up visits. This is important. Contact a health care provider if: You have a fever or chills. Your symptoms do not get better with treatment. Your pain and discomfort get worse. You have more frequent urges to urinate. Get help right away if: You are not able to control your bladder. Summary Overactive bladder refers to a condition in which a person has a sudden and frequent need to urinate. Several conditions may lead to an overactive bladder. Treatment for overactive bladder depends on the cause and severity of your condition. Making lifestyle changes, doing Kegel exercises, keeping a log, and taking medicines can help with this condition. This information is not intended to replace advice given to you by your health care provider. Make sure you discuss any questions you have with your health care provider. Document Revised: 12/11/2020 Document Reviewed: 12/11/2020 [employer] Patient Education 2023 [employer] Follow Up Care 01/04/2025 10:48:43 With:NAIMA VACA, Nitin Nunez, URL Address: [address] [address]- When: Unknown Comments:pt to call to schedule next round of Botox when needed [facility] 10-07-2025 NotePatient Education Obstetrics and Gynecology Overactive Bladder, Adult Overactive bladder is a condition in which a person has a sudden and frequent need to urinate. A person might also leak urine if he or she cannot get to the bathroom fast enough (urinary incontinence). Sometimes, symptoms can interfere with work or social activities. What are the causes? Overactive bladder is associated with poor nerve signals between your bladder and your brain. Your bladder may get the signal to empty before it is full. You may also have very sensitive muscles thatmake your bladder squeeze too soon. This condition may also be caused by other factors, such as: ??? Medical conditions: ? Urinary tract infection. ? Infection of nearby tissues. ? Prostate enlargement. ? Bladder stones, inflammation, or tumors. ? Diabetes. ? Muscle or nerve weakness, especially from these conditions: ? A spinal cord injury. ? Stroke. ? Multiple sclerosis. ? Parkinson's disease. ??? Other causes: ? Surgery on the uterus or urethra. ? Drinking too much caffeine or alcohol. ? Certain medicines, especially those that eliminate extra fluid in the body (diuretics). ? Constipation. What increases the risk? You may be at greater risk for overactive bladder if you: ??? Are an older adult. ??? Smoke. ??? Are going through menopause. ??? Have prostate problems. ??? Have a neurological disease, such as stroke, dementia, Parkinson's disease, or multiple sclerosis (MS). ??? Eat or drink alcohol, spicy food, caffeine, and other things that irritate the bladder. ??? Are overweight or obese. What are the signs or symptoms? Symptoms of this condition include a sudden, strong urge to urinate. Other symptoms include: ??? Leaking urine. ??? Urinating 8 or more times a day. ??? Waking up to urinate 2 or more times overnight. How is this diagnosed? This condition may be diagnosed based on: ??? Your symptoms and medical history. ??? A physical exam. ??? Blood or urine tests to check for possible causes, such as infection. You may also need to see a health care provider who specializes in urinary tract problems. This is called a urologist. How is this treated? Treatment for overactive bladder depends on the cause of your condition and whether it is mild or severe. Treatment may include: ??? Bladder training, such as: ? Learning to control the urge to urinate by following a schedule to urinate at regular intervals. ? Doing Kegel exercises to strengthen the pelvic floor muscles that support your bladder. ??? Special devices, such as: ? Biofeedback. This uses sensors to help you become aware of your body's signals. ? Electrical stimulation. This uses electrodes placed inside the body (implanted) or outside the body. These electrodes send gentle pulses of electricity to strengthen the nerves or muscles that control the bladder. ? Women may use a plastic device, called a pessary, that fits into the vagina and supports the bladder. ??? Medicines, such as: ? Antibiotics to treat bladder infection. ? Antispasmodics to stop the bladder from releasing urine at the wrong time. ? Tricyclic antidepressants to relax bladder muscles. ? Injections of botulinum toxin type A directly into the bladder tissue to relax bladder muscles. ??? Surgery, such as: ? A device may be implanted to help manage the nerve signals that control urination. ? An electrode may be implanted to stimulate electrical signals in the bladder. ? A procedure may be done to change the shape of the bladder. This is done only in very severe cases. Follow these instructions at home: Eating and drinking ??? Make diet or lifestyle changes recommended by your health care provider. These may include: ? Drinking fluids throughout the day and not only with meals. ? Cutting down on caffeine or alcohol. ? Eating a healthy and balanced diet to prevent constipation. This may include: ? Choosing foods that are high in fiber, such as beans, whole grains, and fresh fruits and vegetables. ? Limiting foods that are high in fat and processed sugars, such as fried and sweet foods. Lifestyle ??? Lose weight if needed. ??? Do not use any products that contain nicotine or tobacco. These include cigarettes, chewing tobacco, and vaping devices, such as e-cigarettes. If you need help quitting, ask your health care provider. General instructions ??? Take vhsj-kpa-lehltbn and prescription medicines only as told by your health care provider. ??? If you were prescribed an antibiotic medicine, take it as told by your health care provider. Donot stop taking the antibiotic even if you start to feel better. ??? Use any implants or pessary as told by your health care provider. ??? If needed, wear pads to absorb urine leakage. ??? Keep a log to track how much and when you drink, and whe (more content not included)...[facility]08-04-2025 Evaluation note* Diagnosis Onset Date Resolution Status Admit Date Anxiety acuteAugust 2024 2:35pmLanguage impairmentacuteAugust 2024 2:35pm Memory lossacuteAugust 2024 2:35pmPrimary progressive aphasiaacuteAugust 2024 2:35pm [facility] Work Phone: 1(681) 660-997304-21-2025 History of Present illness Narrative* KRISTEN Sewell - 07/26/2024 9:45 AM EDTAssociated Order(s): L Inj/Asp: L glenohumeral; L Inj/Asp: L subacromial bursa Post-Procedure Diagnose(s): Left shoulder pain, unspecified chronicity L Inj/Asp: L glenohumeral on 07/26/2024 10:15 AM Indications: pain Details: 25 G needle, ultrasound-guided Medications: 1 mL betamethasone acetate-betamethasone sodium phosphate 6 (3-3) MG/ML Consent was given by the patient. L Inj/Asp: L subacromial bursa on 07/26/2024 10:15 AM Indications: pain Details: 25 G needle, ultrasound-guided Medications: 1 mL betamethasone acetate-betamethasone sodium phosphate 6 (3-3) MG/ML Consent was given by the patient. * Eddie Sidhu DO - 07/26/2024 9:45 AM EDT Images from the original note were not included. @ERIKDATE@ Shima Mady Michele is a 84 y.o. female who presents for Post-op and Follow-up of the Left Shoulder (E/O STM) HPI: History of Present Illness The patient is an 84-year-old female who presents today for follow-up on her left shoulder. She hasa history of open excision of a soft tissue mass with distal clavicle excision on 08/29/2023. Family member Rosa is present. Approximately six months ago, while attempting to retrieve an object from under a surface, her shoulder jerked slightly. This incident resulted in mild discomfort. Occasionally, aching sensations areexperienced in the shoulder while lying in bed, but these are not persistent. Physical therapy oncea week has been beneficial in managing her symptoms. Additionally, the shoulder tends to ache afterexertion, such as after working hard or engaging in strenuous activities. Moved into the [place]. SUBJECTIVE: MEDICATIONS: Current Outpatient Medications Medication Instructions aspirin 81 mg, Daily RT atorvastatin (LIPITOR) 40 mg, Daily cholecalciferol (VITAMIN D-3) 25 mcg Cipro 500 mg cyanocobalamin (VITAMIN B-12) 100 mcg, Daily RT hydroCHLOROthiazide (HYDRODIURIL) 12.5 mg, Daily levothyroxine (Synthroid, Levoxyl) 25 MCG tablet magnesium oxide 400 mg, Daily RT omeprazole (PRILOSEC) 20 mg, Daily RT oxybutynin XL (DITROPAN-XL) 5 mg, Daily Ozempic, 1 MG/DOSE, 4 MG/3ML solution pen-injector Rexulti 1 mg, Daily venlafaxine XR (EFFEXOR XR) 75 mg, Daily venlafaxine XR (EFFEXOR XR) 37.5 mg, Daily verapamil ER (VERELAN) 120 mg, Daily ALLERGIES: No Known Allergies SURGICAL HISTORY: Past Surgical History: Procedure Laterality Date CARDIAC ELECTROPHYSIOLOGY MAPPING AND ABLATION 03/2017 Cardiovascular - Ablation HYSTERECTOMY 1987 KNEE ARTHROSCOPY W/ DEBRIDEMENT ROTATOR CUFF REPAIR Bilateral 2005 SHOULDER SURGERY Left 08/29/2023 E/O [facility] JAB TONSILLECTOMY 1950 TOTAL KNEE ARTHROPLASTY Bilateral FAMILY HISTORY: Family History Problem Relation Name Age of Onset Prostate cancer Father Cancer Other Heart disease Other SOCIAL HISTORY: Social History Tobacco Use Smoking status: Never Smokeless tobacco: Never Vaping Use Vaping status: Never Used Substance Use Topics Alcohol use: Yes Drug use: Defer Depression: Not on file REVIEW OF SYMPTOMS: Review of Systems The review of systems, history and current medications list are all reviewed today. OBJECTIVE: Visit Vitals Ht 5' 2 Wt 170 lb BMI 31.09 kg/m OB Status Unknown Smoking Status Never BSA 1.84 m Physical Exam Alert and oriented, no acute distress. Mood and affect are appropriate. Ambulating independently. Gait is nonantalgic. Left Shoulder: - incision well healed. No recurrence of cyst. - The left shoulder can be passively raised all the way to 160 degrees. - Abduction of the left shoulder is possible up to 90 degrees. - crepitus is felt in the left shoulder. - External rotation of the left shoulder is limited to about 60 degrees. - Weakness noted in with ER. No ER lag. - mild weakness with forward flexion. - negative belly press Ortho Exam Results 4 views left shoulder, Grashey/Zanca/outlet/axillary, taken today and saved to the permanent medical record are reviewed. 2 metallic anchors in greater tuberosity. Moderate GH arthritis. Slight superior migration of humeral head. Evidence of distal clavicle excision. No acute osseous abnormalities.Visualized lung dunn are clear. ASSESSMENT AND PLAN: I reviewed the history, physical exam, diagnostic studies, and diagnosis with the patient. Assessment & Plan 1. Glenohumeral osteoarthrosis, recurrent rotator cuff tear, left shoulder A cortisone injection will be administered into the affected shoulder to alleviate the pain. Ice should be applied to the shoulder for approximately 30 minutes prior to bedtime, particularly on days when physical therapy sessions are scheduled, to reduce inflammation and numb the area before sleep. A limited ultrasound examination of the left shoulder was performed. The patient's hand was placed in the lap in the supinated position. The biceps tendon, subscapularis, and pectoralis major were visualized at the anterior aspect of the shoulder. The acromioclavicular joint was then identified at the superior aspect of the shoulder. The patient's hand was then placed behind the back near the waist. The probe was moved to the lateral aspect of the shoulder and the supraspinatus and infraspinatus were visualized in the subacromial space. The anterolateral aspect of the shoulder was then prepped with alcohol and betadine. Using ultrasound guidance, a 25-gauge 1-1/2 inch needle was inserted into the subacromial space adjacent to the supraspinatus. A mixture of 1 mL of 1% plain lidocaine and 1 mL of betamethasone was then injected. The patient's arm was then placed back at the side and the probe was moved to the posterior aspect of the shoulder. The glenohumeral joint was visualized. The a jose g was prepped with alcohol and betadine. Using ultrasound guidance, a new 25 gauge 1-1/2 inch needle was inserted into the glenohumeral joint from a posterior approach. A mixture of 1 mL of 1% plain lidocaine and 1 mL of betamethasone was then injected. The patient tolerated this well. A Band-Aidwas applied. The patient was instructed to ice the shoulder and to watch for any signs of infectionincluding redness, increased pain, drainage from the injection site, fever, chills, etc. The patient was instructed to call the office if he/she experiences any adverse reaction to the injection. Injections may be repeated every few months if effective. The patient would like to leave follow up to his/her own discretion. A total of 30 to 39 minutes was spent on this patient encounter which included chart review, check in, nurse triage, history taking, physical examination, diagnostic study review, patient counseling and discussion, entering information into the patient's medical record, and coordinating patient care. Diagnoses and all orders for this visit: Left shoulder pain, unspecified chronicity - XR shoulder 2+ views left - L Inj/Asp: L glenohumeral - L Inj/Asp: L subacromial bursa Eddie Sidhu D.O. Attestation This note was created using voice recognition through [employer] artificial [employer]. documented in this encounterUniversity [id number] NoteDischarge Summary Basic Information Time Seen: Urmila Bueno DO 06/25/2024 23:18 Chief Complaint pt reports sinus pain, headache, and neck pain that started 2 days ago. 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 History of Present Illness Patient is a 84-year-old female with past medical history of hypertension, hyperlipidemia, hypothyroidism presenting to the ED for evaluation of sinus pain, headache in addition to left-sided neck pain worse with turning. Patient states symptoms started 2 days ago progressively worsen. Patient denies any falls or trauma. Does note worsening pain with moving her neck. Patient notes the pain primarily under her jaw. Denies any fevers, chills, dizziness or lightheadedness denies chest pain or shortness of breath. Review of Systems A 10 point review of systems is negative except as noted above. Medical and Surgical History: Reviewed and noted Social history: Lives at home Tobacco: Denies Physical Exam Vitals & Measurements T: 36.6 ???C(Oral) HR: 98(Peripheral) RR: 17 BP: 175/90 SpO2: 95% HT: 157 cm WT: 76.4 kg BMI: 31 General: Well developed, non toxic appearing, no acute distress HEENT: Head atraumatic, Mucosa moist, hearing grossly normal Neck: No JVD, tracheal deviation, pain on palpation along the lateral SCM Cardiac: Regular rate, rhythm, no murmurs, or gallops, 2+ radial pulses Respiratory: Lungs clear to auscultation B/L, normal respiratory effort Abdomen: Soft non tender, no rebound or guarding, no peritoneal signs Extremities: No edema noted in the LE B/L, no tenderness to palpation Neurologic: Alert and oriented, speech clear Skin: No rashes or lesions Psych: Appropriate mood and behavior Medical Decision Making MEDICAL DECISION MAKING Number and Complexity of Problems Differential Diagnosis: [] [facility] Data External documents reviewed: [] My EKG interpretation: [] My CT interpretation: [] My X-ray interpretation: [] My Ultrasound interpretation: [] Decision rules/scores evaluated: [] Discussed with: [] Treatment and Disposition ED Course: Patient is AN 84-year-old female presenting to the ED for evaluation of left-sided neck pain, headache. Patient is nontoxic and on arrival, no acute stress is noted to be hypertensive on examination. Patient very worried about her hypertension. Due to the fact she is having some neck pain will obtain cardiac workup to underlying for cardiac process. Laboratory evaluation is unremarkable troponins are negative x 2, flu and COVID swab are negative. Did do a CT of the cervical spine wasnegative for acute pathology. Blood pressure did come down with pain control. Discussed with patient likely musculoskeletal strain, she is comfortable discharge home. She will monitor blood pressure at home and follow-up with her primary care doctor. She is to return to the ED for any new or worsening symptoms. Shared decision making: [] Code status: [] Assessment/Plan Elevated blood pressure reading (R03.0: Elevated blood-pressure reading, without diagnosis of hypertension) Neck pain (M54.2: Cervicalgia) Orders: methocarbamol, 500 mg = 1 tab(s), Oral, TID, X 3 day(s), # 9 tab(s), Refills(s) 0, Pharmacy: [facility], 157, cm, 06/25/24 20:46:00 EDT, Height/Length Dosing, 76.4, kg, 06/25/24 20:46:00 EDT, Weight Dosing morphine, 2 mg = 1 mL, Injection, IV Push, Once, Stop date 06/26/24 0:34:00 EDT, STAT, Start date 06/26/24 0:34:00 EDT, 06/26/24 0:34:00 EDT orphenadrine, 60 mg = 2 mL, Injection, IntraMuscular, Once, Stop date 06/26/24 0:34:00 EDT, STAT, Start date 06/26/24 0:34:00 EDT, 06/26/24 0:34:00 EDT Basic Metabolic Panel CBC w/ Auto Diff CT Spine Cervical w/o Contrast ECG 12 Lead Adult ED Cardiac Monitoring eGFR Extra SST Tube Influenza A&B Ag Magnesium Level Oxygen Saturation Oxygen Therapy PT & PTT Rapid COVID Antigen ([facility] Saline Lock Insert Troponin 0 Hr. Troponin 1 Hr. XR Chest Single View Medications Administered Given morphine 2 mg/mL Inj, 2 mg, IV Push orphenadrine 30 mg/mL Inj, 60 mg, IntraMuscular Disposition Plan Discharge Prescription List Prescriptions Robaxin 500 mg Tab, 500 mg= 1 tab(s), Oral, TID Follow-up With When Contact Information Aga Oakes In 3 days 06/29/2024 EDT [address], Camille [address], [address] [place] [address]- Business (1) Additional Instructions: You can use the Robaxin every 8 hours as needed for muscle spasm. You can use Tylenol, ibuprofen every 6 hours as needed for pain. Keep a log of your blood pressure and follow-up with your primary care doctor. Please return to the ED for any new or worsening symptoms or if you have any concerns. Patient Education Neck Exercises Musculoskeletal Pain How to Take Your Blood Pressure, Zrfd-to-Uhld Problem List/Past Medical History Ongoing BMI 27.0-27.9,adult Cancer Cerumen debris on tympanic membrane of both ears Depression Esophageal reflux Heari (more content not included)...Parkwood HospitalComment on above: Result Comment: Electronically Signed By: Urmila Bueno DO.isa\Date and Time Signed: 07/12/24 22:15 [id number] History of Present illness Narrative* EVE Ulloa - 07/07/2024 2:00 PM EDT Subjective Shima Michele is a 84 y.o. year old female Memory changes Past Medical History: Diagnosis Date Arthritis Depression (CMS/HCC) History of being hospitalized 06/2021 [facility] [place]06/25/20[place] to 06/26/2021) For concern for stroke due to paresthesias o the left arm Hyperlipidemia (CMS/HCC) Mumps Skin cancer Thyroid disorder (CMS/HCC) Varicella Vertigo Past Surgical History: Procedure Laterality Date CARDIAC ELECTROPHYSIOLOGY MAPPING AND ABLATION 03/2017 Cardiovascular - Ablation HYSTERECTOMY 1987 KNEE ARTHROSCOPY W/ DEBRIDEMENT ROTATOR CUFF REPAIR Bilateral 2005 SHOULDER SURGERY Left 08/29/2023 E/O [facility] JAB TONSILLECTOMY 1950 TOTAL KNEE ARTHROPLASTY Bilateral Family History Problem Relation Name Age of Onset Prostate cancer Father Cancer Other Heart disease Other Social History Tobacco Use Smoking status: Never Smokeless tobacco: Never Substance Use Topics Alcohol use: Yes Medication Documentation Review Audit Reviewed by Lisa Graham MA (Keeler Polygraph Operator) on 07/07/24 at 1411 Medication Order Taking? Sig Documenting Provider Last Dose Status aspirin 81 MG EC tablet [id number] Take 81 mg by mouth in the morning. Eddie Sidhu DO Active atorvastatin (Lipitor) 40 MG tablet [id number] Take 40 mg by mouth in the morning. Eddie Sidhu DO Active Brexpiprazole (Rexulti) 1 MG tablet [id number] Take 1 mg by mouth Daily Historical Provider, Active cholecalciferol (Vitamin D-3) 25 MCG (1000 UT) capsule [id number] Take 25 mcg by mouth Eddie SidhuDO Active Cipro 500 MG tablet [id number] Take 500 mg by mouth Eddie Sidhu DO Active cyanocobalamin (Vitamin B-12) 100 MCG tablet [id number] Take 100 mcg by mouth in the morning. Eddie Balderrama, DO Active hydroCHLOROthiazide (HYDRODiuril) 12.5 MG tablet [id number] Take 12.5 mg by mouth in the morning. Eddie Sidhu, DO Active levothyroxine (Synthroid, Levoxyl) 25 MCG tablet [id number] TAKE 1 & 1/2 (ONE & ONE-HALF) TABLETS BY MOUTH ONCE DAILY ON AN EMPTY STOMACH IN THE MORNING Eddie Sidhu, DO Active magnesium oxide 400 MG capsule [id number] Take 400 mg by mouth in the morning. Eddie Sidhu, DO Active omeprazole (PriLOSEC) [address] capsule [id number] Take 20 mg by mouth in the morning. Eddie Sidhu, DO Active oxybutynin XL (Ditropan-XL) 5 MG 24 hr tablet [id number] Take 5 mg by mouth in the morning. Eddie Sidhu, DO Active Ozempic, 1 MG/DOSE, 4 MG/3ML solution pen-injector [id number] INJECT 1 MG SUBCUTANEOUSLY ONCE A WEEK Eddie Sidhu, DO Active venlafaxine XR (Effexor XR) 37.5 MG 24 hr capsule [id number] Take 37.5 mg by mouth Daily Do not crushor chew. Matti Baird MD Active venlafaxine XR (Effexor XR) 75 MG 24 hr capsule [id number] Take 75 mg by mouth in the morning. Edide Sidhu DO Active verapamil ER (Verelan) 120 MG 24 hr capsule [id number] Take 120 mg by mouth in the morning. Eddie Sidhu, DO Active HPI HPI TIA -reports she is not taking an ASA -denies any new signs or symptoms of stroke Frontotemporal dementia/ Primary progressive aphasia -memory is the same, maybe a little better -reports she does have some recollection trouble -trouble with short term memory -forgetting recent conversations and events -misplaces things around her room in the facility -no longer driving, due to insurance covering her living situation -daughter states the family also felt it was a good idea -mood swings and agitation have improved -she was started on rexulti and this has helped -sleeping well at night -averages 10 hours a night -denies any further vivid dreams -wakes feeling rested most of the time -she and her live at [facility] -has meals prepared for them -family comes and organizes medications -son continues to do finances -no help needed with clothing and bathing ROS Review of Systems Constitutional: Negative for activity change and fatigue. HENT: Negative for trouble swallowing and voice change. Eyes: Negative for photophobia and visual disturbance. Respiratory: Negative for apnea and shortness of breath. Gastrointestinal: Negative for nausea and vomiting. Neurological: Negative for tremors, weakness, light-headedness and headaches. Psychiatric/Behavioral: Positive for confusion. Negative for hallucinations. Objective Visit Vitals BP 142/84 Pulse 77 Resp 16 Ht 5' 2 Wt 170 lb SpO2 97% BMI 31.09 kg/m OB Status Unknown Smoking Status Never BSA 1.84 m Neurological Exam Mental Status Awake, alert and oriented to person, place and time. Speech is normal. Language: Slight word finding difficulties. Cranial Nerves CN II: Visual acuity is normal. Visual dunn full to confrontation. CN III, IV, : Extraocular movements intact bilaterally. Normal lids and orbits bilaterally. Pupils equal round and reactive to light bilaterally. CN V: Facial sensation is normal. CN VII: Full and symmetric facial movement. CN VIII: Hearing is normal. CN IX, X: Palate elevates symmetrically. Normal gag reflex. CN XI: Shoulder shrug strength is normal. CN XII: Tongue midline without atrophy or fasciculations. Sensory Light touch is normal in upper and lower extremities. Gait Normal casual, toe, heel and tandem gait. Motor Examination RUE Strength deltoid, biceps, triceps, wrist extensors, wrist extensors, wrist flexor, warning coordination meteorologist strength 5/5. LUE Strength deltoid, biceps, triceps, wrist extensors, wrist extensors, wrist flexor, warning coordination meteorologist strength 5/5. RLE Strength illopsoas, quadriceps, tibialis anterior, and gastrocnemius strength 5/5. LLE Strength illopsoas, quadriceps, tibialis anterior, and gastrocnemius strength 5/5. Tone Normal tone x4 extremities. Reflexes: RUE biceps reflex 2, brachioradialis reflex 2 LUE biceps reflex 2, brachioradialis reflex 2 RLE knee reflex 2, ankle reflex 2 LLE knee reflex 2, ankle reflex 2 Heart: Regular rate and rhythm Assessment and Plan Diagnoses and all orders for this visit: Primary progressive aphasia (CMS/HCC) Frontotemporal dementia (CMS/HCC) Word finding difficulty She presented 10/21/2023 with cognitive difficulty that started in the past year with worsening since February 2023. She had an MRI of the brain 09/12/23 at [facility] that revealed no acute intracranial process, but chronic microvascular ischemia. MMSE from her PCPs office was 20/30 and MOCA 02/10/2024 was 24/30 with 0/5 recall. She had neuropsych testing which revealed frontotemporal dementia/primary progressive aphasia with recommendations to repeat testing in 12-18 months. She is now living at the [facility]. She has needed daily assistance with laundry, finances, and reminders for medication. Extra caution with driving was advised per neuropsych testing. Patient no longer drives. Will have her schedule repeat neuropsych testing in November. History of TIA (transient ischemic attack) Patient was seen at [facility] 06/25/2021 to 06/26/2021 for concern for stroke due to paresthesias of the left arm. CTA of the head and MRA of the head were nonacute. Head CT was nonacute. Brain MRI revealedno acute process. It did reveal chronic changes likely consistent with small vessel ischemic changes. Carotid ultrasound revealed less that 50% stenosis of carotids bilaterally. Her symptoms have resolved. She does follow with massage therapy for neck pain. No new stroke signs or symptoms. Stable with aspirin. MOCA 02/10/2024: 24/30 with 0/5 recall MMSE previously 20/30 Neuropsychology evaluation 11/26/2023: revealed largely restricted deficits with expressive languageand executive skills. In addition, verbal memory was a greater struggle than visual. Overall findings were most consistent with frontotemporal dementia/ primary progressive aphasia. Minimal psychiatric contribution. MRI of the brain 09/12/23 at [facility]: revealed no acute intracranial process, but chronic microvascular ischemia PLAN I will obtain neuropsychology evaluation to be completed in November 2024 to monitor for progression of frontotemporal dementia/primary progressive aphasia Continue supplementing vitamin B12 per PCP Patient to follow up with this clinic after neuropsychology re-evaluation documented in this encounterUniversity [id number] NoteED Patient Education Note Orthopedics Neck Exercises Ask your health care provider which exercises are safe for you. Do exercises exactly as told by your health care provider and adjust them as directed. It is normal to feel mild stretching, pulling, tightness, or discomfort as you do these exercises. Stop right away if you feel sudden pain or your pain gets worse. Do not begin these exercises until told by your health care provider. Neck exercises can be important for many reasons. They can improve strength and maintain flexibility in your neck, which will help your upper back and prevent neck pain. Stretching exercises Rotation neck stretching 1. Sit in a chair or stand up. 2. Place your feet flat on the floor, shoulder-width apart. 3. Slowly turn your head (rotate) to the right until a slight stretch is felt. Turn it all the way to the right so you can look over your right shoulder. Do not tilt or tip your head. 4. Hold this position for 10?30 seconds. 5. Slowly turn your head (rotate) to the left until a slight stretch is felt. Turn it all the way to the left so you can look over your left shoulder. Do not tilt or tip your head. 6. Hold this position for 10?30 seconds. Repeat times. Complete this exercise times a day. Neck retraction 1. Sit in a sturdy chair or stand up. 2. Look straight ahead. Do not bend your neck. 3. Use your fingers to push your chin backward (retraction). Do not bend your neck for this movement. Continue to face straight ahead. If you are doing the exercise properly, you will feel a slight sensation in your throat and a stretch at the back of your neck. 4. Hold the stretch for 1?2 seconds. Repeat times. Complete this exercise times a day. Strengthening exercises Neck press 1. Lie on your back on a firm bed or on the floor with a pillow under your head. 2. Use your neck muscles to push your head down on the pillow and straighten your spine. 3. Hold the position as well as you can. Keep your head facing up (in a neutral position) and your chin tucked. 4. Slowly count to 5 while holding this position. Repeat times. Complete this exercise times a day. Isometrics These are exercises in which you strengthen the muscles in your neck while keeping your neck still (isometrics). 1. Sit in a supportive chair and place your hand on your forehead. 2. Keep your head and face facing straight ahead. Do not flex or extend your neck while doing isometrics. 3. Push forward with your head and neck while pushing back with your hand. Hold for 10 seconds. 4. Do the sequence again, this time putting your hand against the back of your head. Use your head and neck to push backward against the hand pressure. 5. Finally, do the same exercise on either side of your head, pushing sideways against the pressureof your hand. Repeat times. Complete this exercise times a day. Prone head lifts 1. Lie face-down (prone position), resting on your elbows so that your chest and upper back are raised. 2. Start with your head facing downward, near your chest. Position your chin either on or near yourchest. 3. Slowly lift your head upward. Lift until you are looking straight ahead. Then continue lifting your head as far back as you can comfortably stretch. 4. Hold your head up for 5 seconds. Then slowly lower it to your starting position. Repeat times. Complete this exercise times a day. Supine head lifts 1. Lie on your back (supine position), bending your knees to point to the ceiling and keeping your feet flat on the floor. 2. Lift your head slowly off the floor, raising your chin toward your chest. 3. Hold for 5 seconds. Repeat times. Complete this exercise times a day. Scapular retraction 1. Stand with your arms at your sides. Look straight ahead. 2. Slowly pull both shoulders (scapulae) backward and downward (retraction) until you feel a stretch between your shoulder blades in your upper back. 3. Hold for 10?30 seconds. 4. Relax and repeat. Repeat times. Complete this exercise times a day. Contact a health care provider if: ??? Your neck pain or discomfort gets worse when you do an exercise. ??? Your neck pain or discomfort does not improve within 2 hours after you exercise. If you have any of these problems, stop exercising right away. Do not do the exercises again unlessyour health care provider says that you can. Get help right away if: ??? You develop sudden, severe neck pain. If this happens, stop exercising right away. Do not do the exercises again unless your health care provider says (more content not included)...[facility] History of Present illness Narrative* Oumou Rodarte DO - 05/14/2024 10:15 AM EST Images from the original note were not included. Assessment/Plan Diagnoses and all orders for this visit: Dry eyes - Dry Eyes OU -- Environmental changes to minimize dryness and exposure and the use of artificial tears were recommended. Blepharitis of upper and lower eyelids of both eyes, unspecified type - Blepharitis, posterior type OU - The patient exhibits inspissated meibomian glands. Warm compresses, lid massage and lid scrubs were recommended. documented in this encounterUniversity [id number] History of Present illness Narrative* EVE Ulloa - 02/10/2024 11:20 AM EST Subjective Shima Michele is a 83 y.o. year old female Memory changes Past Medical History: Diagnosis Date Arthritis Depression ([facility]) History of being hospitalized 06/2021 [facility] [place]06/25/[place] to 06/26/2021) For concern for stroke due to paresthesias o the left arm Hyperlipidemia (CMS/HCC) Mumps Skin cancer Thyroid disorder (CMS/HCC) Varicella Vertigo Past Surgical History: Procedure Laterality Date CARDIAC ELECTROPHYSIOLOGY MAPPING AND ABLATION 03/2017 Cardiovascular - Ablation HYSTERECTOMY 1987 KNEE ARTHROSCOPY W/ DEBRIDEMENT ROTATOR CUFF REPAIR Bilateral 2005 SHOULDER SURGERY Left 08/29/2023 E/O [facility] JAB TONSILLECTOMY 1950 TOTAL KNEE ARTHROPLASTY Bilateral Family History Problem Relation Name Age of Onset Prostate cancer Father Cancer Other Heart disease Other Social History Tobacco Use Smoking status: Never Smokeless tobacco: Never Substance Use Topics Alcohol use: Yes Medication Documentation Review Audit Reviewed by Lisa Graham MA (Keeler Polygraph Operator) on 02/10/24 at 1129 Medication Order Taking? Sig Documenting Provider Last Dose Status aspirin 81 MG EC tablet [id number] No Take 81 mg by mouth in the morning. Eddie Sidhu, DO Taking Active atorvastatin (Lipitor) 40 MG tablet [id number] No Take 40 mg by mouth in the morning. Eddie Sidhu, DO Not Taking Active cholecalciferol (Vitamin D-3) 25 MCG (1000 UT) capsule [id number] No Take 25 mcg by mouth Eddie Sidhu DO Not Taking Active Cipro 500 MG tablet [id number] No Take 500 mg by mouth Eddie Sidhu DO Not Taking Active cyanocobalamin (Vitamin B-12) 100 MCG tablet [id number] No Take 100 mcg by mouth in the morning. Eddie Sidhu, DO Not Taking Active hydroCHLOROthiazide (HYDRODiuril) 12.5 MG tablet [id number] No Take 12.5 mg by mouth in the morning. Eddie Sidhu, DO Not Taking Active levothyroxine (Synthroid, Levoxyl) 25 MCG tablet [id number] No TAKE 1 & 1/2 (ONE & ONE-HALF) TABLETS BY MOUTH ONCE DAILY ON AN EMPTY STOMACH IN THE MORNING Eddie Sidhu, DO Taking Active magnesium oxide 400 MG capsule [id number] No Take 400 mg by mouth in the morning. Eddie Sidhu, DO Not Taking Active omeprazole (PriLOSEC) [address] capsule [id number] No Take 20 mg by mouth in the morning. Eddie Sidhu, DO Not Taking Active oxybutynin XL (Ditropan-XL) 5 MG 24 hr tablet [id number] No Take 5 mg by mouth in the morning. Eddie Sidhu, DO Not Taking Active Ozempic, 1 MG/DOSE, 4 MG/3ML solution pen-injector [id number] No INJECT 1 MG SUBCUTANEOUSLY ONCE A WEEK Eddie Sidhu, DO Not Taking Active venlafaxine XR (Effexor XR) 37.5 MG 24 hr capsule [id number] No Take 37.5 mg by mouth Daily Do not crush or chew. Matti Baird MD Taking Active venlafaxine XR (Effexor XR) 75 MG 24 hr capsule [id number] No Take 75 mg by mouth in the morning. Eddie Sidhu, DO Taking Active verapamil ER (Verelan) 120 MG 24 hr capsule [id number] No Take 120 mg by mouth in the morning. Eddie Sidhu, DO Not Taking Active HPI HPI TIA -on ASA -denies any new signs or symptoms of stroke Memory loss -memory is the same, denies worsening -trouble with short term memory -continues to forget names -forgetting recent conversations and events -misplaces things around her room in the facility -states she feels this is because she is always in a hurry -continues to drive without issue, but does not drive much, stays local -mood swings and agitation have become more frequent -she is on venlafaxine 75mg and 37.5mg -sleeping fairly good at night -averages 8 hours a night -occasional vivid dreams -wakes feeling rested most of the time -she and her live at [facility] -has meals prepared for them -family comes and organizes medications -son helps with finances -no help needed with clothing and bathing ROS Review of Systems Constitutional: Negative for activity change and fatigue. HENT: Negative for trouble swallowing and voice change. Eyes: Negative for photophobia and visual disturbance. Respiratory: Negative for apnea and shortness of breath. Gastrointestinal: Negative for nausea and vomiting. Neurological: Negative for tremors, weakness, light-headedness and headaches. Psychiatric/Behavioral: Positive for agitation and confusion. Negative for hallucinations. Objective Visit Vitals BP 118/74 Pulse 70 Resp 16 Ht 5' 2 Wt 161 lb SpO2 97% BMI 29.45 kg/m OB Status Unknown Smoking Status Never BSA 1.79 m Neurological Exam Mental Status Awake, alert and oriented to person, place and time. Memory: decreased. Speech is normal. Language:Slight word finding difficulties. Cranial Nerves CN II: Visual acuity is normal. Visual dunn full to confrontation. CN III, IV, : Extraocular movements intact bilaterally. Normal lids and orbits bilaterally. Pupils equal round and reactive to light bilaterally. CN V: Facial sensation is normal. CN VII: Full and symmetric facial movement. CN VIII: Hearing is normal. CN IX, X: Palate elevates symmetrically. Normal gag reflex. CN XI: Shoulder shrug strength is normal. CN XII: Tongue midline without atrophy or fasciculations. Sensory Light touch is normal in upper and lower extremities. Gait Normal casual, toe, heel and tandem gait. Motor Examination RUE Strength deltoid, biceps, triceps, wrist extensors, wrist extensors, wrist flexor, warning coordination meteorologist strength 5/5. LUE Strength deltoid, biceps, triceps, wrist extensors, wrist extensors, wrist flexor, warning coordination meteorologist strength 5/5. RLE Strength illopsoas, quadriceps, tibialis anterior, and gastrocnemius strength 5/5. LLE Strength illopsoas, quadriceps, tibialis anterior, and gastrocnemius strength 5/5. Tone Normal tone x4 extremities. Reflexes: RUE biceps reflex 2, brachioradialis reflex 2 LUE biceps reflex 2, brachioradialis reflex 2 RLE knee reflex 2, ankle reflex 2 LLE knee reflex 2, ankle reflex 2 Heart: Regular rate and rhythm Assessment and Plan Diagnoses and all orders for this visit: Primary progressive aphasia (CMS/HCC) Frontotemporal dementia (CMS/HCC) Word finding difficulty She presented 10/21/2023 with cognitive difficulty that started in the past year with worsening since February 2023. She had an MRI of the brain 09/12/23 at [facility] [place] that revealed no acute intracranial process, but chronic microvascular ischemia. MMSE from her PCPs office was 20/30 and MOCA today 24/30 with 0/5 recall. She had neuropsych testing which revealed frontotemporal dementia/primary progressiveaphasia with recommendations to repeat testing in 12-18 months. She is now living at the [facility], as she has a need for daily assistance with laundry, finances, and reminders for medication. Extra caution with driving was advised per neuropsych testing. History of TIA (transient ischemic attack) Patient was seen at [facility] 06/25/2021 to 06/26/2021 for concern for stroke due to paresthesias of the left arm. CTA of the head and MRA of the head were nonacute. Head CT was nonacute. Brain MRI revealedno acute process. It did reveal chronic changes likely consistent with small vessel ischemic changes. Carotid ultrasound revealed less that 50% stenosis of carotids bilaterally. Her symptoms have resolved. She does follow with massage therapy for neck pain. No new stroke signs or symptoms. Stable with aspirin. MOCA 02/10/2024: with 0/5 recall MMSE previously Neuropsychology evaluation 11/26/2023: revealed largely restricted deficits with expressive languageand executive skills. In addition, verbal memory was a greater struggle than visual. Overall findings were most consistent with frontotemporal dementia/ primary progressive aphasia. Minimal psychiatric contribution. MRI of the brain 09/12/23 at [facility]: revealed no acute intracranial process, but chronic microvascular ischemia PLAN MOCA today and reviewed with patient Consider driving evaluation pending course. Patient was advised to limit driving Continue supplementing vitamin B12 per PCP Patient to follow up with this clinic in 3-4 months or sooner for new or worsening symptoms documented in this encounterUniversity [id number] Hospital Discharge instructions Patient Education 12/15/2023 09:53:52 Overactive Bladder, Adult Overactive Bladder, Adult Overactive bladder is a condition in which a person has a sudden and frequent need to urinate. A person might also leak urine if he or she cannot get to the bathroom fast enough (urinary incontinence). Sometimes, symptoms can interfere with work or social activities. What are the causes? Overactive bladder is associated with poor nerve signals between your bladder and your brain. Your bladder may get the signal to empty before it is full. You may also have very sensitive muscles thatmake your bladder squeeze too soon. This condition may also be caused by other factors, such as: Medical conditions: ?Urinary tract infection. ?Infection of nearby tissues. ?Prostate enlargement. ?Bladder stones, inflammation, or tumors. ?Diabetes. ?Muscle or nerve weakness, especially from these conditions: ?A spinal cord injury. ?Stroke. ?Multiple sclerosis. ?Parkinson's disease. Other causes: ?Surgery on the uterus or urethra. ?Drinking too much caffeine or alcohol. ?Certain medicines, especially those that eliminate extra fluid in the body (diuretics). ?Constipation. What increases the risk? You may be at greater risk for overactive bladder if you: Are an older adult. Smoke. Are going through menopause. Have prostate problems. Have a neurological disease, such as stroke, dementia, Parkinson's disease, or multiple sclerosis (MS). Eat or drink alcohol, spicy food, caffeine, and other things that irritate the bladder. Are overweight or obese. What are the signs or symptoms? Symptoms of this condition include a sudden, strong urge to urinate. Other symptoms include: Leaking urine. Urinating 8 or more times a day. Waking up to urinate 2 or more times overnight. How is this diagnosed? This condition may be diagnosed based on: Your symptoms and medical history. A physical exam. Blood or urine tests to check for possible causes, such as infection. You may also need to see a health care provider who specializes in urinary tract problems. This is called a urologist. How is this treated? Treatment for overactive bladder depends on the cause of your condition and whether it is mild or severe. Treatment may include: Bladder training, such as: ?Learning to control the urge to urinate by following a schedule to urinate at regular intervals. ?Doing Kegel exercises to strengthen the pelvic floor muscles that support your bladder. Special devices, such as: ?Biofeedback. This uses sensors to help you become aware of your body's signals. ?Electrical stimulation. This uses electrodes placed inside the body (implanted) or outside the body. These electrodes send gentle pulses of electricity to strengthen the nerves or muscles that control the bladder. ?Women may use a plastic device, called a pessary, that fits into the vagina and supports the bladder. Medicines, such as: ?Antibiotics to treat bladder infection. ?Antispasmodics to stop the bladder from releasing urine at the wrong time. ?Tricyclic antidepressants to relax bladder muscles. ?Injections of botulinum toxin type A directly into the bladder tissue to relax bladder muscles. Surgery, such as: ?A device may be implanted to help manage the nerve signals that control urination. ?An electrode may be implanted to stimulate electrical signals in the bladder. ?A procedure may be done to change the shape of the bladder. This is done only in very severe cases. Follow these instructions at home: Eating and drinking Make diet or lifestyle changes recommended by your health care provider. These may include: ?Drinking fluids throughout the day and not only with meals. ?Cutting down on caffeine or alcohol. ?Eating a healthy and balanced diet to prevent constipation. This may include: ?Choosing foods that are high in fiber, such as beans, whole grains, and fresh fruits and vegetables. ?Limiting foods that are high in fat and processed sugars, such as fried and sweet foods. Lifestyle Lose weight if needed. Do not use any products that contain nicotine or tobacco. These include cigarettes, chewing tobacco, and vaping devices, such as e-cigarettes. If you need help quitting, ask your health care provider. General instructions Take ecmx-ire-rxpbdns and prescription medicines only as told by your health care provider. If you were prescribed an antibiotic medicine, take it as told by your health care provider. Do notstop taking the antibiotic even if you start to feel better. Use any implants or pessary as told by your health care provider. If needed, wear pads to absorb urine leakage. Keep a log to track how much and when you drink, and when you need to urinate. This will help your health care provider monitor your condition. Keep all follow-up visits. This is important. Contact a health care provider if: You have a fever or chills. Your symptoms do not get better with treatment. Your pain and discomfort get worse. You have more frequent urges to urinate. Get help right away if: You are not able to control your bladder. Summary Overactive bladder refers to a condition in which a person has a sudden and frequent need to urinate. Several conditions may lead to an overactive bladder. Treatment for overactive bladder depends on the cause and severity of your condition. Making lifestyle changes, doing Kegel exercises, keeping a log, and taking medicines can help with this condition. This information is not intended to replace advice given to you by your health care provider. Make sure you discuss any questions you have with your health care provider. Document Revised: 12/11/2020 Document Reviewed: 12/11/2020 [email or web address] Patient Education 2023 [employer]. Follow Up Care 12/10/2023 10:44:31 With:Vee Allen, URL Address: When:1 year Comments:rinku/ MICKY [facility] 09-09-2024 NotePatient Education Obstetrics and Gynecology Overactive Bladder, Adult Overactive bladder is a condition in which a person has a sudden and frequent need to urinate. A person might also leak urine if he or she cannot get to the bathroom fast enough (urinary incontinence). Sometimes, symptoms can interfere with work or social activities. What are the causes? Overactive bladder is associated with poor nerve signals between your bladder and your brain. Your bladder may get the signal to empty before it is full. You may also have very sensitive muscles thatmake your bladder squeeze too soon. This condition may also be caused by other factors, such as: ? Medical conditions: ? Urinary tract infection. ? Infection of nearby tissues. ? Prostate enlargement. ? Bladder stones, inflammation, or tumors. ? Diabetes. ? Muscle or nerve weakness, especially from these conditions: ? A spinal cord injury. ? Stroke. ? Multiple sclerosis. ? Parkinson's disease. ? Other causes: ? Surgery on the uterus or urethra. ? Drinking too much caffeine or alcohol. ? Certain medicines, especially those that eliminate extra fluid in the body (diuretics). ? Constipation. What increases the risk? You may be at greater risk for overactive bladder if you: ? Are an older adult. ? Smoke. ? Are going through menopause. ? Have prostate problems. ? Have a neurological disease, such as stroke, dementia, Parkinson's disease, or multiple sclerosis(MS). ? Eat or drink alcohol, spicy food, caffeine, and other things that irritate the bladder. ? Are overweight or obese. What are the signs or symptoms? Symptoms of this condition include a sudden, strong urge to urinate. Other symptoms include: ? Leaking urine. ? Urinating 8 or more times a day. ? Waking up to urinate 2 or more times overnight. How is this diagnosed? This condition may be diagnosed based on: ? Your symptoms and medical history. ? A physical exam. ? Blood or urine tests to check for possible causes, such as infection. You may also need to see a health care provider who specializes in urinary tract problems. This is called a urologist. How is this treated? Treatment for overactive bladder depends on the cause of your condition and whether it is mild or severe. Treatment may include: ? Bladder training, such as: ? Learning to control the urge to urinate by following a schedule to urinate at regular intervals. ? Doing Kegel exercises to strengthen the pelvic floor muscles that support your bladder. ? Special devices, such as: ? Biofeedback. This uses sensors to help you become aware of your body's signals. ? Electrical stimulation. This uses electrodes placed inside the body (implanted) or outside the body. These electrodes send gentle pulses of electricity to strengthen the nerves or muscles that control the bladder. ? Women may use a plastic device, called a pessary, that fits into the vagina and supports the bladder. ? Medicines, such as: ? Antibiotics to treat bladder infection. ? Antispasmodics to stop the bladder from releasing urine at the wrong time. ? Tricyclic antidepressants to relax bladder muscles. ? Injections of botulinum toxin type A directly into the bladder tissue to relax bladder muscles. ? Surgery, such as: ? A device may be implanted to help manage the nerve signals that control urination. ? An electrode may be implanted to stimulate electrical signals in the bladder. ? A procedure may be done to change the shape of the bladder. This is done only in very severe cases. Follow these instructions at home: Eating and drinking ? Make diet or lifestyle changes recommended by your health care provider. These may include: ? Drinking fluids throughout the day and not only with meals. ? Cutting down on caffeine or alcohol. ? Eating a healthy and balanced diet to prevent constipation. This may include: ? Choosing foods that are high in fiber, such as beans, whole grains, and fresh fruits and vegetables. ? Limiting foods that are high in fat and processed sugars, such as fried and sweet foods. Lifestyle ? Lose weight if needed. ? Do not use any products that contain nicotine or tobacco. These include cigarettes, chewing tobacco, and vaping devices, such as e-cigarettes. If you need help quitting, ask your health care provider. General instructions ? Take ezel-utk-glicaof and prescription medicines only as told by your health care provider. ? If you were prescribed an antibiotic medicine, take it as told by your health care provider. Do not stop taking the antibiotic even if you start to feel better. ? Use any implants or pessary as told by your health care provider. ? If needed, wear pads to absorb urine leakage. ? Keep a log to track how much and when you drink, and when you need to urinate. This will help your health care (more content not included)...[facility]09-05-2024 History of Present illness Narrative* EVE Ulloa - 12/11/2023 9:40 AM EDT Subjective Shima Michele is a 83 y.o. year old female Memory changes Past Medical History: Diagnosis Date Arthritis Depression (CMS/HCC) History of being hospitalized 06/2021 [facility] [place]/25/[place] to 06/26/2021) For concern for stroke due to paresthesias o the left arm Hyperlipidemia (CMS/HCC) Mumps Skin cancer Thyroid disorder (CMS/HCC) Varicella Vertigo Past Surgical History: Procedure Laterality Date CARDIAC ELECTROPHYSIOLOGY MAPPING AND ABLATION 03/2017 Cardiovascular - Ablation HYSTERECTOMY 1987 KNEE ARTHROSCOPY W/ DEBRIDEMENT ROTATOR CUFF REPAIR Bilateral 2005 SHOULDER SURGERY Left 08/29/2023 E/O STM JAB TONSILLECTOMY 1950 TOTAL KNEE ARTHROPLASTY Bilateral Family History Problem Relation Name Age of Onset Prostate cancer Father Cancer Other Heart disease Other Social History Tobacco Use Smoking status: Never Smokeless tobacco: Never Substance Use Topics Alcohol use: Yes Medication Documentation Review Audit Reviewed by Lisa Graham MA ([employer] Polygraph Operator) on 12/11/23 at 0939 Medication Order Taking? Sig Documenting Provider Last Dose Status aspirin 81 MG EC tablet [id number] No Take 81 mg by mouth in the morning. Eddie Sidhu, DO Taking Active atorvastatin (Lipitor) 40 MG tablet [id number] No Take 40 mg by mouth in the morning. Eddie Sidhu, DO Not Taking Active cholecalciferol (Vitamin D-3) 25 MCG (1000 UT) capsule [id number] No Take 25 mcg by mouth Eddie Sidhu, DO Not Taking Active Cipro 500 MG tablet [id number] No Take 500 mg by mouth Eddie Sidhu, DO Not Taking Active cyanocobalamin (Vitamin B-12) 100 MCG tablet [id number] No Take 100 mcg by mouth in the morning. Eddie Sidhu, DO Not Taking Active hydroCHLOROthiazide (HYDRODiuril) 12.5 MG tablet [id number] No Take 12.5 mg by mouth in the morning. Eddie Henley Michoacano, DO Not Taking Active levothyroxine (Synthroid, Levoxyl) 25 MCG tablet [id number] No TAKE 1 & 1/2 (ONE & ONE-HALF) TABLETS BY MOUTH ONCE DAILY ON AN EMPTY STOMACH IN THE MORNING Eddie Sidhu, DO Taking Active magnesium oxide 400 MG capsule [id number] No Take 400 mg by mouth in the morning. Eddie Henley Michoacano, DO Not Taking Active omeprazole (PriLOSEC) [address] capsule [id number] No Take 20 mg by mouth in the morning. Eddie Henley [place]oacano, DO Not Taking Active oxybutynin XL (Ditropan-XL) 5 MG 24 hr tablet [id number] No Take 5 mg by mouth in the morning. Eddiesiva Sidhu, DO Not Taking Active Ozempic, 1 MG/DOSE, 4 MG/3ML solution pen-injector [id number] No INJECT 1 MG SUBCUTANEOUSLY ONCE A WEEK Eddie Sidhu, DO Not Taking Active venlafaxine XR (Effexor XR) 37.5 MG 24 hr capsule [id number] No Take 37.5 mg by mouth Daily Do not crush or chew. Matti Baird MD Taking Active venlafaxine XR (Effexor XR) 75 MG 24 hr capsule [id number] No Take 75 mg by mouth in the morning. Eddiesiva Sidhu, DO Taking Active verapamil ER (Verelan) 120 MG 24 hr capsule [id number] No Take 120 mg by mouth in the morning. Eddie Henley Michoacano, DO Not Taking Active Patient is here today for follow-up of memory loss and history of TIA and frontotemporal dementia/primary progressive aphasia. I am following the plan of care established by the physician who is present in the office today. HPI HPI TIA -she continues on ASA -denies any new signs or symptoms of stroke -she denies issues with hypertension Memory loss -had neuropsych and labs done, here to review -trouble with short term memory -states she has started forgetting names -forgetting recent conversations and events -misplacing things around the house -continues to drive without issue -she admits to mood swings and agitation -she is on venlafaxine 75mg and 37.5mg -sleeping fairly good at night -averages 8 hours a night -occasional vivid dreams -wakes feeling rested most of the time ROS Review of Systems Constitutional: Negative for activity change and fatigue. HENT: Negative for trouble swallowing and voice change. Eyes: Negative for photophobia and visual disturbance. Respiratory: Negative for apnea and shortness of breath. Gastrointestinal: Negative for nausea and vomiting. Neurological: Negative for tremors, weakness, light-headedness and headaches. Psychiatric/Behavioral: Positive for agitation and confusion. Negative for hallucinations. Objective Visit Vitals BP 124/74 Pulse 62 Resp 16 Ht 5' 3 Wt 152 lb SpO2 95% BMI 26.93 kg/m OB Status Unknown Smoking Status Never BSA 1.75 m Neurological Exam Mental Status Awake, alert and oriented to person, place and time. Memory: decreased. Speech is normal. Language:Slight word finding difficulties. Cranial Nerves CN II: Visual acuity is normal. Visual dunn full to confrontation. CN III, IV, : Extraocular movements intact bilaterally. Normal lids and orbits bilaterally. Pupils equal round and reactive to light bilaterally. CN V: Facial sensation is normal. CN VII: Full and symmetric facial movement. CN VIII: Hearing is normal. CN IX, X: Palate elevates symmetrically. Normal gag reflex. CN XI: Shoulder shrug strength is normal. CN XII: Tongue midline without atrophy or fasciculations. Sensory Light touch is normal in upper and lower extremities. Gait Normal casual, toe, heel and tandem gait. Motor Examination RUE Strength deltoid, biceps, triceps, wrist extensors, wrist extensors, wrist flexor, warning coordination meteorologist strength 5/5. LUE Strength deltoid, biceps, triceps, wrist extensors, wrist extensors, wrist flexor, warning coordination meteorologist strength 5/5. RLE Strength illopsoas, quadriceps, tibialis anterior, and gastrocnemius strength 5/5. LLE Strength illopsoas, quadriceps, tibialis anterior, and gastrocnemius strength 5/5. Tone Normal tone x4 extremities. Reflexes: RUE biceps reflex 2, brachioradialis reflex 2 LUE biceps reflex 2, brachioradialis reflex 2 RLE knee reflex 2, ankle reflex 2 LLE knee reflex 2, ankle reflex 2 Heart: Regular rate and rhythm Assessment and Plan Diagnoses and all orders for this visit: Primary progressive aphasia (CMS/HCC) Frontotemporal dementia (CMS/HCC) Word finding difficulty She present 10/21/2023 with cognitive difficulty that started in the past year with worsening since February. She had an MRI of the brain 09/12/23 at [facility] that revealed no acute intracranial process, but chronic microvascular ischemia. MMSE from her PCPs office was 20/30. She had neuropsych testing which revealed frontotemporal dementia/primary progressive aphasia with recommendations to repeat testing in 12-18 months. History of TIA (transient ischemic attack) Patient was seen at [facility] 06/25/2021 to 06/26/2021 for concern for stroke due to paresthesias of the left arm. CTA of the head and MRA of the head were nonacute. Head CT was nonacute. Brain MRI revealedno acute process. It did reveal chronic changes likely consistent with small vessel ischemic changes. Carotid ultrasound revealed less that 50% stenosis of carotids bilaterally. Her symptoms have resolved. She does follow with massage therapy for neck pain. Overall, she is feeling back to baseline and is compliant with aspirin. Neuropsychology evaluation 11/26/2023: revealed largely restricted deficits with expressive languageand executive skills. In addition, verbal memory was a greater struggle than visual. Overall findings were most consistent with frontotemporal dementia/ primary progressive aphasia. Minimal psychiatric contribution. MRI of the brain 09/12/23 at [facility]: revealed no acute intracranial process, but chronic microvascular ischemia PLAN I reviewed neuropsych testing I offered patient speech therapy, and she declined I discussed consideration for memory medication, and patient would like to hold off on additional medications at this time. I discussed consideration of PET scan for further diagnostic support, and as this would likely not oil change technician, they deferred further testing. I reviewed blood work and recommended patient supplement vitamin B12; I will fax this to PCP Patient to follow up with this clinic in 2-3 months or sooner for new or worsening symptoms documented in this encounterUniversity [id number] History of Present illness Narrative* Chris Falk, PhD - 11/26/2023 2:00 PM EDT Images from the original note were not included. Neuropsychology Chris Fakl, PhD NEUROPSYCHOLOGICAL EVALUATION Shima Michele is a 83 y.o. female referred for neuropsychological evaluation to assist with facilitating and informing medical differential diagnosis and clinical decision-making. The following information was obtained during an interview with the patient and , as well as review of available records. PRESENTING PROBLEM: Slow progressive decline in memory over the past 6+ months such as forgetting names, simple day-to-day forgetfulness, forgetting dates and times, misplacing things at home, word-finding difficulty, as well as mild struggles with attention/concentration. Remains independent in ADLs and housework. Finances remain jointly managed as before. Family sets up medication. Continues to drive without any issues. No regular exercise. Remains social. Overall sleeping well with good daytime energy. No pain complaints. Neurological history includes TIA identified in June 2021. MMSE . 09/12/23 brain MRI with no acute intracranial process with chronic microvascular ischemia. No family neurological history. Psychiatric history notable for anxiety. Denied any history of alcohol/substance abuse. [place] language [place]. 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 Resides with of 24 years. Has 2 childrenfrom her prior marriage. Reported that both she and will be moving into the [facility] in the near future. They are both very excited for the reduction in responsibility as well as increased socialization. MEDICAL HISTORY/MEDICATION: MEDICATIONS: Current Outpatient Medications Medication Instructions aspirin 81 mg, Oral, Daily RT atorvastatin (LIPITOR) 40 mg, Oral, Daily cholecalciferol (VITAMIN D-3) 25 mcg, Oral Cipro 500 mg, Oral cyanocobalamin (VITAMIN B-12) 100 mcg, Oral, Daily RT hydroCHLOROthiazide (HYDRODIURIL) 12.5 mg, Oral, Daily levothyroxine (Synthroid, Levoxyl) 25 MCG tablet TAKE 1 & 1/2 (ONE & ONE-HALF) TABLETS BY MOUTH ONCE DAILY ON AN EMPTY STOMACH IN THE MORNING magnesium oxide 400 mg, Oral, Daily RT omeprazole (PRILOSEC) 20 mg, Oral, Daily RT oxybutynin XL (DITROPAN-XL) 5 mg, Oral, Daily Ozempic, 1 MG/DOSE, 4 MG/3ML solution pen-injector INJECT 1 MG SUBCUTANEOUSLY ONCE A WEEK venlafaxine XR (EFFEXOR XR) 75 mg, Oral, Daily venlafaxine XR (EFFEXOR XR) 37.5 mg, Oral, Daily, Do not crush or chew. verapamil ER (VERELAN) 120 mg, Oral, Daily ASSESSMENT: Presented to appointment on time, alert, and Ox2-3, mild difficulty with exact date. Rapport easilyestablished. Good eye contact. Socially appropriate during conversation and testing. Hearing adequate for current purposes. Ambulated independently. Purpose for current evaluation explained and patient agreed to participate. Performance validity testing revealed some difficulty maintaining consistent levels of engagement. Findings are therefore interpreted with caution. Vision/Visuoconstruction: Binocular near-point visual acuity 20/20. Visual dunn full to confrontation. Visuoconstruction 21st %ile. Nonverbal abstract reasoning 42nd %ile. Copy of a complex geometric design <1st %ile. Motor/Speed of Processing: Right-handed. Physician'S Aide strength 7th %ile with right-hand, 34th %ile with left. Speeded graphomotor transcoding 6th %ile. Attention/Working Memory: Auditory attention/working memory 16th %ile (5 digits forward, 4 digits backward, 4 digits during sequencing). Speeded visual scanning/attention 1st %ile. Speeded visual divided attention d/c. Speech/Language: Expressive speech fluent and absent of paraphasic errors. Comprehension adequate for current purposes. Single-word reading 19th %ile. Generative naming to phonemic cues 2nd %ile, <1st %ile to semantic cues. Confrontation naming <1st %ile. Verbal abstract reasoning 1st %ile. Learning and Memory: Learning of a word list <1st %ile (1-1-3-5-4), delayed recall <1st %ile.Recognition discriminability <1st %ile. Forced-choice 02/20. Immediate recall for prose htmyqqjl9zh %ile, delayed 4th %ile. Recognition 26- 50th %ile. Immediate recall for a variety of geometric figures 14th %ile, delayed 8th %ile. Recognition 17-25th %ile. Executive Functioning: Novel problem-solving and cognitive flexibility d/c due to difficulty understanding task instructions and wishing not to continue. Emotional Functioning: Minimal depression and mild anxiety. Denied any thoughts of self-harm. FINDINGS AND RECOMMENDATIONS: CONCLUSIONS: 1. Estimated average pre-morbid intellectual functioning. 2. Preserved visual acuity without signs of visual field cut or neglect. 3. Borderline right-hand gross motor function, average with left. 4. Minimal depression and mild anxiety. OPINION: Current neuropsychological evaluation demonstrates largely restricted deficits with expressive language (verbal fluency, naming, etc.) and executive skills (verbal abstract reasoning, problem-solving/cognitive flexibility, visual scanning/divided attention, etc.). In addition, verbal memory was a greater struggle than visual. 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 Minimal psychiatric contribution. RECOMMENDATIONS: Results and recommendations forwarded to treating physician for review during their next appointment. She was encouraged to contact this office with any questions. PET would be beneficial in correlating current findings with functional imaging for further diagnostic support. May benefit from speech therapy intervention to work on compensatory strategies to work around her language deficits. Extra caution driving. Extra repetition of new information, as well as rehearsal of new skills and note taking. New information should be presented in concise and succinct steps to maximize recall. Visual cues and reminders would also be beneficial, as would external memory aids such as a calendar/daily media planner or smart phone. Increased organization around the home and a consistent daily routine to lessen burden on memory. Designate a single location for personal belongings such as keys, purse, glasses, and phone. Establish physical activity for optimal cognitive function, sleep, and stress management. May benefit from resources and education found available at www.alz.org, focusing on PPA information. Neuropsychological reevaluation in 12-18 months to monitor progression, or lack thereof, and updaterecommendations. Thank you for allowing me to participate in the care of this individual. Please contact me with anyquestions at [phone]. documented in this [facility]06-13-2024 Hospital Discharge instructions Follow Up Care 09/18/2023 09:46:59 With:NAIMA VACA, Nitin Nunez, URL Address: [address] [facility] [address] [place] [id number] When: Unknown [facility] 06-13-2024 Hospital Discharge instructions Patient Education 09/18/2023 09:42:31 EU - Cystoscopy with Botox Injection Discharge Instructions (Custom) Cystoscopy with Botox injection Voiding after the procedure: there may be some pain, burning, urgency, frequency and blood tinged urine following the procedure. These symptoms usually resolve within 2-5 days. Drink the amount of fluid it takes to keep the urine pink to yellow or clear in color. Drinking enough water and fluids will help to ease any discomfort after your procedure. It may take a few days to a week to notice a gradual improvement in the overactive bladder symptoms. If you are having problems that seem out of the ordinary, please call. If unable to contact your physician and you feel it is an emergency, go to the nearest emergency room or call 911 Do not lift more than fifteen pounds for 1-2 days. If you see a lot of blood, you probably did too much. Diet you may resume your normal diet. Pain control You may take extra strength Tylenol or Motrin for discomfort. Call if you have a fever over 100 degrees. Follow Up Care 07/11/2023 13:22:11 With:Nitin SINGH Address: [address] [facility] (1) When:3 months Comments:Call for followup appointment. [facility]04-02-2024 Hospital Discharge instructions Patient Education 07/08/2023 14:20:02 Overactive Bladder, Adult Overactive Bladder, Adult Overactive bladder is a condition in which a person has a sudden and frequent need to urinate. A person might also leak urine if he or she cannot get to the bathroom fast enough (urinary incontinence). Sometimes, symptoms can interfere with work or social activities. What are the causes? Overactive bladder is associated with poor nerve signals between your bladder and your brain. Your bladder may get the signal to empty before it is full. You may also have very sensitive muscles thatmake your bladder squeeze too soon. This condition may also be caused by other factors, such as: Medical conditions: ?Urinary tract infection. ?Infection of nearby tissues. ?Prostate enlargement. ?Bladder stones, inflammation, or tumors. ?Diabetes. ?Muscle or nerve weakness, especially from these conditions: ?A spinal cord injury. ?Stroke. ?Multiple sclerosis. ?Parkinson's disease. Other causes: ?Surgery on the uterus or urethra. ?Drinking too much caffeine or alcohol. ?Certain medicines, especially those that eliminate extra fluid in the body (diuretics). ?Constipation. What increases the risk? You may be at greater risk for overactive bladder if you: Are an older adult. Smoke. Are going through menopause. Have prostate problems. Have a neurological disease, such as stroke, dementia, Parkinson's disease, or multiple sclerosis (MS). Eat or drink alcohol, spicy food, caffeine, and other things that irritate the bladder. Are overweight or obese. What are the signs or symptoms? Symptoms of this condition include a sudden, strong urge to urinate. Other symptoms include: Leaking urine. Urinating 8 or more times a day. Waking up to urinate 2 or more times overnight. How is this diagnosed? This condition may be diagnosed based on: Your symptoms and medical history. A physical exam. Blood or urine tests to check for possible causes, such as infection. You may also need to see a health care provider who specializes in urinary tract problems. This is called a urologist. How is this treated? Treatment for overactive bladder depends on the cause of your condition and whether it is mild or severe. Treatment may include: Bladder training, such as: ?Learning to control the urge to urinate by following a schedule to urinate at regular intervals. ?Doing Kegel exercises to strengthen the pelvic floor muscles that support your bladder. Special devices, such as: ?Biofeedback. This uses sensors to help you become aware of your body's signals. ?Electrical stimulation. This uses electrodes placed inside the body (implanted) or outside the body. These electrodes send gentle pulses of electricity to strengthen the nerves or muscles that control the bladder. ?Women may use a plastic device, called a pessary, that fits into the vagina and supports the bladder. Medicines, such as: ?Antibiotics to treat bladder infection. ?Antispasmodics to stop the bladder from releasing urine at the wrong time. ?Tricyclic antidepressants to relax bladder muscles. ?Injections of botulinum toxin type A directly into the bladder tissue to relax bladder muscles. Surgery, such as: ?A device may be implanted to help manage the nerve signals that control urination. ?An electrode may be implanted to stimulate electrical signals in the bladder. ?A procedure may be done to change the shape of the bladder. This is done only in very severe cases. Follow these instructions at home: Eating and drinking Make diet or lifestyle changes recommended by your health care provider. These may include: ?Drinking fluids throughout the day and not only with meals. ?Cutting down on caffeine or alcohol. ?Eating a healthy and balanced diet to prevent constipation. This may include: ?Choosing foods that are high in fiber, such as beans, whole grains, and fresh fruits and vegetables. ?Limiting foods that are high in fat and processed sugars, such as fried and sweet foods. Lifestyle Lose weight if needed. Do not use any products that contain nicotine or tobacco. These include cigarettes, chewing tobacco, and vaping devices, such as e-cigarettes. If you need help quitting, ask your health care provider. General instructions Take lhgj-coe-xohcjox and prescription medicines only as told by your health care provider. If you were prescribed an antibiotic medicine, take it as told by your health care provider. Do notstop taking the antibiotic even if you start to feel better. Use any implants or pessary as told by your health care provider. If needed, wear pads to absorb urine leakage. Keep a log to track how much and when you drink, and when you need to urinate. This will help your health care provider monitor your condition. Keep all follow-up visits. This is important. Contact a health care provider if: You have a fever or chills. Your symptoms do not get better with treatment. Your pain and discomfort get worse. You have more frequent urges to urinate. Get help right away if: You are not able to control your bladder. Summary Overactive bladder refers to a condition in which a person has a sudden and frequent need to urinate. Several conditions may lead to an overactive bladder. Treatment for overactive bladder depends on the cause and severity of your condition. Making lifestyle changes, doing Kegel exercises, keeping a log, and taking medicines can help with this condition. This information is not intended to replace advice given to you by your health care provider. Make sure you discuss any questions you have with your health care provider. Document Revised: 12/11/2020 Document Reviewed: 12/11/2020 [employer] Patient Education 2022 [employer]. Follow Up Care 06/11/2023 14:38:19 With:GUILLE GONZALES, MAGALIS Rincon, URL Address: [address] [place] [phone] When: Unknown Comments:Our office will call to schedule Botox. [facility] 04-02-2024 Evaluation + Plan note Diagnostic Tests Pending * Urine Cytology ([facility]) 07/08/23 Future Scheduled Tests Radiology* CT Urogram 07/08/23 [facility]04-02-2024 Evaluation + Plan note Future Scheduled Tests Radiology* CT Urogram 07/08/23 [facility] 02-28-2024 Hospital Discharge instructions Patient Education 06/04/2023 14:05:25 Ear Irrigation Ear Irrigation Ear irrigation is a procedure to wash dirt and wax out of your ear canal. This procedure is also called lavage. You may need ear irrigation if you are having trouble hearing because of a buildup of earwax. You may also have ear irrigation as part of the treatment for an ear infection. Getting wax and dirt out of your ear canal can help ear drops work better. Tell a health care provider about: Any allergies you have. All medicines you are taking, including vitamins, herbs, eye drops, creams, and itdm-lqn-pwqdxzi medicines. Any problems you or family members have had with anesthetic medicines. Any blood disorders you have. Any surgeries you have had. This includes any ear surgeries. Any medical conditions you have. Whether you are or may be . What are the risks? Generally, this is a safe procedure. However, problems may occur, including: Infection. Pain. Hearing loss. Fluid and debris being pushed through the eardrum and into the middle ear. This can occur if there are holes in the eardrum. Ear irrigation failing to work. What happens before the procedure? You will talk with your provider about the procedure and plan. You may be given ear drops to put in your ear 15 20 minutes before irrigation. This helps loosen the wax. What happens during the procedure? A syringe is filled with water or saline solution, which is made of salt and water. The syringe is gently inserted into the ear canal. The fluid is used to flush out wax and other debris. The procedure may vary among health care providers and hospitals. What can I expect after the procedure? After an ear irrigation, follow instructions given to you by your health care provider. Follow these instructions at home: Using ear irrigation kits Ear irrigation kits are available for use at home. Ask your health care provider if this is an option for you. In general, you should: Use a home irrigation kit only as told by your health care provider. Read the package instructions carefully. Follow the directions for using the syringe. Use water that is room temperature. Do not do ear irrigation at home if you: Have diabetes. Diabetes increases the risk of infection. Have a hole or tear in your eardrum. Have tubes in your ears. Have had any ear surgery in the past. Have been told not to irrigate your ears. Cleaning your ears Clean the outside of your ear with a soft washcloth daily. If told by your health care provider, use a few drops of baby oil, mineral oil, glycerin, hydrogen peroxide, or lcim-rmk-boensxb earwax softening drops. Do not use cotton swabs to clean your ears. These can push wax down into the ear canal. Do not put anything into your ears to try to remove wax. This includes ear candles. General instructions Take mfwl-cse-ydyheeg and prescription medicines only as told by your health care provider. If you were prescribed an antibiotic medicine, use it as told by your health care provider. Do not stop using the antibiotic even if your condition improves. Keep the ear clean and dry by following the instructions from your health care provider. Keep all follow-up visits. This is important. Visit your health care provider at least once a year to have your ears and hearing checked. Contact a health care provider if: Your hearing is not improving or is getting worse. You have pain or redness in your ear. You are dizzy. You have ringing in your ears. You have nausea or vomiting. You have fluid, blood, or pus coming out of your ear. Summary Ear irrigation is a procedure to wash dirt and wax out of your ear canal. This procedure is also called lavage. To perform ear irrigation, ear drops may be put in your ear 15 20 minutes before irrigation. Water or saline solution will be used to flush out earwax and other debris. You may be able to irrigate your ears at home. Ask your health care provider if this is an option for you. Follow your health care provider's instructions. Clean your ears with a soft cloth after irrigation. Do not use cotton swabs to clean your ears. These can push wax down into the ear canal. This information is not intended to replace advice given to you by your health care provider. Make sure you discuss any questions you have with your health care provider. Document Revised: 07/11/2020 Document Reviewed: 07/11/2020 [employer] Patient Education 2022 [employer]. 06/04/2023 14:05:24 Earwax Buildup, Adult Earwax Buildup, Adult The ears produce a substance called earwax that helps keep bacteria out of the ear and protects theskin in the ear canal. Occasionally, earwax can build up in the ear and cause discomfort or hearingloss. What are the causes? This condition is caused by a buildup of earwax. Ear canals are self-cleaning. Ear wax is made in the outer part of the ear canal and generally falls out in small amounts over time. When the self-cleaning mechanism is not working, earwax builds up and can cause decreased hearing and discomfort. Attempting to clean ears with cotton swabs can push the earwax deep into the ear canal and cause decreased hearing and pain. What increases the risk? This condition is more likely to develop in people who: Clean their ears often with cotton swabs. Pick at their ears. Use earplugs or in-ear headphones often, or wear hearing aids. The following factors may also make you more likely to develop this condition: Being male. Being of older age. Naturally producing more earwax. Having narrow ear canals. Having earwax that is overly thick or sticky. Having excess hair in the ear canal. Having eczema. Being dehydrated. What are the signs or symptoms? Symptoms of this condition include: Reduced or muffled hearing. A feeling of fullness in the ear or feeling that the ear is plugged. Fluid coming from the ear. Ear pain or an itchy ear. Ringing in the ear. Coughing. Balance problems. An obvious piece of earwax that can be seen inside the ear canal. How is this diagnosed? This condition may be diagnosed based on: Your symptoms. Your medical history. An ear exam. During the exam, your health care provider will look into your ear with an instrument called an otoscope. You may have tests, including a hearing test. How is this treated? This condition may be treated by: Using ear drops to soften the earwax. Having the earwax removed by a health care provider. The health care provider may: ?Flush the ear with water. ?Use an instrument that has a loop on the end (curette). ?Use a suction device. Having surgery to remove the wax buildup. This may be done in severe cases. Follow these instructions at home: Take wjuq-gky-gclesea and prescription medicines only as told by your health care provider. Do not put any objects, including cotton swabs, into your ear. You can clean the opening of your ear canal with a washcloth or facial tissue. Follow instructions from your health care provider about cleaning your ears. Do not overclean your ears. Drink enough fluid to keep your urine pale yellow. This will help to thin the earwax. Keep all follow-up visits as told. If earwax builds up in your ears often or if you use hearing aids, consider seeing your health care provider for routine, preventive ear cleanings. Ask your health care provider how often you should schedule your cleanings. If you have hearing aids, clean them according to instructions from the sheet metal shop foreman and your health care provider. Contact a health care provider if: You have ear pain. You develop a fever. You have pus or other fluid coming from your ear. You have hearing loss. You have ringing in your ears that does not go away. You feel like the room is spinning (vertigo). Your symptoms do not improve with treatment. Get help right away if: You have bleeding from the affected ear. You have severe ear pain. Summary Earwax can build up in the ear and cause discomfort or hearing loss. The most common symptoms of this condition include reduced or muffled hearing, a feeling of fullness in the ear, or feeling that the ear is plugged. This condition may be diagnosed based on your symptoms, your medical history, and an ear exam. This condition may be treated by using ear drops to soften the earwax or by having the earwax removed by a health care provider. Do not put any objects, including cotton swabs, into your ear. You can clean the opening of your ear canal with a washcloth or facial tissue. This information is not intended to replace advice given to you by your health care provider. Make sure you discuss any questions you have with your health care provider. Document Revised: 07/11/2020 Document Reviewed: 07/11/2020 [employer] Patient Education 2022 [employer]. Follow Up Care 06/04/2023 12:09:08 With:Luann Ford DO, FAM Address: [address] [place] [address]- When: Unknown [facility] 02-01-2024 History of Present illness Narrative* Charlette So - 05/08/2023 2:45 PM EST Images from the original note were not included. Shima Michele is a 82 y.o. female presents with chief complaint of Follow-up of the Left Shoulder HPI: Shima is an 82-year-old right hand dominant female here today to follow-up on her left shoulder. I aspirated and injected a ganglion cyst overlying her AC joint at her initial visit on 04/08/2023. She noted recurrence of the swelling about a week after the procedure. She still does not have any significant pain in the shoulder and is functioning quite well. The mass does not appear to interfere with her function or cause her discomfort. This is mostly a cosmetic issue. SUBJECTIVE: MEDICATIONS: Current Outpatient Medications Medication Instructions atorvastatin (LIPITOR) 40 mg, Oral, Daily hydroCHLOROthiazide (HYDRODIURIL) 12.5 mg, Oral, Daily levothyroxine (Synthroid, Levoxyl) 25 MCG tablet TAKE 1 & 1/2 (ONE & ONE-HALF) TABLETS BY MOUTH ONCE DAILY ON AN EMPTY STOMACH IN THE MORNING oxybutynin XL (DITROPAN-XL) 5 mg, Oral, Daily Ozempic, 1 MG/DOSE, 4 MG/3ML solution pen-injector INJECT 1 MG SUBCUTANEOUSLY ONCE A WEEK venlafaxine XR (EFFEXOR XR) 75 mg, Oral, Daily verapamil ER (VERELAN) 120 mg, Oral, Daily ALLERGIES: No Known Allergies SURGICAL HISTORY: Past Surgical History: Procedure Laterality Date HYSTERECTOMY 1987 KNEE ARTHROSCOPY W/ DEBRIDEMENT ROTATOR CUFF REPAIR Bilateral 2005 TONSILLECTOMY 1950 TOTAL KNEE ARTHROPLASTY Bilateral FAMILY HISTORY: Family History Problem Relation Name Age of Onset Prostate cancer Father Cancer Other Heart disease Other SOCIAL HISTORY: Social History Tobacco Use Smoking status: Never Smokeless tobacco: Never Vaping Use Vaping Use: Never used Substance Use Topics Alcohol use: Yes Drug use: Defer Depression: Not on file REVIEW OF SYMPTOMS: The review of systems, history and current medications list are all reviewed today. OBJECTIVE: Visit Vitals Temp 97.2 F Ht 5' Wt 150 lb BMI 29.29 kg/m Smoking Status Never BSA 1.7 m Physical Exam She is alert and oriented, well nourished, well hydrated female in no acute distress. Mood and affect are appropriate. She is ambulating independently. LEFT SHOULDER The soft tissue mass is once again seen over the AC joint. This measures 6 cm x 4 cm in diameter. There is not much change compared to her initial visit. There are no overlying skin changes. There isno sign of infection. She can raise her arm overhead. She has well-healed arthroscopy portals. Passive forward flexion is to 150 degrees. Abduction is to 80 degrees. External rotation with the arm abducted 70 degrees. There is crepitus with range of motion. There is good strength with forward flexion, internal and external rotation. Negative belly- press test. No Godro deformity. RIGHT SHOULDER She has well-healed arthroscopy portals. There is no swelling. There is no soft tissue mass. She can raise her arm overhead. There is crepitus with passive motion. There is mild weakness with forwardflexion. Negative belly-press test. Good strength with resisted supination. ASSESSMENT AND PLAN: Assessment/Plan 82-year-old right hand dominant female: 1. 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 2. History of arthroscopic rotator cuff repair. I reviewed the history, physical examination, and diagnosis with the patient. We discussed various treatment options ranging from continued observation, repeat aspiration and injection understanding that this will likely lead to recurrence, and surgical excision of the mass with distal clavicle resection. Shima would like to continue with conservative measures. She does not wish to pursue repeat aspiration and injection today. Follow-up p.r.n. She will be returning with her next month when he follows up for his orthopedic issue. A total of 30 to 39 minutes was spent on this patient encounter which included chart review, check in, nurse triage, history taking, physical examination, diagnostic study review, patient counseling and discussion, entering information into the patient's medical record, and coordinating patient care. Eddie Sidhu D.O. documented in this encounterUniversity [id number] Hospital Discharge instructions Patient Education 08/15/2022 14:34:30 Facial or Scalp Contusion Facial or Scalp Contusion A facial or scalp contusion is a bruise (contusion) on the face or head. Contusions are the result of a direct force (blunttrauma) to the face or scalp that has caused bleeding under the skin. The contusion may turn blue, purple, or yellow (discoloration). Minor injuries may cause a painless contusion, but more severe contusions may stay painful and swollen for a few weeks. Injuries to the face and head generally cause a lot of swelling and discoloration, especially around the eyes. Contusions by themselves are generally not life threatening. You may have a contusion along with other injuries, such as broken bones (fractures), cuts, and injuries to blood vessels. What are the causes? A facial or scalp contusion is caused by a injury, fall, or trauma to the face or head area. Contusions may result from: Motor vehicle accidents. Sports injuries. Assault injuries. What are the signs or symptoms? Symptoms of this condition include: Swelling of the injured area. The swelling may be in a small area (localized) and very noticeable. Discoloration of the injured area. Tenderness, soreness, or pain in the injured area. In addition to symptoms of contusions, if you have facial fractures, you may have a change in the appearance of your nose, may not be able to close your mouth, and may have vision changes. How is this diagnosed? This condition is diagnosed based on your medical history and a physical exam. An X-ray exam, CT scan, or MRI may be needed to check for any additional injuries. In some cases, your health care provider may need to do more examinations of your nose, eyes, or jaw. How is this treated? Often, the best treatment for a facial or scalp contusion is applying cold compresses to the injured area. Qmrt-vob-roswtru medicines may also be recommended to help relieve pain. If there are any cuts (lacerations), these will need to be repaired as well. Any deeper injuries may require treatment and follow up with a specialist, such as a facial surgeon or an senior quality assurance specialist (engineering production liaison). Follow these instructions at home: Managing pain, stiffness, and swelling If directed, put ice on the injured area. To do this: ?Put ice in a plastic bag. ?Place a towel between your skin and the bag. ?Leave the ice on for 20 minutes, 2 3 times a day. ?Remove the ice if your skin turns bright red. This is very important. If you cannot feel pain, heat, or cold, you have a greater risk of damage to the area. Raise (elevate) the injured area above the level of your heart while you are sitting or lying down. General instructions Take oywh-igc-ycnbtvu and prescription medicines only as told by your health care provider. Rest as told by your health care provider. Return to your normal activities as told by your health care provider. Ask your health care provider what activities are safe for you. Do not blow your nose if you have any facial fractures. Eat soft foods if you are having jaw pain. Keep all follow-up visits. This is important. Contact a health care provider if: You have trouble biting or chewing. Your pain or swelling gets worse. The discolored area gets much worse. Get help right away if: You have severe pain or a headache that is not relieved by medicine. You have unusual sleepiness, confusion, or personality changes. You vomit. You have a nosebleed that does not stop. You have double vision or blurred vision. You have clear fluid draining from your nose or ear, and it does not go away. You have trouble walking or using your arms or legs. You have severe dizziness. Summary A facial or scalp contusion is a bruise (contusion) on the face or head. Contusions are the result of an injury that caused bleeding and swelling under the skin. Minor contusions will have mild symptoms, but more severe contusions may stay painful and swollen for a few weeks. Some facial and head contusions may be associated with other more serious injuries. Go to a health care provider if you have vision changes, bleeding from your face or nose, or you are not able to tobite down normally. Often, the best treatment for a facial or scalp contusion is applying cold compresses to the injured area. This information is not intended to replace advice given to you by your health care provider. Make sure you discuss any questions you have with your health care provider. Document Revised: 04/30/2021 Document Reviewed: 04/30/2021 [employer] Patient Education 2022 [employer]. 08/15/2022 14:34:30 Head Injury, Adult Head Injury, Adult There are many types of head injuries. Head injuries can be as minor as a small bump, or they can be a serious medical issue. More severe head injuries include: A jarring injury to the brain (concussion). A bruise (contusion) of the brain. This means there is bleeding in the brain that can cause swelling. A cracked skull (skull fracture). Bleeding in the brain that collects, clots, and forms a bump (hematoma). After a head injury, most problems occur within the first 24 hours, but side effects may occur up to 7 10 days after the injury. It is important to watch your condition for any changes. You may need to be observed in the emergency department or urgent care, or you may be admitted to the hospital. What are the causes? There are many possible causes of a head injury. Serious head injuries may be caused by car accidents, bicycle or motorcycle accidents, sports injuries, falls, or being struck by an object. What are the symptoms? Symptoms of a head injury include a contusion, bump, or bleeding at the site of the injury. Other physical symptoms may include: Headache. Nausea or vomiting. Dizziness. Blurred or double vision. Being uncomfortable around bright lights or loud noises. Seizures. Feeling tired. Trouble being awakened. Loss of consciousness. Mental or emotional symptoms may include: Irritability. Confusion and memory problems. Poor attention and concentration. Changes in eating or sleeping habits. Anxiety or depression. How is this diagnosed? This condition can usually be diagnosed based on your symptoms, a description of the injury, and a physical exam. You may also have imaging tests done, such as a CT scan or an MRI. How is this treated? Treatment for this condition depends on the severity and type of injury you have. The main goal of treatment is to prevent complications and allow the brain time to heal. Mild head injury If you have a mild head injury, you may be sent home, and treatment may include: Observation. A responsible adult should stay with you for 24 hours after your injury and check on you often. Physical rest. Brain rest. Pain medicines. Severe head injury If you have a severe head injury, treatment may include: Close observation. This includes hospitalization with the following care: ?Frequent physical exams. ?Frequent checks of how your brain and nervous system are working (neurological status). ?Checking your blood pressure and oxygen levels. Medicines to relieve pain, prevent seizures, and decrease brain swelling. Airway protection and breathing support. This may include using a ventilator. Treatments that monitor and manage swelling inside the brain. Brain surgery. This may be needed to: ?Remove a collection of blood or blood clots. ?Stop the bleeding. ?Remove a part of the skull to allow room for the brain to swell. Follow these instructions at home: Activity Rest and avoid activities that are physically hard or tiring. Make sure you get enough sleep. Let your brain rest by limiting activities that require a lot of thought or attention, such as: ?Watching TV. ?Playing memory games and puzzles. ?Job-related work or homework. ?Working on the computer, using social media, and texting. Avoid activities that could cause another head injury, such as playing sports, until your health care provider approves. Having another head injury, especially before the first one has healed, can bedangerous. Ask your health care provider when it is safe for you to return to your regular activities, including work or school. Ask your health care provider for a mjua-ae-hsvm plan for gradually returning to activities. Ask your health care provider when you can drive, ride a bicycle, or use heavy machinery. Your ability to react may be slower after a brain injury. Do not do these activities if you are dizzy. Lifestyle Do not drink alcohol until your health care provider approves. Do not use drugs. Alcohol and certain drugs may slow your recovery and can put you at risk of further injury. If it is harder than usual to remember things, write them down. If you are easily distracted, try to do one thing at a time. Talk with family members or close friends when making important decisions. Tell your friends, family, a trusted colleague, and reel worker about your injury, symptoms, and restrictions. Have them watch for any new or worsening problems. General instructions Take emyn-kfu-uqdrszp and prescription medicines only as told by your health care provider. Have someone stay with you for 24 hours after your head injury. This person should watch you for any changes in your symptoms and be ready to seek medical help. Keep all follow-up visits as told by your health care provider. This is important. How is this prevented? Work on improving your balance and strength to avoid falls. Wear a seat belt when you are in a moving vehicle. Wear a helmet when riding a bicycle, skiing, or doing any other sport or activity that has a risk of injury. If you drink alcohol: ?Limit how much you use to: ?0 1 drink a day for non women. ?0 2 drinks a day for men. ?Be aware of how much alcohol is in your drink. In the [place] one drink equals one 12 oz bottle of beer (355 mL), one 5 oz glass of wine (148 mL), or one 1 oz glass of hard liquor (44 mL). Take safety measures in your home, such as: ?Removing clutter and tripping hazards from floors and stairways. ?Using grab bars in bathrooms and handrails by stairs. ?Placing non-slip mats on floors and in bathtubs. ?Improving lighting in dim areas. Where to find more information Centers for Disease Control and Prevention: www.cdc.gov Get help right away if: You have: ?A severe headache that is not helped by medicine. ?Trouble walking or weakness in your arms and legs. ?Clear or bloody fluid coming from your nose or ears. ?Changes in your vision. ?A seizure. ?Increased confusion or irritability. Your symptoms get worse. You are sleepier than normal and have trouble staying awake. You lose your balance. Your pupils change size. Your speech is slurred. Your dizziness gets worse. You vomit. These symptoms may represent a serious problem that is an emergency. Do not wait to see if the symptoms will go away. Get medical help right away. Call your local emergency services (911 in the [place] Do not drive yourself to the hospital. Summary Head injuries can be minor, or they can be a serious medical issue requiring immediate attention. Treatment for this condition depends on the severity and type of injury you have. Have someone stay with you for 24 hours after your injury and check on you often. Ask your health care provider when it is safe for you to return to your regular activities, including work or school. Head injury prevention includes wearing a seat belt in a motor vehicle, using a helmet on a bicycle, limiting alcohol use, and taking safety measures in your home. This information is not intended to replace advice given to you by your health care provider. Make sure you discuss any questions you have with your health care provider. Document Revised: 02/04/2020 Document Reviewed: 02/04/2020 Elsevier Patient Education 2022 [employer]. Follow Up Care 08/15/2022 12:33:28 With:Dawson Link Address: [address], [facility] [address] [facility] [place] [address]- Business (1) When:08/18/2022 14:04:35 [facility]05-11-2023 Evaluation + Plan noteExtracted from: Title:ED NoteAuthor:Ml GONZALES, JansenDate:08/15/22 Fall (W19.XXXA: Unspecified fall, initial encounter) Head injury (S09.90XA: Unspecified injury of head, initial encounter) Orders: tetanus/diphtheria/pertussis, acel (Tdap), 0.5 mL, Injection, Intramuscular- Immunization, Once, Stop date 08/15/22 14:04:00 EDT, STAT, Start date 08/15/22 14:04:[address] Head or Brain w/o Contrast CT Spine Cervical w/o Contrast [facility]04-11-2023 Evaluation note* Encounter Date Diagnosis Assessment Notes Treatment Notes Treatment Clinical Notes Jul, Arthritis of right glenohumeral joint (ICD-10 - M19.011) A 1/1cc marcaine / kenalog cortisone injection was performed into the subacromial space under sterile technique. Patient tolerated the injection well with no adverse reaction. Examination and assessment of this patient was performed by Magalis Power NP and patient will continue with the treatment plan per Dr. Werner, who initiated this treatment plan. Dr. Werner is present in the office today and providing supervision. Jul,Nontraumatic tear of right rotator cuff, unspecified tear extent (ICD-10 - M75.101) Jul,cute pain of right shoulder (ICD-10 - M25.511) [facility] Other 03-22-2022 Hospital Discharge instructions Patient Education 06/26/2021 13:22:41 Core Measures: Stroke (Cerebrovascular Accident) [facility] [place], ([place]) Stroke (Cerebrovascular Accident) A stroke is acute of brain tissue, and it is a neurologic emergency. A stroke can cause permanent loss of function of the central nervous system (brain). If the symptoms of a stroke end withoutcomplications in 24 hours, it is diagnosed as a transient ischemic attack (TIA). If the symptoms are not resolved within 24 hours, it is defined as a stroke. CAUSES A stroke is caused by a decrease of oxygen supply to an area of your brain. It is usually the result of a small blood clot or hardening of the arteries. Blockages in, or damage to, the carotid arteries leading to the brain can also cause a stroke. Bleeding in the brain can cause, or accompany, a stroke. SYMPTOMS These symptoms usually develop suddenly (or may be newly present upon awakening from sleep): Loss of vision. Double vision. Confusion. Numbness or weakness on one side of the face or body. Inability to speak (aphasia). DIAGNOSIS Your caregiver can often determine the presence or absence of a stroke based on your symptoms, history, and examination. A CT scan of the brain is usually performed to confirm the stroke, look for causes, and determine the severity. Other tests may be done to find the cause of the stroke, including: An EKG and heart monitoring. An echocardiogram (ultrasound evaluation of the heart). An ultrasound evaluation of your carotid arteries. Determination of blood oxygen level and blood tests. PREVENTION The likelihood of a stroke can be decreased by appropriate treatment of high blood pressure, high cholesterol, diabetes, and by stopping smoking. RISK FACTORS: If you have been told by your doctor or nurse practitioner that you have any of the following risk factors for stroke, work with your health care navigator to control them. High Blood Pressure: High blood pressure is one of the main causes of stroke. It is the most important risk factor to control. Take your blood pressure medication, lose weight, increase your activity, and limit your salt intake to help control your blood pressure.Take your your blood pressure and write it down and then take them to your next doctor's appointment. Smoking: If you smoke: QUIT! We can help. Please call [facility] at [phone] ([facility] [place]), or [phone], ext. [phone] Diabetes: Work with your healthcare professional to keep your blood sugar under control. Check yourblood sugar and take the results to your next doctor's visit. Take your medications as directed. Eating a healthy diet and exercising will also help keep your diabetes under control. For information on [facility] please call, . Carotid or other Artery Diseases: The carotid arteries in your neck carry blood to the brain. A stroke can be caused by a blood clot blocking an artery that has been damaged by a fatty buildup insidethe artery wall. Discuss ways to manage this with your health care provider. Atrial Fibrillation (A Fib): In A fib, your heart does not have a normal beat. This may allow clotsto form and puts you at a greater risk for having a stroke. Work with your health care provider to control your A fib. Your doctor may order special medication that helps prevent clots from forming. High blood cholesterol or high blood fats: High cholesterol increases your risk of stroke. Exerciseregularly, but talk to your health care provider first. A diet low in fat and cholesterol can help.If you have any questions about a low fat, low cholesterol diet, you can call our [facility] reserves clerk at [phone] Ext. [phone]. The goal for total cholesterol is less than 200, and for LDL or thebad cholesterol is less than 100. Lifestyle Management: You increase your risk of stroke if you are overweight or obese, are not veryactive, or drink too much alcohol. Enjoy a diet rich in fruits and vegetables. Exercise regularly and drink alcohol in moderation or no more than two drinks a day for men and no more than one drink aday for non- women, or don't drink at all. This will help decrease your risk of stroke. Oral Contraceptives: Taking control pills or the pill can be a risk factor for stroke especially if you smoke. Discuss using the oral contraceptives and your risk of stroke with your health care navigator. TREATMENT TIME IS OF THE ESSENCE! Medications to dissolve a blood clot can only be used within four and a half hours of the onset of symptoms. After that time, treatment of stroke depends on duration of symptoms, severity, and cause. Medications and diet measures may be used to address diabetes, high blood pr essure, and other risk factors. Physical therapy, speech therapy, and occupational therapy specialists will assess you and work to improve any functions impaired by the stroke. Measures will be takento prevent short and salvage determiner complications, including aspiration pneumonia, blood clots in the leg s, bedsores, and falls. HOME CARE INSTRUCTIONS Care at home after a stroke can be complicated. Medications Blood thinners may be used to prevent another stroke. Blood thinners need to be used exactly as instructed. Medicines may also be used to control risk factors for a stroke. Be sure you understand all your medication instructions. It is very important to not run out of your medicine. Getmore while you still have a one-week supply. Do not stop taking your medicine without speaking to your healthcare professional. Take all of your medications or an updated list of your medications to all of your doctor's appointments. Physical, occupational, and speech therapy Ongoing therapy is often necessary to maximize recovery after a stroke. If you have been advised to use a walker or a cane, use it at all times. Be sure youkeep your therapy appointments. Diet Certain diets may be prescribed to address high blood pressure, high cholesterol, or diabetes.Foods may need to be a special consistency (soft, pureed, small bites) to avoid food going into your lungs or choking. Home safety A safe home environment is important to reduce the risk of falls. Your caregiver may arrange for specialists to evaluate your home. Grab bars in the bedroom and bathroom are often important. Your caregiver may arrange for special equipment to be used at home, such as raised toilets and a seat for the shower. It s important to know and control your risk factors, but it is also important to recognize the signs and symptoms of stroke/TIA and know what to do: Call 911 if any of these things happen: Sudden numbness or weakness of the face, arm, or leg especially on one side of the body. Sudden confusion, trouble speaking, or understanding. Sudden trouble seeing in one or both eyes. Sudden trouble walking, dizziness, loss of balance or coordination Sudden severe headache with no known cause * It is very important for you to follow-up with your Primary Care Doctor and your Neurologist after you go home. Make sure that you keep your doctor visits. Remember: TIME LOST is BRAIN LOST Resources: for more information on strokes, log onto www.[employer].com or www.strokeassociation.org or call the [place] [employer] at (024) 339- [phone]. Revised 04/201806/26/2021 13:22:41 Core Measures Transient Ischemic Attack (TIA) [facility] (Custom) Transient Ischemic Attack You have had a transient ischemic attack (TIA). This means that the nervous system did not work properly for a short time. It is caused by a low oxygen supply to an area of your brain. It may be caused by a small blood clot or hardening of the arteries. This is a temporary neurologic condition. It usually gets better within thirty minutes, but always within twenty-four hours. If this does not resolve within that time period, it is defined as a stroke. TIA's are warning signs that you are at risk for having a stroke. A small percentage of patients who have had a TIA will have a stroke within acouple days, and up to 20% will have a stroke within 3 months. PREVENTION The likelihood of a stroke can be decreased by appropriate treatment of high blood pressure, high cholesterol, diabetes, and by stopping smoking. RISK FACTORS: If you have been told by your doctor or nurse practitioner that you have any of the following risk factors for stroke, work with your health care navigator to control them. Risk Factors: High Blood Pressure: High blood pressure is one of the main causes of stroke. It is the most important risk factor to control. Take your blood pressure medication, lose weight, increase your activity, and limit your salt intake to help control your blood pressure.Take your your blood pressure and write it down and then take them to your next doctor's appointment. Smoking: If you smoke: QUIT! We can help. Please call [facility] at [phone] ([facility]), or [phone], ext. [phone] Diabetes: Work with your healthcare professional to keep your blood sugar under control. Check yourblood sugar and take the results to your next doctor's visit. Take your medications as directed. Eating a healthy diet and exercising will also help keep your diabetes under control. For information on [facility] please call, . Carotid or other Artery Diseases: The carotid arteries in your neck carry blood to the brain. A stroke can be caused by a blood clot blocking an artery that has been damaged by a fatty buildup insidethe artery wall. Discuss ways to manage this with your health care provider. Atrial Fibrillation (A Fib): In A fib, your heart does not have a normal beat. This may allow clotsto form and puts you at a greater risk for having a stroke. Work with your health care provider to control your A fib. Your doctor may order special medication that helps prevent clots from forming. High blood cholesterol or high blood fats: High cholesterol increases your risk of stroke. Exerciseregularly, but talk to your health care provider first. A diet low in fat and cholesterol can help.If you have any questions about a low fat, low cholesterol diet, you can call our [employer] clerk at [phone] ext [phone]. The goal for total cholesterol is less than 200, and for LDL or the bad cholesterol is less than 100. Lifestyle Management: You increase your risk of stroke if you are overweight or obese, are not veryactive, or drink too much alcohol. Enjoy a diet rich in fruits and vegetables. Exercise regularly and drink alcohol in moderation or no more than two drinks a day for men and no more than one drink aday for non- women, or don't drink at all. This will help decrease your risk of stroke. Oral Contraceptives: Taking control pills or the pill can be a risk factor for stroke especially if you smoke. Discuss using the oral contraceptives and your risk of stroke with your health care navigator. If this is your first ischemic attack, you will need further evaluation by your caregiver. You may need appropriate treatment and lifestyle changes as recommended. A certain number of patients with TIA go on to develop a stroke. It is very important that you follow up, as instructed, with your caregiver or a specialist in order to continue your evaluation and decide on a course of treatment. The failure to follow up in the time frame indicated by your caregiver may lead to worsening of your condition and permanent disability and possible .If you develop signs and symptoms of a stroke, TIME IS OF THE ESSENCE! Call 911. Medications to dissolve a blood clot can only be used within four and a half hours of the onset of symptoms.After that time, treatment of stroke depends on duration of symptoms, severity, and cause. It s important to know and control your risk factors, but it is also important to recognize the signs and symptoms of stroke/TIA and know what to do: Call 911 if any of these things happen: Sudden numbness or weakness of the face, arm, or leg especially on one side of the body. Sudden confusion, trouble speaking, or understanding. Sudden trouble seeing in one or both eyes. Sudden trouble walking, dizziness, loss of balance or coordination Sudden severe headache with no known cause * It is very important for you to follow-up with your Primary Care Doctor and your Neurologist after you go home. Make sure that you keep your doctor visits. Remember: TIME LOST is BRAIN LOST Resources: for more information on strokes, log onto www[email or web address] [email or web address] or www.strokeassociation.org or call the [employer] at . Revised 04/2018 Follow Up Care 06/25/2021 15:18:35 With:Matti Baird MD, NEU Address: [facility] [address] [address] Business (1) When:07/30/2021 10:00:00 With:Dawson Giron Address: [facility] [address] [place] [address] Business (1) When:07/03/2021 13:00:00 [facility]03-22-2022 Evaluation + Plan noteExtracted from: Title:Discharge NoteAuthor:Brenna VACA, [facility]ate:06/26/21 1. Paresthesia of arm (R20.2: Paresthesia of skin) -Resolved -Follow-up with neurology Ordered: Initial Observation Care/Day Moderate 50 min 92916 2. HTN (hypertension) (I10: Essential (primary) hypertension) Chronic follow up w/PCP Ordered: Initial Observation Care/Day Moderate 50 min 13040 3. SVT [Supraventricular tachycardia] (I47.1: Supraventricular tachycardia) Chronic, follow up w/PCP Ordered: Initial Observation Care/Day Moderate 50 min 08871 4. Hypothyroid (E03.9: Hypothyroidism, unspecified) Chronic, follow up w/PCP Ordered: Initial Observation Care/Day Moderate 50 min 17905 5. Depression (F32.A: Depression, unspecified) Chronic, follow up w/PCP Ordered: Initial Observation Care/Day Moderate 50 min 95084 6. Esophageal reflux (K21.9: Gastro-esophageal reflux disease without esophagitis) Chronic, follow up w/PCP Ordered: Initial Observation Care/Day Moderate 50 min 56005 7. Hyperlipidemia (E78.5: Hyperlipidemia, unspecified) Chronic, follow up w/PCP Ordered: Initial Observation Care/Day Moderate 50 min 50002 8. Obesity (E66.9: Obesity, unspecified) Lifestyle modifications Ordered: Initial Observation Care/Day Moderate 50 min 90764 Orders: enoxaparin, 40 mg = 0.4 mL, Injection, SubCutaneous, Daily, Routine, Start date 06/26/21 9:00:00 EDT Ambulate with Assistance Automated Diff Basic Metabolic Panel Below the Knee Intermittent Pneumatic Compression Device Cardiac Monitoring CBC w/ Auto Diff Communication Order Communication Order Pharmacy to Nursing Communication Order Physician to Nursing Communication Order Physician to Nursing Consult to Neurology Dysphagia Screen eGFR Elevate Head of Bed Evaluate Need For Continued Telemetry MRA Head w/o Contrast MRI Brain w/o Contrast Neurological Assessment Neurological Assessment Occupational Therapy Evaluate Patient, Develop a Plan of Care and Implement Plan Physical Therapy Evaluate Patient, Develop a Plan of Care and Implement Plan Place in Status Pulse Oximetry Regular Diet Resuscitation Status - Full Stroke Education Stroke Quality Measures TSH With T4fr Reflex US Carotid Duplex Bilateral Vital Signs Weight Prescriptions No active prescription medications Home Aspir 81, 81 mg, Oral, Daily atorvastatin 10 mg Tab, 10 mg= 1 tab(s), Oral, Daily levothyroxine 25 mcg (0.025 mg) Tab, 37.5 mcg= 1.5 tab(s), Oral, Daily Multivitamins and Minerals, 1 tab(s), Oral, Daily omeprazole 20 mg Cap-DR, 20 mg= 1 cap(s), Oral, Daily venlafaxine 75 mg oral tablet, extended release, 75 mg= 1 tab(s), Oral, Daily verapamil 120 mg Cap-ER, 120 mg= 1 cap(s), Oral, Daily With When Contact Information Matti Baird MD, NEU 07/30/2021 10:00 AM EDT [facility] [address] [address]- Business (1) Additional Instructions: Dawson Giron 07/03/2021 01:00 PM EDT [address] [place] [address]- Business (1) Additional Instructions: Core Measures: Stroke (Cerebrovascular Accident) [facility], (Custom) Core Measures Transient Ischemic Attack (TIA) [facility] (Custom) Extracted from:Title:Consult Note- NeurologyAuthor:Eric ALBARADO, Caprice Mullen: 06/26/21 The patient is a 81-year-old right-handed white female with a history of Hypertension, hyperlipidemia, was admitted to the hospital with sudden onset of Vertigo and left arm paresthesias. Possible etiologies include cerebral ischemia or transient ischemic attack secondary to artery to artery embolus, cerebral artery thrombosis, or cardioembolic event. I cannot exclude cerebral hypoperfusion from intracranial or extracranial cerebral artery stenosis contributing to the patient's symptoms. Due to the high morbidity and mortality associated with stroke the patient is admitted to the hospital for further workup and evaluation. -I have personally reviewed and reviewed with the patient the MRI of the brain which does not reveal evidence of cerebral ischemia or other intracranial process which may be contributing to the patient's symptoms To my interpretation -I have personally reviewed and reviewed with the patient the MR angiogram of the brain which does not reveal evidence of any intracranial cerebral artery stenosis To my interpretation -I We will await the results of the ultrasound of the carotid arteries To assess for evidence of significant carotid artery stenosis which may contribute to artery to artery embolus or cerebral hypoperfusion Normal Recommendations based upon these results -I recommend obtaining a Transcranial Doppler to assess for posterior circulation as an outpatient. -I recommend Aspirin 81 mg daily for secondary stroke prevention And will make further recommendations Based upon the above results -I recommend to continue monitoring the patient's blood pressure and medications to keep them normotensive as an inpatient and outpatient -I recommend to continue monitoring the patient's blood sugar to keep them normoglycemic as an inpatient and outpatient -I recommend the speech therapy assessment -I recommend the physical therapy and occupational therapy assessment -I recommend DVT prevention with SCD stockings or an equivalent -I counseled the patient on the possible diagnoses, prognosis, evaluation, and treatment options. Ianswered all questions. -I discussed the above recommendations with the hospitalist -I recommend the patient follow up in adult outpatient neurology clinic 1. Paresthesia of arm (R20.2: Paresthesia of skin) 2. HTN (hypertension) (I10: Essential (primary) hypertension) 3. SVT [Supraventricular tachycardia] (I47.1: Supraventricular tachycardia) 4. Hypothyroid (E03.9: Hypothyroidism, unspecified) 5. Depression (F32.A: Depression, unspecified) 6. Esophageal reflux (K21.9: Gastro-esophageal reflux disease without esophagitis) 7. Hyperlipidemia (E78.5: Hyperlipidemia, unspecified) 8. Obesity (E66.9: Obesity, unspecified) Extracted from:Title:Admission H & PAuthor:Brenna VACA, madDate:06/25/21 Paresthesia of arm -Acute, resolved -TIA, radiculopathy, much less likely CVA -CT scan w/out acute events -MRI brain/MRA/Echo/Car. U/S -CBC/BMP/Lipid/A1c -Neurology consulted HTN -Chronic -Monitor and treat w/home medications SVT -S/P Ablation -Med rec then resume medications Hypothyroidism -Checking TSH w/reflex T4 -Resume home medications HLD -Chronic -Continue w/home medications Obesity -Patient's BMI >30. Lifestyle modifications encouraged. Obesity is a pro- inflammatory state likely affecting above medical processes. Outpatient follow up. Depression -Chronic, denies suicidal ideation or homicidal ideation -Supportive care and continue w/home medications GERD -Chronic, no stigmata of bleeding -Supportive care and PPI Chronic Medical Conditions Med rec then resume home medications Code: Full Diet: Cardiac DVT prophylaxis: Lovenox Admit: Observation, likely <2 midnight stay Plan: Plan was discussed with patient and family (if applicable) at bedside 1. Paresthesia of arm (R20.2: Paresthesia of skin) 2. HTN (hypertension) (I10: Essential (primary) hypertension) 3. SVT [Supraventricular tachycardia] (I47.1: Supraventricular tachycardia) 4. Hypothyroid (E03.9: Hypothyroidism, unspecified) 5. Depression (F32.A: Depression, unspecified) 6. Esophageal reflux (K21.9: Gastro-esophageal reflux disease without esophagitis) 7. Hyperlipidemia (E78.5: Hyperlipidemia, unspecified) 8. Obesity (E66.9: Obesity, unspecified) Orders: enoxaparin, 40 mg = 0.4 mL, Injection, SubCutaneous, Daily, Routine, Start date 06/26/21 9:00:00 EDT Ambulate with Assistance Basic Metabolic Panel Below the Knee Intermittent Pneumatic Compression Device Cardiac Monitoring CBC w/ Auto Diff Communication Order Communication Order Pharmacy to Nursing Communication Order Physician to Nursing Communication Order Physician to Nursing Consult to Neurology Dysphagia Screen Elevate Head of Bed Evaluate Need For Continued Telemetry MRA Head w/o Contrast MRI Brain w/o Contrast Neurological Assessment Neurological Assessment Occupational Therapy Evaluate Patient, Develop a Plan of Care and Implement Plan Physical Therapy Evaluate Patient, Develop a Plan of Care and Implement Plan Place in Status Pulse Oximetry Resuscitation Status - Full Speech Language Pathology Evaluate Patient, Develop a Plan of Care and Implement Plan Speech Language Pathology Swallow Eval; Evaluate Pt, Develop a Plan of Care & Implement Plan Stroke Education Stroke Quality Measures TSH With T4fr Reflex US Carotid Duplex Bilateral Vital Signs Weight Extracted from:Title:ED NoteAuthor:Hermes Varela DODate:06/25/21 Paresthesia of arm (R20.2: P aresthesia of skin) TIA (transient ischemic attack) (G45.9: Transient cerebral ischemic attack, unspecified) Vertigo (R42: Dizziness and giddiness) Orders: Automated Diff Basic Metabolic Panel CBC w/ Auto Diff [place] Stroke Scale Communication Order Physician to Nursing Continuous Pulse Oximetry CT Head or Brain w/o Contrast ECG 12 Lead Adult ED Cardiac Monitoring eGFR NPO Diet Oxygen Therapy PT & PTT Routine Capillary Glucose POC Saline Lock Insert Stroke Quality Measures Troponin 0 Hr. 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 We discussed the importance of maintaining shoulder motion and gentle cuff strengthening exericse. Discussed the use of anti-inflammatory medication. Discussed that occasional cortisone injection may be helpful for pain relief. Discussed surgical options including arthroscopy and arthroplasty replacement options. A 2/1cc marcaine / kenalog cortisone injection was performed into the subacromial space under sterile technique. Patient tolerated the injection well with no adverse reaction. Jan,Nontraumatic tear of right rotator cuff, unspecified tear extent (ICD-10 - M75.101) 28 Oct, 2021Acute pain of right shoulder (ICD-10 - M25.511) [place] [facility] Other Evaluation + Plan note Future Appointments Appointment Date:07/24/2022 11:30:00 AM Scheduled Provider:Nitin SINGH MD Location:[facility] App[facility]ment [facility] Future Appointments Appointment Date:09/11/2023 11:30:00 AM Scheduled Provider: Location:[facility] Appointment Type:Urology CALL PAT FT Appointment Date:09/18/2023 09:30:00 AM Scheduled Provider: Location:[facility] Appointment Type:[facility] Future Appointments Appointment Date:09/18/2023 09:30:00 AM Scheduled Provider: Location:[facility] Appointment [facility] Future Appointments Appointment Date:12/10/2023 10:15:00 AM Scheduled Provider:Nitin SINGH MD Location:[facility] Appointment [facility] Future Appointments Appointment Date:12/10/2023 10:15:00 AM Scheduled Provider:Nitin SINGH MD Location:[facility] Appointment Type:URO Office Visit Diagnostic Tests Pending * Methylmalonic Acid 10[facility]21/23 [facility] Future Appointments Appointment Date:12/15/2023 09:00:00 AM Scheduled Provider:Vee Allen Location:[facility] Appointment Type:URO Office Visit [facility] Evaluation noteNo assessment information available [facility] Work Phone: Evaluation note* Diagnosis Primary progressive aphasia (CMS/HCC)- Primary History of TIA (transient ischemic attack) [facility] Diagnosis Primary progressive aphasia (CMS/HCC)- Primary Memory loss Word finding difficulty History of TIA (transient ischemic attack) Anxiety Anxiety state, unspecified [facility] Diagnosis Primary progressive aphasia (CMS/HCC)- Primary Frontotemporal dementia (CMS/HCC) History of TIA (transient ischemic attack) Word finding difficulty [facility] Diagnosis Dry eyes- Primary Unspecified tear film insufficiency Blepharitis of upper and lower eyelids of both eyes, unspecified type [facility] Diagnosis Primary progressive aphasia (CMS/HCC)- Primary Frontotemporal dementia History of TIA (transient ischemic attack) [facility]* Diagnosis Left shoulder pain, unspecified chronicity- Primary [facility]* Diagnosis Chronic laryngitis- Primary LPRD (laryngopharyngeal reflux disease) Acute laryngitis, without mention of obstruction Hoarse Dysphonia [facility] N[facility]ative - Reported* Type Description Date Medical History supraventricular tachycardia Medical Historyhigh cholesterolMedical Historyskin cancersSurgical History hysterectomySurgical Historyknee replacement left and rightSurgical Historyright shoulder cuff [id number] Historysee above [facility] Other History of Present illness NarrativePatient returns in follow-up of problems as noted. She doing well and denies any palpitations or breakthroughs of supraventricular tachycardia. Because of this we believe she is doing well. We note that her blood pressure and cholesterol adequately treated because of this no adjustments are recommended. We advocated diet exercise and weight loss and she understands her recommendations and will attempt to implement them.[facility] [address] DO Work Phone: History of Present illness NarrativePatient returns in follow-up of problems as noted. She is done well. She denies any breakthroughs of supraventricular tachycardia nor palpitations and because of this we believe she is doing well. Wediscussed her hypertension and it appears to be on the low end of normal. Because of this we did anorthostatic and there is further drop hence I suggested we reduce verapamil by 50%. Management of lipids is satisfactory. I did advocate the benefits of weight loss as she understands the recommendation.[facility] [address] DO Work Phone: Hospital course Narrative No data available for this section [facility] No data available for this section [facility] No data available for this section [facility]Reason for referral (narrative)No reason for referral information availableL[facility] Work Phone: Summary Purpose Family History No Family History Records FoundUnknown Family Member Name Dates Details Family history of malignant neoplasm: Mother, Father(V16.9, Z80.9) Status:Active Unknown Family Member Name Dates Details Family history of malignant neoplasm: Mother, Father(V16.9, Z80.9) Status:Active Unknown Family Member Name Dates Details Family history of malignant neoplasm: Mother, Father(V16.9, Z80.9) Status:Active Relationship Condition Age at Onset Recorded Date/T ravin father Malignant neoplasm Unknown DeceasedUnknownmotherMalignant neoplasmUnknown Advance Directives No Advanced Directives Records Found Advance Directive Response Recorded Date/ Time Advance Directives Yes March 4:15pm Chief Complaint [facility] is being seen for an annual follow-up of.[facility] is being seen for an annual follow-up of.[facility] is being seen for an annual follow-up of. Chief Complaint and Reason for Visit Chief Complaint Admit Date NPCR PER [facility] MCR; PER Paula PEÑA November 082024 11:32am Chief Complaint Admit Date NPCR PER [facility] MCR; PER Paula PEÑA November 082024 2:35pm Chief Complaint Admit Date NPCR PER [facility] MCR; PER Paula PEÑA November 082024 2:35pm NPCR PER [facility] MCR; PER Paula PEÑA November 112024 12:29pm Reason for Visit Admit Date Anxiety November 08, 2024 2:3 5pm Language impairment November 08, 2024 2:3 5pm Memory loss November 08, 2024 2:3 5pm Primary progressive aphasia November 08, 2024 2:35pm Additional Source Comments INFORMATION SOURCE (unrecogn ized section and content) DATE CREATED AUTHOR 10/01/2017 [facility] DATE CREATED AUTHOR AUTHOR'S ORGANIZ ATION 09/13/2018 [facility] DATE CREATED AUTHOR AUTHOR'S ORGANIZ ATION 01/28/2020 [facility] DATE CREATED AUTHOR AUTHOR'S ORGANIZ ATION 07/17/2022 [facility] DATE CREATED AUTHOR AUTHOR'S ORGANIZ ATION 09/17/2022 [facility] DATE CREATED AUTHOR AUTHOR'S ORGANIZ ATION 09/17/2022 [facility] DATE CREATED AUTHOR AUTHOR'S ORGANIZ ATION 10/25/2023 [facility] DATE CREATED AUTHOR AUTHOR'S ORGANIZ ATION 06/27/2024 [facility] DATE CREATED AUTHOR AUTHOR'S ORGANIZ ATION 09/08/2024 [facility] DATE CREATED AUTHOR AUTHOR'S ORGANIZ ATION 01/09/2025 [facility] DATE CREATED AUTHOR AUTHOR'S ORGANIZ ATION 01/24/2025 [facility] DATE CREATED AUTHOR AUTHOR'S ORGANIZ ATION 02/01/2025 [facility] EPIC REASON FOR VISIT (unrecogniz ed section and content) ReasonCommentsFollow-upReasonCommentsUnable to speakTransient Ischemic Attack Memory LossReasonCommentsTransient Ischemic AttackMemory LossReasonCommentsEye ExamReasonCommentsprimary progressive aphasiaReasonCommentsPost-opE/O STM Follow-upE/O STMReasonCommentsDysphagia Care Teams (unrecognized sec tion and content) Team Status: Inactive Member Role Status Dates Avel Werner MD Attending Provider Active Team MemberRelationshipSpecialtyStart DateEnd Date Dawson Giron MD [address] [place] [address] PCP - Generalmily Gvnwmojz84/19/23Team MemberRelationshipSpecialtyStart Date End Date Dawson Giron MD [address] [place] [address] PCP - Generalmi Pasygzlm20/19/23Team MemberRelationshipSpecialtyStart Date End Date Aga Oakes MD [address] [place] [address] [facility]/21/23Team MemberRelationshipSpecialtyStart DateEnd Date Aga Oakes MD [address] [place] [address] PCP - [facility] Medicine10/21/23 Matti Baird MD [address] [place] [address] Referring KkplhfjziUvzitzchg43/5/24 Chloe Peña PA [address] [place] [address] Physician PxdjjoevhHhllhbklf43/5/24Team MemberRelationshipSpecialtyStart DateEnd Date Aga Oakes MD [address] [place] [phone] PCP - [facility] Medicine10/21/23Team MemberRelationshipSpecialtyStart DateEnd Date Aga Oakes MD [address] [place] [address] PCP - [facility] Medicine10/21/23Team MemberRelationshipSpecialtyStart DateEnd Date Aga Oakes MD [address] [place] [phone] PCP - [facility] Medicine10/21/23 Matti Baird MD [address] [place] [address] Referring QolkmgnamKcorbiets37/5/24 Chloe Peña PA [address] [place] [address] Physician IrfwbkbjeYllcgyepb48/5/24Team MemberRelationshipSpecialtyStart DateEnd Date Aga Oakes MD [address] [place] [phone] PCP - [facility] Medicine10/21/23 Matti Baird MD [address] [place] [address] Referring FzufzxknhBfohxdhoo25/5/24 Chloe Peña PA [address] [place] [address] Physician TnialsvziZsxuswuij35/5/24Te MemberRelationshipSpecialtyStart DateEnd Date Aga Oakes MD [address] [place] [address] PCP - [facility]10/21/23 Matti Baird MD [address] [place] [address] Referring VkfmjzlkpPddufkdyt81/5/24 Chloe Peña PA [address] [place] [address] Physician MfdqwokuqWeuesfodf64/5/24Team MemberRelationshipSpecialtyStart DateEnd Date Aga Oakes MD [address] [place] [phone] PCP - [facility] Medicine10/21/23 Matti Baird MD [address] [place] [address] Referring QnvbxfgugMfdvceaji73/5/24 Chloe Peña PA [address] [place] [address] Physician WgzmmqicaUfxnresxx28/5/24Team MemberRelationshipSpecialtyStart DateEnd Date Aga Oakes MD [address] [place] [phone] PCP - [facility]10/21/23 Matti Baird MD [address] [place] [address] Referring MljqupbgnFbijorsos15/5/24 Chloe Peña PA [address] [place] [address] Physician ZdmxdrqweZoyafjhqb95/5/24 Team Status: Active Member Role Status Dates NON STAFF Primary Care Provider Active Team Status: Inactive Member Role Status Dates Chris Falk , PhD Attending Provider Active Start: November 08, 2024 End: November 08, 2024NON STAFFPrimary Care ProviderActiveStart: November 08, 2024 End: November 08, 2024 Team Status: Inactive Member Role Status Dates NON STAFF Primary Care Provider Active Start: November 08, 2024 End: November 08, 2024Chris Falk PhDAttending ProviderActiveStart: November 08, 2024 End: [place] 4th, 2025 Team Status: Inactive Member Role Status Dates NON STAFF Primary Care Provider Active Start: November 11, 2024 End: November 11, 2024Chris Falk , PhDAttending ProviderActiveStart: November 11, 2024 End: November 11, 2024 Team Status: Inactive Member Role Status Dates NON STAFF Primary Care Provider Active Start: November 16, 2024 End: November 16, 2024Chris Falk PhDAttending ProviderActiveStart: November 16, 2024 End: November 16, 2024Team MemberRelationshipSpecialtyStart DateEnd Date Aga Oakes DO [address] [place] [phone] PCP - [facility] Medicine10/21/23 Matti Baird MD [address] [place] [address] Referring IrorvwrejTsriaonzv54/5/24 Chloe Peña PA [address] [place] [phone] Physician WlbzodaxtIhngenttj05/5/24Team MemberRelationshipSpecialtyStart DateEnd Date Aga Oakes DO [address] [place] [phone] PCP - [facility] Medicine10/21/23 Matti Baird MD [address] [place] [address] Referring ZxjorrsonYztwsczfz70/5/24 Chloe Peña PA [address] [place] [address] Physician IydkfhodoWpyimvarh33/5/24Team MemberRelationshipSpecialtyStart DateEnd Date Dawson Giron MD PCP - [facility] Ixuflwki53/19/237 Aga Oakes DO [address] [place] [address] PCP - [facility]10/21/23 Matti Baird MD [address] [place] [address] Referring XlsipdsaqRokbakfct31/5/24 Chloe Peña PA [address] [place] [address] Physician NfwqvoqpfNuvpcmuch01/5/24 Goals (unrecognized section and content) Goals may be documented in a n alternate section FOR RECORDS PERTAINING TO PATIENTS WHO ARE OR HAVE BEEN ENROLLED IN A CHEMICAL DEPENDENCY/SUBSTANCEABUSE PROGRAM, SOME INFORMATION MAY BE OMITTED. This clinical summary was aggregated from multiple sources. Caution should be exercised in using it in the provision of clinical care. This summary normalizes information from multiple sources, and as a consequence, information in this document may materially change the coding, format and clinical context of patient data. In addition, data may be omitted in some cases. CLINICAL DECISIONS SHOULD BE BASED ON THE PRIMARY CLINICAL RECORDS. [email or web address] [facility]. provides no warranty or guarantee of the accuracy or completeness of information in this document.
--- NOTE | 2025-02-08 11:57 | PM.WCHP ---
Wound Care H&P: HPI History of Present Illness Narrative: Mrs. Asher is a pleasant 84 year old female who presents for toenail care and callus management of both feet. She states her toenails and calluses are painful. She does not know her medications and is an overall poor historian. Exam Narrative: Exam Narrative: General: Elderly, well groomed, walks with shuffling gait Derm: Skin of the lower legs is diffusely dry and thin. No open wounds noted. Toenails 1-10 are thickened, mycotic, incurvated, and elongated. Hallux toenails are ingrown bilaterally without paronychia. Calllus formation noted beneath the left 1st MPJ. Vasc: superficial varicosities noted on BLE. D pulses are 2/4 bilaterally. PT is 2/4 on the right and 1/4 on the left. Feet are warm with brisk cap refill. Digital hair is absent. Neuro: achilles DTRs 2+ bilaterally, vibratory sensation intact bilaterally, protective sensation intact to both feet MSK: bilateral bunion deformity with crowding and contractures of the lesser toes. Anterior fat pad atrophy noted. Assessment and Plan Assessment and Plan (1) Tinea unguium: (2) Pain around toenail: (3) Unsteady gait when walking: (4) Ingrown nail: Plan Routine toenail and callus care performed. Follow up in 3 months, sooner if any issues arise. Acute Procedures Podiatry Nail Debridement Class B Findings Advanced trophic changes as evidenced by any three of the following: decreased hair growth, nail changes (thickening) and skin texture (thin or shiny) Class C Findings Claudication: No Temperature changes: No Edema: Yes Nail debridement paresthesia (abnormal spontaneous sensations in the feet): No Burning: No Qualifies If: Qualifiers If:: A patient qualifies for nail debridement if they have: 1 class A finding (Q7) 2 class B findings (Q8) OR 1 class B & 2 class C findings in addition to a primary condition (Q9) Nail Procedure Nail Procedure Time out: Yes Nail procedure: other ((1) toenail debridement toes 1-10, (2) callus paring 1 lesion right plantar foot) Number of affected nails: 10 Location (toes): left and right Procedure successful: Yes Patient tolerated procedure: well and no complications Additional comments: Toenails 1-10 were sharply debrided with nail nippers without incident. Ingrown nails were removed from the medial hallux nails bilaterally. Callus beneath the left 1st MPJ was pared with a dermal curette without incident. She noted pain rellief after both procedures.
== END 2025-02-08 10:31 | disposition home or self-care (01) ==
LOC: WC 10:31
PROVIDERS: Visit Provider Physician Assistant
DX: B35.1 Tinea unguium (principal); M79.676 Pain in unspecified toe(s); R26.81 Unsteadiness on feet; L60.0 Ingrowing nail
CPT/HCPCS: 11056; 11721